=== PATIENT | male | born 1930 | race Caucasian/White ===

== ENCOUNTER 2016-12-13 12:11 | Outpatient (CLI) ==
[2014-11-26 08:01] VITALS: BMI 23.0
== END 2016-12-13 12:12 | disposition home or self-care (01) ==
LOC: LAB 12:11
PROVIDERS: ATTEND General Practice
DX: L02.91 Cutaneous abscess, unspecified (principal)
CPT/HCPCS: 87070; 87186

== ENCOUNTER 2016-12-15 10:36 | Inpatient (IN) | payer OTHER ==
[2016-12-15 11:13] VITALS: BMI 24.3
[2016-12-15] MEDS ORDERED: NON-FORMULARY MEDICATION (Clindamycin Hcl [Clindamycin Hcl] 300 MG) PO SCH (12:30)
[2016-12-15] MEDS: INFUVITE ADULT 10 ML in D5%-1/2NS-KCL 20 MEQ/L IV SOL 1,000 ML IV SCH (13:35)
[2016-12-15] MEDS: CLEOCIN PO SCH ×2 (14:07→17:04)
[2016-12-15 16:39] LABS: BASOPHILS # (AUTO) 0.1 K/uL (0-0.2); BASOPHILS % (AUTO) 1.1 % (0.0-3.0); EOSINOPHILS # (AUTO) 0.4 K/ul (0.0-0.7); EOSINOPHILS % (AUTO) 3.8 % (0.0-7.0); HEMATOCRIT 49.7 % (42.0-52.0); HEMOGLOBIN 16.4 g/dl (14.0-18.0); IMMATURE GRANULOCYTE % (AUTO) 0.5 % (0.0-5.0); LYMPHOCYTES # (AUTO) 1.6 K/uL (0.60-3.4); LYMPHOCYTES % (AUTO) 16.5 (10.0-50.0); MEAN CORPUSCULAR HEMOGLOBIN 31.8 pg (27.0-31.0); MEAN CORPUSCULAR VOLUME 96.3 fl (80.0-94.0); MONOCYTES # (AUTO) 1.4 K/uL (0.4-2.0); NEUTROPHILS # (AUTO) 6.2 K/ul (2.0-6.9); NEUTROPHILS % (AUTO) 64.1; PLATELET COUNT 238 10^3/uL (140-440); RED BLOOD COUNT 5.16 10^6/ul (4.70-6.10); WHITE BLOOD COUNT 9.64 K/ul (4.2-10.2)
[2016-12-15] MEDS: GLUCOPHAGE PO SCH (17:03)
[2016-12-15 17:11] LABS: ALBUMIN 3.3 g/dL (3.4-5.0); ALBUMIN/GLOBULIN RATIO 0.97; ANION GAP 13.3; BILIRUBIN,TOTAL 1.06 mg/dL (0.00-1.20); BUN/CREATININE RATIO 21.15; CALCIUM 9.2 mg/dL (8.2-10.2); CHOL/HDL RATIO 4.4 (4.5-6.4); CREATININE 1.04 mg/dL (0.60-1.10); POTASSIUM 4.3 mmol/L (3.5-5.1); TOTAL PROTEIN 6.7 g/dL (5.8-8.1)
[2016-12-15 17:27] LABS: BILIRUBIN,URINE Negative (NEGATIVE); KETONES,URINE Negative (NEGATIVE); LEUKOCYTE ESTERASE ,URINE Negative (NEGATIVE); NITRITE,URINE Negative (NEGATIVE); PH,URINE 5.5 (5-9); PROTEIN,URINE Negative (NEGATIVE); URINE, BLOOD Negative (NEGATIVE)
[2016-12-15] MEDS ORDERED: CLEOCIN ONE (20:59)
[2016-12-15] MEDS: CLEOCIN 300 MG in SODIUM CHLORIDE 50 ML IV SCH (20:59)
[2016-12-15] MEDS: JANUVIA PO SCH (21:03)
[2016-12-15] MEDS: ZOCOR PO SCH (21:03)
[2016-12-15 21:06] LABS: ADD URINE MICROSCOPIC NO
[2016-12-16] MEDS ORDERED: CLEOCIN ONE ×2 (00:34→06:19)
[2016-12-16] MEDS: CLEOCIN 300 MG in SODIUM CHLORIDE 50 ML IV SCH ×2 (00:53→06:23)
[2016-12-16] MEDS ORDERED: INFUVITE ADULT IV ONE ×2 (01:52→17:35)
[2016-12-16] MEDS: INFUVITE ADULT 10 ML in D5%-1/2NS-KCL 20 MEQ/L IV SOL 1,000 ML IV SCH ×2 (02:49→17:39)
[2016-12-16] MEDS: GLUCOPHAGE PO SCH ×2 (08:05→19:14)
[2016-12-16] MEDS: ZETIA PO SCH (08:06)
[2016-12-16] MEDS: LANOXIN PO SCH (08:06)
[2016-12-16] MEDS: HUMALOG SUBCUT PRN (08:07)
[2016-12-16] MEDS ORDERED: DIGOXIN 0.25 MG PO SCH (09:00)
--- NOTE | 2016-12-16 11:29 | HP ---
CHIEF COMPLAINT: Poor appetite, weakness, dehydration. SOURCE OF HISTORY: Caregiver, plus daughter. HISTORY OF PRESENT ILLNESS: The patient was seen 12/13/2016 at the office because of the raised red area with tenderness in the lower abdomen. The caregiver mentioned that she did only notice that today, the day of presentation to the office. The surrounding area was firm and measures approximately 8 X 5 or 6 cm. The area was cleaned with Betadine and the scab was removed. It revealed 5 small openings surrounding the central opening exuding purulent material. It appeared to be a carbuncle. Culture and sensitivity specimen was obtained. There is surrounded necrotic tissue at the center. The patient was then treated with Clindamycin 300 mg every 6 hours by mouth. The patient was seen today at the office and the caregiver, as well as the daughter mentioned that the patient had not been eating, nor drinking. He does look weaker and more or less drowsy. Culture revealed staph aureus methicillin resistant. Because of the poor intake of solids and liquids and being diabetic that I felt the patient required admission to apply fluids, as well as electrolytes and control the blood sugar and administer the antibiotics IV. No sensitivity results yet available to me at the time of presentation at the office. The patient and the daughter was agreeable for the planned admission. PAST PERSONAL HISTORY: The patient had previous deep venous thrombosis and has an inferior vena cava filter. She was recently diagnosed with diabetes mellitus. The patient had minimal cognitive impairment in 2008 that progressed remarkable to now. The patient had atrial fibrillation treated with medication plus a pacemaker. Prostatic carcinoma operated, inguinal hernia operated, cardiac catheterization and angioplasty with stent application. Pneumonia, degenerative disc disease, as well as degenerative joint disease of knees. Venous insufficiency bilateral with venous discoloration, subacute subdural hematoma left that was operated frontal bore hole left 2010. He had an episode of fall back in 2010. FAMILY HISTORY: Mother had CVA and cerebral tumor, plus diabetes. Father had chronic obstructive lung disease with respiratory failure. SOCIAL HISTORY: The patient is a and resides at the [facility] and has a caregiver in the morning. He does not smoke any cigarettes or drink any alcoholic beverages. MEDICATIONS: Prior to this admission. Simvastatin 40 mg daily Zetia 10 mg daily Digoxin 0.25 mg daily Benadryl 4.5 mg twice a day Ocuvite Vitamin one daily ALLERGIES: Codeine. REVIEW OF SYSTEMS: CONSTITUTIONAL: The patient had no fever and no chills, but is seemingly fatigued by his general appearance compared to two days ago. CARRY ALL DRIVER: The patient has cognitive problems. No seizures or no loss of consciousness. VISUAL: The patient is able to see well, but difficult to assess whether he has transient loss of vision. He denies any double vision. AUDITORY: The patient has hearing aid, but no pain. RESPIRATORY: Negative. CARDIOVASCULAR: Denies any chest pain or chest oppression. GASTROINTESTINAL: The patient has poor appetite and intake of solids and liquids are markedly low. The patient claimed to be not feeling well and has no appetite to eat. GENITOURINARY: The patient is incontinent of urine. MUSCULOSKELETAL: The patient has problems with weakness and also with balance and needed to walk with someone. INTEGUMENT: The patient has a raised red area in the lower abdomen below the umbilicus with central necrosis about 5 mm in size. The opening surrounding the central larger one is not draining anymore. The caregiver did claim that it had drained a lot from the previous dressing. He also has one area on the right dorsal surface of the index finger. It is not draining. ENDOCRINE: The patient was noted to have diabetes about one month ago. HEMATOLOGIC: No history of prolonged bleeding and no subcutaneous ecchymosis. PSYCHIATRIC: The patient has cognitive impairment. Affect appears to be okay. PHYSICAL EXAMINATION: GENERAL: We have an 86 year old male admitted to the hospital because of poor oral intake of solids and liquids and more weakness. He has an abscess in the lower abdominal wall and the culture showed MRSA. He is also diabetic. VITAL SIGNS: Temperature 97.5, pulse 92, blood pressure 141/80, respiratory rate 20, oxygen saturation 94 at room air. HEAD: Unremarkable. FACE: Symmetrical and equal with no facial weakness. Palpation of the frontal and maxillary sinus areas does not cause any pain. EYES: Pupils equal/reactive to light. Conjunctivae not pale. Sclerae not icteric. MOUTH: Unremarkable. THROAT: No inflammation, tumors or exudate. NECK: No masses. No bruit. No tenderness. No rigidity. CHEST: Symmetrical and equal with good expansion. LUNGS: Breath sounds are heard in both sides. No rales or wheezing. HEART: Audible and regular, probably because of the pacemaker. No murmurs. ABDOMEN: Flat with raised red area with a central necrotic area surrounded by five small openings, mid lower abdomen below the umbilicus. Surrounding area is indurated and less tender. The rest of the abdomen is unremarkable and the bowel sounds were active. EXTERNAL GENITALIA: Not examined. RECTAL: Not examined. LOWER EXTREMITIES: Essentially symmetrical and equal with venous discoloration. The pedal pulses are absent. UPPER EXTREMITIES: Symmetrical and equal. ASSESSMENT: 1. ABSCESS LOWER ABDOMEN, MRSA 2. DIABETES MELLITUS, UNCONTROLLED 3. ANOREXIA 4. DEHYDRATION, PROBABLE 5. HISTORY OF ATRIAL FIBRILLATION WITH PACEMAKER 6. HISTORY OF SUBDURAL HEMATOMA, EVACUATED 7. SENILE DEMENTIA PROGRESSIVE 8. URINARY INCONTINENCE 9. HISTORY OF PROSTATIC CARCINOMA OPERATED PROGNOSIS: Guarded. MTDD
[2016-12-16] MEDS: CLEOCIN 600 MG in SODIUM CHLORIDE 50 ML IV SCH ×2 (12:49→20:31)
[2016-12-16] MEDS: JANUVIA PO SCH (20:31)
[2016-12-16] MEDS: ZOCOR PO SCH (20:32)
[2016-12-16] MEDS: AMBIEN PO PRN (22:12)
[2016-12-17] MEDS ORDERED: INFUVITE ADULT IV ONE ×2 (04:37→22:56)
[2016-12-17] MEDS: CLEOCIN 600 MG in SODIUM CHLORIDE 50 ML IV SCH ×3 (04:41→21:30)
[2016-12-17] MEDS: INFUVITE ADULT 10 ML in D5%-1/2NS-KCL 20 MEQ/L IV SOL 1,000 ML IV SCH ×3 (06:32→23:40)
[2016-12-17 06:58] LABS: BASOPHILS # (AUTO) 0.1 K/uL (0-0.2); BASOPHILS % (AUTO) 1.3 % (0.0-3.0); EOSINOPHILS # (AUTO) 0.5 K/ul (0.0-0.7); EOSINOPHILS % (AUTO) 5.6 % (0.0-7.0); HEMATOCRIT 46.9 % (42.0-52.0); HEMOGLOBIN 15.7 g/dl (14.0-18.0); IMMATURE GRANULOCYTE % (AUTO) 0.7 % (0.0-5.0); LYMPHOCYTES # (AUTO) 1.9 K/uL (0.60-3.4); LYMPHOCYTES % (AUTO) 19.4 (10.0-50.0); MEAN CORPUSCULAR HEMOGLOBIN 31.8 pg (27.0-31.0); MEAN CORPUSCULAR HGB CONC 33.5 (31.8-35.4); MEAN CORPUSCULAR VOLUME 94.9 fl (80.0-94.0); MONOCYTES # (AUTO) 1.4 K/uL (0.4-2.0); MONOCYTES % (AUTO) 14.1 (0-10); NEUTROPHILS # (AUTO) 5.7 K/ul (2.0-6.9); NEUTROPHILS % (AUTO) 58.9; PLATELET COUNT 247 10^3/uL (140-440); RED BLOOD COUNT 4.94 10^6/ul (4.70-6.10); WHITE BLOOD COUNT 9.63 K/ul (4.2-10.2)
[2016-12-17] MEDS ORDERED: DIGOXIN 0.25 MG PO SCH (09:00)
[2016-12-17] MEDS: ZETIA PO SCH (09:12)
[2016-12-17] MEDS: GLUCOPHAGE PO SCH ×2 (09:12→17:45)
[2016-12-17 14:14] LABS: ALBUMIN 3.4 g/dL (3.4-5.0); ALBUMIN/GLOBULIN RATIO 1.1; ANION GAP 16.9; BILIRUBIN,TOTAL 1.26 mg/dL (0.00-1.20); BUN/CREATININE RATIO 12.79; CALCIUM 8.9 mg/dL (8.2-10.2); CREATININE 0.86 mg/dL (0.60-1.10); POTASSIUM 4.9 mmol/L (3.5-5.1); TOTAL PROTEIN 6.5 g/dL (5.8-8.1)
[2016-12-17] MEDS: AMBIEN PO PRN (21:29)
[2016-12-17] MEDS: ZOCOR PO SCH (21:30)
[2016-12-17] MEDS: JANUVIA PO SCH (21:30)
[2016-12-18] MEDS: CLEOCIN 600 MG in SODIUM CHLORIDE 50 ML IV SCH (05:00)
[2016-12-18] MEDS: GLUCOPHAGE PO SCH (09:10)
[2016-12-18] MEDS: ZETIA PO SCH (09:10)
[2016-12-18] MEDS: LANOXIN PO SCH (09:11)
[2016-12-18] MEDS: HUMALOG SUBCUT PRN (09:11)
[2016-12-18] MEDS ORDERED: CLEOCIN 600 MG in SODIUM CHLORIDE 100 ML IV SCH (13:00)
[2016-12-18] MEDS ORDERED: BACTROBAN TP ONE (14:18)
[2016-12-18 15:07] VITALS: BP 132/71; TEMP 97.6
[2016-12-18] MEDS ORDERED: BACTROBAN TP SCH (21:00)
--- NOTE | 2016-12-19 09:24 | PN ---
DATE OF VISIT: 12/16/16 SUBJECTIVE: The patient is alert but responsive but very forgetful. He does have senile dementia, probably Alzheimer's. This had been ongoing for some time. The abdominal infection shows regression of the redness as well as the induration. This patient is receiving Clindamycin 600 mg q.8hr. The wound culture was sensitive to Clindamycin, Staph MRSA. The patient did not sleep very well last night and the patient will be given Ambien 5 mg to see if he goes to sleep. We had been giving him Benadryl at the [facility]. Benadryl is not quite a good medication for someone who is old and with senile dementia. Trazodone may be used if Ambien does not help him. OBJECTIVE: V/S: Today at 6:25 p.m. 12/16/16 showed temperature 97.9, pulse 92, BP 142/80, respiratory rate 20, oxygen saturation 96% on room air. PLAN: New anticoagulant medication given since this patient ahd previous subdural hematoma. Blood sugar yesterday was 111 fasting. He was placed on Humalog p.r.n. for protochol before meals. CBC and CMP is ordered for tomorrow. MTDD
--- NOTE | 2016-12-19 15:13 | DS ---
PATIENT IDENTIFICATION: 86 year old male who was seen initially on at the office because of raised red area and tender on the lower abdomen between the symphysis and umbilicus. The caregiver mentioned that she just noticed it today. It wasn't there yesterday. The area on inspection initially had a scabbed center and the area was then prepped with Betadine and the scab was removed. It revealed a rounded central necrotic area about 3 mm in size or slightly bigger surrounded by five small tiny openings. Pressure applied on the indurated surface produced drainage through the opening. Culture and sensitivity was obtained at the office visit and the patient was placed on Clindamycin 300 mg every 6 hours. He was seen on follow up on 12/15/16 and the area is less erythematous and the induration is less. It is minimally less. The patient's daughter, as well as caregiver, told me that the patient had not been eating or drinking. Because of this infection, plus the diabetes mellitus and the anorexia, the patient was felt to require admission to the hospital and was then admitted. HOSPITAL COURSE: The patient is known to have senile dementia, moderate to severe without any psychotic episodes. The patient does follow verbal commands , although he is hard of hearing also. LUNGS: Clear to auscultation, although diminished in both sides. HEART: Normal sinus rhythm. ABDOMEN: Unremarkable aside from the area that is infected, probably carbuncle. VITAL SIGNS: On admission, Temperature 97.3, axillary, pulse 65, blood pressure 133/78, left, 133/74 right, respiratory rate 16, oxygen saturation on room air 96. 5'11", 174 pounds and 9.6 ounces. BMI 24.4. The patient had a CBC times two showing normal WBC and essentially the same on admission and also on the third hospital day. No stabs. Chemistries showed a BUN of 22, creatinine 1.04, GFR, estimated 68, blood sugar 111, A1C 10.4. Wound culture showed staph aureus methicillin resistant, but sensitive to Clindamycin. The patient was then placed on Clindamycin 300 mg every 6 hours IV piggyback and was changed to 600 mg every 8 hours at the suggestion of the Retaining Room Cutter for the hospital. The patient continued to have a normal temperature, afebrile throughout his hospital stay. His blood pressure had fluctuated, but remained mostly normal throughout the hospital stay and respiratory rate fluctuated from 16 to 20 and oxygen saturation from 94 to 96 at room air. His appetite is improved and he ate 100% on 12/17/2016 and also a good appetite on 12/18/2016. His general appearance is good. He was not dyspneic, nor tachypneic. The lungs with breath sounds somewhat diminished, but no rales or wheezing. The heart is audible and regular with good tones. The abdomen is soft with no tenderness. The bowel sounds are active. The indurated area with abscess is much, much smaller. The central necrotic tissue was removed. Lower extremities changes from venous insufficiency, but no tenderness on the calf muscles and no pain on palpation. Upper extremities were symmetrical and equal. FINAL DIAGNOSES: 1. CARBUNCLE LOWER ABDOMEN BELOW THE UMBILICUS, STAPH AUREUS METHICILLIN RESISTANT 2. DIABETES MELLITUS TYPE II 3. SENILE DEMENTIA/ALZHEIMER'S, MODERATE TO SEVERE 4. PERIPHERAL ARTERIAL DISEASE, ABSENT TIBIAL PULSES 5. BILATERAL LOWER LEG AND ANKLE DISCOLORATION SECONDARY TO VENOUS INSUFFICIENCY 6. HISTORY OF SUBDURAL HEMATOMA, SMALL, OPERATED 2010 7. HISTORY OF PROSTATIC CARCINOMA, OPERATED 8. CORONARY ARTERY DISEASE, STATUS POST CARDIAC CATH, PLUS ANGIOPLASTY AND STENT PROGNOSIS: Guarded to poor with regards to his general condition, not the abscess. CRISTYD
--- NOTE | 2017-02-24 15:13 | PN ---
DATE OF VISIT: 12/17/2016 The patient is alert and responsive, but has poor recollection of recent events. The patient did eat quite well today consuming most of his meals. The patient is incontinent of urine. VITAL SIGNS: At 6 p.m. on 12/17/16 showed a temperature of 97.6, pulse of 60, blood pressure 128/80, respiratory rate 14. Oxygen saturation in the early part of the day 5:54 a.m. was 97 at room air. The patient is receiving Clindamycin IV at 300 mg every 6 hours. Clindamycin was increased to 600 mg every 8 hours since 12/16/2016. The patient also received a multivitamin in the IV. No anticoagulant medication is given since this patient has previous subdural hematoma. CONDITION: Improved. MTDD
== END 2016-12-18 15:25 | disposition home or self-care (01) | DRG 603 ==
LOC: SCU 10:36
PROVIDERS: ADMIT General Practice; ATTEND General Practice
DX: L02.231 Carbuncle of abdominal wall (principal); B95.62 Methicillin resistant Staphylococcus aureus infection as the cause of diseases classified elsewhere; E11.9 Type 2 diabetes mellitus without complications; G30.9 Alzheimer's disease, unspecified; F02.80 Dementia in other diseases classified elsewhere, unspecified severity, without behavioral disturbance, psychotic disturbance, mood disturbance, and anxiety; I73.9 Peripheral vascular disease, unspecified; R09.89 Other specified symptoms and signs involving the circulatory and respiratory systems; I25.10 Atherosclerotic heart disease of native coronary artery without angina pectoris; R53.1 Weakness; R63.0 Anorexia; Z86.79 Personal history of other diseases of the circulatory system; Z95.5 Presence of coronary angioplasty implant and graft; Z85.46 Personal history of malignant neoplasm of prostate; Z79.84 Long term (current) use of oral hypoglycemic drugs; Z79.899 Other long term (current) drug therapy
CPT/HCPCS: 36415; 80053; 80061; 80162; 81001; 82962; 83036; 85025; 87070; 87081; 87186; 99223; 99232; 99239

== ENCOUNTER 2016-12-24 09:46 | Inpatient (IN) ==
[2016-12-24] MEDS ORDERED: SODIUM CHLORIDE 1,000 ML IV STA (10:20)
--- NOTE | 2016-12-24 10:20 | ED.PDOC ---
General ED Provider: Dr. FITZ SY Chief Complaint: Abdominal Pain Stated Complaint: Points to abdomen - site of pain. Reportedly winces with pressure uppper abdomen. Time Seen by Physician: 10:05 Mode of Arrival: Wheelchair Information Source: Patient, Family Primary Care Provider: MATT MADRIGAL-[facility] Nursing and Triage Documentation Reviewed and Agree: Yes GI Complaint Exam - Abdominal Pain Complaint/Exam Onset: Gradual Duration: Several days diarrhea; has been on Clinda for MRSA - DC'd from hosp 1 week Symptoms Are: Still present (Finished clinda ; decreased apetite still) Timing: Intermittent (sometimes indicates pain with caregiver) Initial Severity: Mild Current Severity: Mild Location of Pain: Discrete (pointed to site of MRSA) Character: Reports: Unable to describe (Patient not good historian; confusion) Aggravating: Reports: None Alleviating: Reports: None Associated Signs and Symptoms: Reports: Fever (occasional), Cough (some) Review of Systems - Review Of Systems Constitutional: Reports: Malaise Respiratory: Reports: Cough, Wheezing (per caregiver) GI: Reports: Abdominal pain, Diarrhea All Other Systems: Reviewed and Negative Past Medical History - Past Medical History Previously Healthy: No (extended care) Endocrine: Reports: Dyslipidemia Cardiovascular: Reports: CAD Respiratory: Reports: None Hematological: Reports: None Gastrointestinal: Reports: Unknown Genitourinary: Reports: Other (Prostate) 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) Musculoskeletal: Reports: Unknown Cancer: Reports: Other (Prostate) - Surgical History General Surgical History: Reports: Pacemaker, Other (Angioplasty) - Family History Family History: Reports: Unknown - Social History Smoking Status: Never smoker Hx Substance Use: No Alcohol Screening: None Physical Exam - Physical Exam Appearance: Ill-appearing Ill-appearing: Mild Pain Distress: Mild Eyes: DOYLE, EOMI ENT: Oropharynx normal Neck: Supple Respiratory: Airway patent, Rhonchi (coarse R Lower Lobe) Musculoskeletal: ROM intact, No edema Skin: Warm, Dry, Normal color Neurological: Sensation intact, Motor intact, Alert Psychiatric: Affect appropriate Interpretation - Radiology Interpretation Radiology Interpretation By: Radiologist Radiology Results: No acute changes Exam Interpreted: CT Scan (Abdomen pelvis without) Xray Comments: No acoute intra-abdominal or pelvic process to account for symptoms Critical Care Note - Critical Care Note Total Time (mins): 40 Course - Course Hematology/Chemistry: 12/24/16 10:10 12/24/16 10:10 Orders, Labs, Meds: Lab Review 12/24/16 10:10 WBC 9.20 RBC 5.26 Hgb 17.0 Hct 48.4 MCV 92.0 MCH 32.3 H MCHC 35.1 RDW Coeff of Arpit 12.7 Plt Count 256 Immature Gran % (Auto) 0.7 Neut % (Auto) 68.5 Lymph % (Auto) 16.8 [place] % (Auto) 11.6 H Eos % (Auto) 1.4 Baso % (Auto) 1.0 Immature Gran # (Auto) 0.1 Neut # 6.3 Lymph # 1.6 [place] # 1.1 Eos # 0.1 Baso # 0.1 Sodium 140 Potassium 4.2 Chloride 107 Carbon Dioxide 19 L Anion Gap 18.2 BUN 27 H Creatinine 1.36 H Estimated GFR (MDRD) 50.00 BUN/Creatinine Ratio 19.85 Glucose 111 Calcium 9.7 Total Bilirubin 1.84 H AST 25 ALT 23 Alkaline Phosphatase 68 Total Protein 7.1 Albumin 3.9 Globulin 3.2 Albumin/Globulin Ratio 1.22 Orders Category Date Time Status ADMIT PATIENT INPATIENT .TO [facility] (NON-MONITORED ADMISSION 12/24/16 13: 02 Active BED) INTAKE & OUTPUT Q8HR CARE 12/24/16 13:02 Active VITAL SIGNS Q8HR CARE 12/24/16 13:02 Active REGULAR DIET DIETARY 12/24/16 Dinner Ordered CBC W/ AUTO DIFF DAILY@0600 LAB 12/25/16 06:00 Ordered CBC W/ AUTO DIFF DAILY@0600 LAB 12/26/16 06:00 Ordered CBC W/ AUTO DIFF DAILY@0600 LAB 12/27/16 06:00 Ordered CBC W/ AUTO DIFF DAILY@0600 LAB 12/28/16 06:00 Ordered CBC W/ AUTO DIFF DAILY@0600 LAB 12/29/16 06:00 Ordered CBC W/ AUTO DIFF DAILY@0600 LAB 12/30/16 06:00 Ordered CBC W/ AUTO DIFF DAILY@0600 LAB 12/31/16 06:00 Ordered CBC W/ AUTO DIFF DAILY@0600 LAB 01/01/17 06:00 Ordered CBC W/ AUTO DIFF DAILY@0600 LAB 01/02/17 06:00 Ordered CBC W/ AUTO DIFF DAILY@0600 LAB 01/03/17 06:00 Ordered CBC W/ AUTO DIFF DAILY@0600 LAB 01/04/17 06:00 Ordered CBC W/ AUTO DIFF DAILY@0600 LAB 01/05/17 06:00 Ordered CBC W/ AUTO DIFF DAILY@0600 LAB 01/06/17 06:00 Ordered CBC W/ AUTO DIFF DAILY@0600 LAB 01/07/17 06:00 Ordered CBC W/ AUTO DIFF DAILY@0600 LAB 01/08/17 06:00 Ordered CBC W/ AUTO DIFF DAILY@0600 LAB 01/09/17 06:00 Ordered CBC W/ AUTO DIFF DAILY@0600 LAB 01/10/17 06:00 Ordered CBC W/ AUTO DIFF DAILY@0600 LAB 01/11/17 06:00 Ordered CBC W/ AUTO DIFF DAILY@0600 LAB 01/12/17 06:00 Ordered CBC W/ AUTO DIFF DAILY@0600 LAB 01/13/17 06:00 Ordered CBC W/ AUTO DIFF Stat LAB 12/24/16 10:10 Completed COMPREHENSIVE METABOLIC PANEL DAILY@0600 LAB 12/25/16 06:00 Ordered COMPREHENSIVE METABOLIC PANEL DAILY@0600 LAB 12/26/16 06:00 Ordered COMPREHENSIVE METABOLIC PANEL DAILY@0600 LAB 12/27/16 06:00 Ordered COMPREHENSIVE METABOLIC PANEL DAILY@0600 LAB 12/28/16 06:00 Ordered COMPREHENSIVE METABOLIC PANEL DAILY@0600 LAB 12/29/16 06:00 Ordered COMPREHENSIVE METABOLIC PANEL DAILY@0600 LAB 12/30/16 06:00 Ordered COMPREHENSIVE METABOLIC PANEL DAILY@0600 LAB 12/31/16 06:00 Ordered COMPREHENSIVE METABOLIC PANEL DAILY@0600 LAB 01/01/17 06:00 Ordered COMPREHENSIVE METABOLIC PANEL DAILY@0600 LAB 01/02/17 06:00 Ordered COMPREHENSIVE METABOLIC PANEL DAILY@0600 LAB 01/03/17 06:00 Ordered COMPREHENSIVE METABOLIC PANEL DAILY@0600 LAB 01/04/17 06:00 Ordered COMPREHENSIVE METABOLIC PANEL DAILY@0600 LAB 01/05/17 06:00 Ordered COMPREHENSIVE METABOLIC PANEL DAILY@0600 LAB 01/06/17 06:00 Ordered COMPREHENSIVE METABOLIC PANEL DAILY@0600 LAB 01/07/17 06:00 Ordered COMPREHENSIVE METABOLIC PANEL DAILY@0600 LAB 01/08/17 06:00 Ordered COMPREHENSIVE METABOLIC PANEL DAILY@0600 LAB 01/09/17 06:00 Ordered COMPREHENSIVE METABOLIC PANEL DAILY@0600 LAB 01/10/17 06:00 Ordered COMPREHENSIVE METABOLIC PANEL DAILY@0600 LAB 01/11/17 06:00 Ordered COMPREHENSIVE METABOLIC PANEL DAILY@0600 LAB 01/12/17 06:00 Ordered COMPREHENSIVE METABOLIC PANEL DAILY@0600 LAB 01/13/17 06:00 Ordered COMPREHENSIVE METABOLIC PANEL Stat LAB 12/24/16 10:10 Completed Digoxin [Lanoxin] MEDS 12/26/16 09:00 Discontinued 0.25 mg PO EVERY OTHER DAY Digoxin [Lanoxin] MEDS 12/26/16 09:00 Ordered 125 mcg PO EVERY OTHER DAY Ezetimibe [Zetia] MEDS 12/25/16 09:00 Ordered 10 mg PO DAILY Metformin HCl [Glucophage] MEDS 12/24/16 21:00 Ordered 500 mg PO BID Occuvite Vitamin MEDS 12/25/16 09:00 Ordered 1 tab PO DAILY Simvastatin [Zocor] MEDS 12/24/16 21:00 Ordered 40 mg PO BEDTIME Sitagliptin Phosphate [Januvia] MEDS 12/25/16 06:00 Ordered 50 mg PO DAILY LAB Sodium Chloride 0.9% [Sodium Chloride] 1,000 ml MEDS 12/24/16 10:20 Active IV 125 mls/hr CHEST, 1V AP ONLY Stat RADS 12/24/16 10:[address] ABDOMEN/PELVIS WO CONTRAST Stat RADS 12/24/16 12:14 Completed Medications Generic Name Dose Route Start Last Admin Trade Name Freq PRN Reason Stop Dose Admin Digoxin 125 mcg 12/26/16 09:00 Lanoxin PO EVERY OTHER DAY NORMA Ezetimibe 10 mg 12/25/16 09:00 Zetia PO DAILY NORMA Sodium Chloride 1,000 mls @ 125 mls/hr 12/24/16 10:20 12/24/16 10:26 Sodium Chloride IV 12/24/16 18:19 125 mls/hr .Q8H STA Administration Metformin HCl 500 mg 12/24/16 21:00 Glucophage PO BID NORMA Non-Formulary Medication 1 tab 12/25/16 09:00 Occuvite Vitamin PO DAILY NORMA Non-Formulary Medication 0.25 mg 12/25/16 13:53 Digoxin [Lanoxin] PO SUTUTH NORMA Simvastatin 40 mg 12/24/16 21:00 Zocor PO BEDTIME NORMA Sitagliptin Phosphate 50 mg 12/25/16 06:00 Januvia PO DAILY LAB NORMA Discontinued Medications Generic Name Dose Route Start Last Admin Trade Name Freq PRN Reason Stop Dose Admin Non-Formulary Medication 0.25 mg 12/26/16 09:00 Digoxin [Lanoxin] PO EVERY OTHER DAY NORMA Discussed lab findings with daughter; will discuss with Dr. Madrigal Vital Signs: Temp Pulse Resp BP Pulse Ox 12/24/16 09:46 96.9 F L 69 18 114/60 98 Departure - Departure Time of Disposition: 14:00 Disposition: ADMITTED INPATIENT Discharge Problem: Dehydration Condition: Fair Pt referred to PMD for follow-up: Yes (Will see in hospital) Allergies/Adverse Reactions: Allergies codeine Allergy (Verified 12/24/16 09:57) FLUSHING, ITCHING Home Medications: Ambulatory Orders Digoxin [Lanoxin] 0.25 mg PO EVERY OTHER DAY 07/25/14 Simvastatin 40 mg PO BEDTIME 07/25/14 Occuvite Vitamin 1 tab PO DAILY 11/26/14 Ezetimibe [Zetia] 10 mg PO DAILY #30 tab-cap 12/22/15 Digoxin 125 mcg PO EVERY OTHER DAY 12/24/16
[2016-12-24 10:26] LABS: BASOPHILS # (AUTO) 0.1 K/uL (0-0.2); EOSINOPHILS # (AUTO) 0.1 K/ul (0.0-0.7); EOSINOPHILS % (AUTO) 1.4 % (0.0-7.0); HEMATOCRIT 48.4 % (42.0-52.0); IMMATURE GRANULOCYTE % (AUTO) 0.7 % (0.0-5.0); LYMPHOCYTES # (AUTO) 1.6 K/uL (0.60-3.4); LYMPHOCYTES % (AUTO) 16.8 (10.0-50.0); MEAN CORPUSCULAR HEMOGLOBIN 32.3 pg (27.0-31.0); MEAN CORPUSCULAR HGB CONC 35.1 (31.8-35.4); MONOCYTES # (AUTO) 1.1 K/uL (0.4-2.0); MONOCYTES % (AUTO) 11.6 (0-10); NEUTROPHILS # (AUTO) 6.3 K/ul (2.0-6.9); NEUTROPHILS % (AUTO) 68.5; PLATELET COUNT 256 10^3/uL (140-440); RED BLOOD COUNT 5.26 10^6/ul (4.70-6.10)
[2016-12-24 10:43] LABS: ALBUMIN 3.9 g/dL (3.4-5.0); ALBUMIN/GLOBULIN RATIO 1.22; ANION GAP 18.2; BILIRUBIN,TOTAL 1.84 mg/dL (0.00-1.20); BUN/CREATININE RATIO 19.85; CALCIUM 9.7 mg/dL (8.2-10.2); CREATININE 1.36 mg/dL (0.60-1.10); POTASSIUM 4.2 mmol/L (3.5-5.1); TOTAL PROTEIN 7.1 g/dL (5.8-8.1)
--- NOTE | 2016-12-24 10:43 | DI ---
EXAM: Single frontal view of the chest HISTORY: Cough. COMPARISON: Chest x-ray 11/28/2015 FINDINGS: Cardiomediastinal silhouette is unchanged with stable lead wire. There is no pneumothorax or pleural effusion. There is no consolidation, nodule or mass. The osseous structures are unrema rkable. IMPRESSION: No acute cardiopulmonary process.
--- NOTE | 2016-12-24 12:54 | CT ---
EXAM: CT abdomen pelvis without contrast HISTORY: Abdominal pain COMPARISON: None TECHNIQUE: Serial axial images of the abdomen pelvis were performed from the lung bases through the inferior pelvis without contrast. These were viewed in multiple planes. FINDINGS: The lung bases demonstrate minimal bibasilar atelectasis. Evaluation is limited due to lack of contrast. The liver demonstrates an ovoid area of low attenuat ion in the left hepatic lobe on image 20 measuring 0.8 x 1.4 cm. No additional hepatic lesion is id entified. The gallbladder demonstrates layering dense material with no evidence of wall thickening or inflammation. The spleen is unremarkable. The adrenal glands are normal. The right kidney demon strates a nonobstructing 0.2 cm stone in the right kidney. There is a nonobstructing 0.3 cm stone o n the left. There is a minimal lobular appearance of the left kidney with no definitive mass identi fied and mild perinephric stranding. The pancreas is unremarkable. The stomach is partially disten ded. The small bowel in the abdomen and pelvis is normal. The colon is unremarkable. Appendix is not id entified. There is an IVC filter in place. There is moderate atherosclerotic disease of the aorta and at the origin of the SMA and renal arteries. The urinary bladder is distended. There is no derrick e air, free fluid or lymphadenopathy. The osseous structures are unremarkable. Mild degenerative d isease. IMPRESSION: 1. No acute intra-abdominal or pelvic process to account for patient's symptoms. 2. Ovoid low attenuation lesion in the left hepatic lobe is indeterminate by Hounsfield units. If further evaluation is clinically indicated, ultrasound may be obtained. 3. Bilateral nonobstructing renal stones with a mildly lobular appearance of the left kidney. No o bstructive uropathy or hydronephrosis is identified. 4. Moderate atherosclerotic disease with an IVC filter in place. 5. Degenerative disease of the spine.
[2016-12-24 13:48] VITALS: BMI 17.0
[2016-12-24] MEDS: D5%-1/2NS-KCL 20 MEQ/L IV SOL 1,000 ML IV SCH (20:28)
[2016-12-24] MEDS ORDERED: GLUCOPHAGE ONE (20:36)
[2016-12-24] MEDS ORDERED: ZOCOR ONE (20:36)
[2016-12-24] MEDS: VANCOMYCIN SUSP PO SCH (20:45)
[2016-12-24] MEDS ORDERED: GLUCOPHAGE PO SCH (21:00)
[2016-12-24] MEDS ORDERED: ZOCOR PO SCH (21:00)
[2016-12-25] MEDS: VANCOMYCIN SUSP PO SCH ×2 (00:58→05:32)
[2016-12-25] MEDS ORDERED: JANUVIA ONE (04:26)
[2016-12-25] MEDS ORDERED: JANUVIA PO SCH (06:00)
[2016-12-25 07:48] LABS: BASOPHILS # (AUTO) 0.1 K/uL (0-0.2); EOSINOPHILS # (AUTO) 0.4 K/ul (0.0-0.7); EOSINOPHILS % (AUTO) 4.2 % (0.0-7.0); HEMATOCRIT 44.5 % (42.0-52.0); HEMOGLOBIN 15.6 g/dl (14.0-18.0); IMMATURE GRANULOCYTE % (AUTO) 0.7 % (0.0-5.0); LYMPHOCYTES # (AUTO) 1.8 K/uL (0.60-3.4); LYMPHOCYTES % (AUTO) 20.6 (10.0-50.0); MEAN CORPUSCULAR HEMOGLOBIN 32.4 pg (27.0-31.0); MEAN CORPUSCULAR HGB CONC 35.1 (31.8-35.4); MEAN CORPUSCULAR VOLUME 92.5 fl (80.0-94.0); MONOCYTES # (AUTO) 1.1 K/uL (0.4-2.0); MONOCYTES % (AUTO) 12.3 (0-10); NEUTROPHILS # (AUTO) 5.4 K/ul (2.0-6.9); NEUTROPHILS % (AUTO) 61.2; PLATELET COUNT 242 10^3/uL (140-440); RED BLOOD COUNT 4.81 10^6/ul (4.70-6.10)
[2016-12-25 08:05] LABS: ALBUMIN 3.3 g/dL (3.4-5.0); ALBUMIN/GLOBULIN RATIO 1.18; BILIRUBIN,TOTAL 1.67 mg/dL (0.00-1.20); BUN/CREATININE RATIO 20.48; CALCIUM 8.7 mg/dL (8.2-10.2); CREATININE 0.83 mg/dL (0.60-1.10); TOTAL PROTEIN 6.1 g/dL (5.8-8.1)
[2016-12-25] MEDS: D5%-1/2NS-KCL 20 MEQ/L IV SOL 1,000 ML IV SCH (08:35)
[2016-12-25] MEDS: JANUVIA PO SCH (08:35)
[2016-12-25] MEDS: OCCUVITE VITAMIN PO SCH (08:37)
[2016-12-25] MEDS: LANOXIN PO SCH (08:37)
[2016-12-25] MEDS: ZETIA PO SCH (08:38)
[2016-12-25 10:46] LABS: ADD URINE MICROSCOPIC NO; BILIRUBIN,URINE Negative (NEGATIVE); KETONES,URINE Negative (NEGATIVE); LEUKOCYTE ESTERASE ,URINE Negative (NEGATIVE); NITRITE,URINE Negative (NEGATIVE); PROTEIN,URINE Negative (NEGATIVE); URINE, BLOOD Negative (NEGATIVE)
[2016-12-25] MEDS ORDERED: DIGOXIN 0.25 MG PO SCH (13:53)
[2016-12-25] MEDS ORDERED: PROTONIX IV 40 MG in SODIUM CHLORIDE 100 ML IV SCH (19:00)
[2016-12-25] MEDS ORDERED: PROTONIX IV ONE (20:16)
[2016-12-25] MEDS: BACTROBAN TP SCH (20:35)
[2016-12-25] MEDS: AMBIEN PO PRN (22:21)
[2016-12-26 04:39] LABS: BASOPHILS # (AUTO) 0.1 K/uL (0-0.2); EOSINOPHILS # (AUTO) 0.4 K/ul (0.0-0.7); EOSINOPHILS % (AUTO) 4.5 % (0.0-7.0); HEMATOCRIT 44.4 % (42.0-52.0); HEMOGLOBIN 15.2 g/dl (14.0-18.0); IMMATURE GRANULOCYTE % (AUTO) 0.5 % (0.0-5.0); LYMPHOCYTES # (AUTO) 1.8 K/uL (0.60-3.4); LYMPHOCYTES % (AUTO) 18.8 (10.0-50.0); MEAN CORPUSCULAR HEMOGLOBIN 32.1 pg (27.0-31.0); MEAN CORPUSCULAR HGB CONC 34.2 (31.8-35.4); MEAN CORPUSCULAR VOLUME 93.9 fl (80.0-94.0); MONOCYTES # (AUTO) 1.3 K/uL (0.4-2.0); MONOCYTES % (AUTO) 13.6 (0-10); NEUTROPHILS # (AUTO) 5.9 K/ul (2.0-6.9); NEUTROPHILS % (AUTO) 61.6; PLATELET COUNT 227 10^3/uL (140-440); RED BLOOD COUNT 4.73 10^6/ul (4.70-6.10); WHITE BLOOD COUNT 9.55 K/ul (4.2-10.2)
[2016-12-26 05:11] LABS: ALBUMIN 3.4 g/dL (3.4-5.0); ALBUMIN/GLOBULIN RATIO 1.31; ANION GAP 10.3; BILIRUBIN,TOTAL 1.61 mg/dL (0.00-1.20); BUN/CREATININE RATIO 11.57; CALCIUM 8.9 mg/dL (8.2-10.2); CREATININE 0.95 mg/dL (0.60-1.10); DIGOXIN 1.06 ng/mL (1.00-2.00); POTASSIUM 4.3 mmol/L (3.5-5.1)
[2016-12-26] MEDS: BACTROBAN TP SCH ×2 (08:19→20:28)
[2016-12-26] MEDS: ZETIA PO SCH (08:20)
[2016-12-26] MEDS: JANUVIA PO SCH (08:20)
[2016-12-26] MEDS ORDERED: DIGOXIN 0.25 MG PO SCH (09:00)
[2016-12-26] MEDS ORDERED: LANOXIN PO SCH (09:00)
[2016-12-26] MEDS: OCCUVITE VITAMIN PO SCH (09:02)
--- NOTE | 2016-12-26 12:47 | US ---
EXAM: ULTRASOUND CAROTID DUPLEX, BILATERAL HISTORY: Dizziness FINDINGS: Fu-scale ultrasound, color Doppler and spectral analysis was performed. Velocities are in meters per second. By fu scale and color Doppler imaging, there were regions of heterogeneous plaque formation ident ified within the carotid bulbs and internal carotid arteries. These regions of plaque appeared to b e up to at least 50% vessel diameter at some levels especially right bulb. RIGHT: External carotid artery peak systolic velocity: 1.1 Common carotid artery peak systolic velocity/end diastolic velocity: 0.9/0.2 Internal carotid artery peak systolic velocity: 0.9 ICA/CCA peak systolic velocity ratio: 1.1 ICA end diastolic velocity: 0.2 LEFT: External carotid artery peak systolic velocity: 1.3 Common carotid artery peak systolic velocity/end diastolic velocity: 0.7/0.0 Internal carotid artery peak systolic velocity: 0.4 ICA/CCA peak systolic velocity ratio: 0.6 ICA end diastolic velocity: 0.0 The right and left vertebral arteries were antegrade. IMPRESSION: 1. By fu scale and color Doppler imaging, there were regions of heterogeneous plaque formation id entified within the carotid bulbs and internal carotid arteries. These regions of plaque appeared t o be up to at least 50% vessel diameter at some levels especially right bulb. 2. Internal carotid artery peak systolic velocities and ICA/CCA peak systolic velocity ratios indic ate no hemodynamically significant stenosis bilaterally. 3. Both vertebral arteries were antegrade. 4. Given degree of plaque visualized by fu scale and color Doppler imaging, consider correlation with CTA if indicated clinically.
--- NOTE | 2016-12-26 12:49 | HP ---
CHIEF COMPLAINT: Diarrhea, poor intake and weakness. HISTORY OF PRESENT ILLNESS: This patient was admitted to the hospital because of poor appetite with an abscess in the lower abdomen that was treated with Clindamycin IV while in the hospital. He was treated with Clindamycin initially as an outpatient. The was continued on Clindamycin orally post discharge and the patient on follow up at the office was alert, somewhat weak. The caregiver, as well as the daughter, claimed that the patient had been having diarrhea for the last two days, about 20 times a day. The area in the abdomen has improved remarkably and there was no drainage. The bowel sounds were active, but not hyperactive and no tenderness. This patient was then advised to discontinue the Clindamycin and monitor. They needed to give more liquids as much as possible and if He continues to have problems that he should get in touch with me or go to the emergency room. This patient was then brought to the emergency room today, 12/24/16, because of the poor appetite and diarrhea and the weakness. 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 He also had a subdural hematoma that was evacuated. He was diagnosed with diabetes mellitus recently, about a month ago or so. He had minimal cognitive impairment since 2008 and this has progressed to now. The patient had atrial fibrillation treated with a pacemaker, plus medication. Prostatic carcinoma operated, previous inguinal hernia repair, previous cardiac catheterization and coronary artery angioplasty with stent deployment and a history of pneumonia. Degenerative disc disease, as well as degenerative joint disease of the knees. Bilateral venous insufficiency with dermal discoloration secondary to venous insufficiency. FAMILY HISTORY: Mother had CVA and cerebral tumor, plus diabetes. Father had chronic obstructive lung disease. SOCIAL HISTORY: The patient is a and resides at the Assisted Living facility in [place]. He does not smoke any cigarettes, nor drink any alcoholic beverages. He had been very active in the community until he developed the senile changes. MEDICATIONS: Prior to this admission Simvastatin 40 mg daily Digoxin 0.25 mg daily Ocuvite one tablet daily Zetia 10 g daily Metformin 500 mg twice a day Januvia 50 mg daily Digoxin .125 mg every other day ALLERGIES: Codeine. REVIEW OF SYSTEMS: CONSTITUTIONAL: The patient had no fever and no chills, somewhat weak. 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 No recollection of recent events. No history of seizure disorder. VISUAL: The patient claims that he sees okay and denies any double vision, blurred vision or transient loss of vision. AUDITORY: The patient is hard of hearing and denies any tinnitus, pain or drainage in both ears. RESPIRATORY: Denies any cough or history of hemoptysis. CARDIOVASCULAR: The patient denies any chest pain or chest oppression. GASTROINTESTINAL: The patient's appetite has decreased and had not been eating or drinking enough. He also had diarrhea according to the daughter and caregiver numbering about 20 times a day for the last two days. GENITOURINARY: The patient has frequency of urination, but doesn't complain of pain. MUSCULOSKELETAL: The patient does move and doesn't complain very much of any pain in the joints. ENDOCRINE: The patient has frequency of urination, but no pain. He does not have excessive thirst. He is diabetic and recently diagnosed. HEMATOLOGIC: The patient had history of subdural hematoma and it was evacuated, but no history of prolonged bleeding. He had previous surgeries without any history extended bleeding after. PSYCHIATRIC: The patient has senile dementia with cognitive impairment. He does answer and he still recognizes me. He is still very pleasant. PHYSICAL EXAMINATION: GENERAL: We have an 86 year old male admitted to the hospital because of poor oral intake with diarrhea. The patient had been on Clindamycin and this has been discontinued. VITAL SIGNS: On admission, 12/24/2016 at 9:46 a.m., temperature 96.9, pulse 69, blood pressure 114/60, respiratory rate 18, oxygen saturation 98 on room air. He is 5'11" reportedly and weighed 174 pounds. There is a recoring in his chart where this patient was weighed and recorded at 119. I do believe this is an error. HEAD: Unremarkable. FACE: Symmetrical and equal with no facial weakness and no tenderness in the frontal or maxillary sinus areas to palpation under pressure. EYES: Pupils equal/reactive to light. Conjunctivae not pale. Sclerae not icteric. MOUTH: Unremarkable. THROAT: No inflammation, no tumors or exudates. NECK: No masses. No bruit. No tenderness. No rigidity. CHEST: Symmetrical and equal with good expansion with no remarkable tenderness. LUNGS: Breath sounds are heard in both sides. No rales or wheezing. HEART: Audible and regular with good tones most of the time. This patient has a pacemaker. ABDOMEN: Flat, soft with no remarkable tenderness, some epigastric sensitivity to palpation. No masses palpable. Bowel sounds are active. EXTERNAL GENITALIA: Not examined. RECTAL: Not done. LOWER EXTREMITIES: Essentially symmetrical and equal with venous discoloration. Pedal pulses are absent. UPPER EXTREMITIES: Symmetrical and equal. ASSESSMENT: 1. DEHYDRATION 2. ANTIBIOTIC ASSOCIATED COLITIS POSSIBLE (CLOSTRIDIUM DIFFICLE COLITIS) 3. TYPE II DIABETES MELLITUS, RECENT DIAGNOSIS 4. SENILE DEMENTIA, MODERATELY SEVERE TO SEVERE 5. HISTORY OF ATRIAL FIBRILLATION WITH PACEMAKER 6. ABSCESS ABDOMEN RESOLVING SATISFACTORILY 7. HISTORY OF PROSTATIC CARCINOMA, OPERATED 8. HISTORY OF URINARY INCONTINENCE AND FREQUENCY PROGNOSIS: Guarded. MTDD
--- NOTE | 2016-12-26 13:14 | PN ---
DATE OF VISIT: 12/25/16 The patient today is alert and responsive and follows verbal commands, but forgetful. His senile dementia has progressed. His CBC still is normal, except for the slightly elevated MCV at 32.4. Platelet count normal. Chemistry-CO2 19 , the same as yesterday. BUN 17 now and creatinine is 0.83 and E GFR 88. Blood sugar 120, total bilirubin slightly elevated at 1.67 and 1.84 yesterday, but the AST and ALT are normal. Urinalysis today is normal. VITAL SIGNS: At 6 p.m., temperature 97.5, pulse 68, blood pressure 128/56, respiratory rate 18. No oximetry. LUNGS: Clear to auscultation in both sides. HEART: Normal sinus rhythm. ABDOMEN: Some epigastric tenderness. This patient is complaining of pain in the epigastric area after eating. This patient may have some gastritis or maybe gastric ulcer. We will try to give him a PPI/Protonix 40 mg IV piggyback. We will see how he does. He still has not had a bowel movement today. The Vancomycin had never been given to him. The nurse had contacted me with regards to the Vancomycin. The pharmacist had advised that it be reduced to 250 and then followed by 125 every 6 hours. I did inform the nurse from my perspective that the Vancomycin is not absorbable and don't think it has any renal concerns for medications that are not absorbed in the systemic circulation. At any rate, the Vancomycin had never been instituted, since this patient had not had any diarrhea at all. [facility]
[2016-12-26] MEDS ORDERED: TYLENOL PO STA (14:49)
--- NOTE | 2016-12-26 15:05 | PN ---
DATE OF VISIT: 12/24/16 This patient was admitted to the hospital today via the emergency room because of some abdominal pain, as well as diarrhea. This patient was seen at the office a day or so ago and the caregiver, as well as the daughter mentioned that he had frequent bowel movements, so I told them to stop the Clindamycin. Emergency room physician did communicate with me with regards to admission of this patient. I did ask him to do a CT scan of the abdomen and pelvis without contrast to see if there is any abnormalities. CT scan of the abdomen showed no acute intraabdominal or pelvic process to account for the patients pain. Low attenuation lesion in the left hepatic lobe and ultrasound was recommended. He also had bilateral renal stones, nonobstructing. Chest x-ray showed no acute cardiopulmonary processes. I had ordered Vancomycin oral 250 mg liquid every 6 hours after the stool was obtained for Clostridium difficile toxin. I emphasized to them that to never initiate the Vancomycin until after we have obtained the stool specimen. At about 6 p.m., the nurses still had not had any stool specimen since the patient had not had any bowel movement. The patient does have some frequency of urination. He does not complain of any pain with this frequency. This patient has senile dementia, as well as a previous subdural hematoma that was evacuated. The area in the abdomen, which was a carbuncle, has improved remarkably. In induration is much, much smaller and the redness is much less and no drainage. LUNGS: Clear. HEART: Audible and regular with good tones. This patient moves his legs quite a lot and also tries to get out of bed. I did remind him to make sure that he calls the nurses. I know he would not remember that instruction. The patient has a bed alarm. We need to lower the bed to the lowest setting. He had not been eating according to the family. His hematology showed normal hemoglobin and hematocrit. Slightly higher MCH. Normal electrolytes. BUN 27, creatinine 1.36. E GFR 50. The rest of the chemistries were unremarkable. The patient is given IV fluids for electrolyte replacement. MTDD
[2016-12-26] MEDS: AMBIEN PO PRN (20:26)
[2016-12-26] MEDS ORDERED: PROTONIX IV 40 MG in SODIUM CHLORIDE 100 ML IV SCH (21:00)
[2016-12-27 04:56] LABS: BASOPHILS # (AUTO) 0.1 K/uL (0-0.2); BASOPHILS % (AUTO) 1.3 % (0.0-3.0); EOSINOPHILS # (AUTO) 0.6 K/ul (0.0-0.7); HEMOGLOBIN 14.4 g/dl (14.0-18.0); IMMATURE GRANULOCYTE % (AUTO) 1.4 % (0.0-5.0); LYMPHOCYTES # (AUTO) 1.7 K/uL (0.60-3.4); LYMPHOCYTES % (AUTO) 21.1 (10.0-50.0); MEAN CORPUSCULAR HEMOGLOBIN 32.4 pg (27.0-31.0); MEAN CORPUSCULAR HGB CONC 34.3 (31.8-35.4); MEAN CORPUSCULAR VOLUME 94.6 fl (80.0-94.0); NEUTROPHILS # (AUTO) 4.5 K/ul (2.0-6.9); NEUTROPHILS % (AUTO) 56.2; PLATELET COUNT 219 10^3/uL (140-440); RED BLOOD COUNT 4.44 10^6/ul (4.70-6.10)
[2016-12-27 05:22] LABS: ALBUMIN 3.1 g/dL (3.4-5.0); ALBUMIN/GLOBULIN RATIO 1.24; ANION GAP 13.1; BILIRUBIN,TOTAL 0.8 mg/dL (0.00-1.20); BUN/CREATININE RATIO 15.68; CALCIUM 8.6 mg/dL (8.2-10.2); CREATININE 1.02 mg/dL (0.60-1.10); POTASSIUM 4.1 mmol/L (3.5-5.1); TOTAL PROTEIN 5.6 g/dL (5.8-8.1)
[2016-12-27] MEDS: JANUVIA PO SCH (08:07)
[2016-12-27] MEDS: LANOXIN PO SCH (08:07)
[2016-12-27] MEDS: ZETIA PO SCH (08:08)
[2016-12-27] MEDS: BACTROBAN TP SCH (08:08)
[2016-12-27] MEDS: OCCUVITE VITAMIN PO SCH (08:10)
[2016-12-27 14:03] VITALS: BP 138/72; TEMP 98
--- NOTE | 2016-12-28 14:00 | DS ---
PATIENT IDENTIFICATION: 86 year old male who presented via relatives to the emergency room because of abdominal pain, mostly epigastric and he had diarrhea for the last three days. The patient also was noted to have a poor appetite according to the caregiver. This patient had a carbuncle below the umbilicus near the midline and was treated with Clindamycin orally and then IV. The bacteria was sensitive to Clindamycin. He was discharged with Clindamycin and in the course of the follow up the patient was noted by the caregiver to have developed diarrhea about two days prior to the examination, a day before presenting to the emergency room. HOSPITAL COURSE: The patient on examination was alert and does follow verbal commands, but has very poor recollection of recent events. He has senile dementia which is progressive and now severe. He is still ambulatory, but needed minimal help to stabilize him. LUNGS: Clear to auscultation. HEART: Audible with good tones. ABDOMEN: The abdomen had some epigastric tenderness, but no masses. No muscular guarding. Bowel sounds are active. The pain the abdomen was mostly after eating. Initial laboratories shows a normal WBC with hemoglobin of 17, BUN 27, creatinine 1.36, GFR 50. The patient was felt to be dehydrated and so IV fluids with Dextrose, plus electrolytes replacement was done. Subsequent chemistries showed normalizing BUN and the E GFR had risen to as high as 88 with a BUN of 17. Creatinine has returned to normal at 2.83 and remained normal with some variation. Vancomycin oral 250 mg every 6 hours was ordered after the collection of stool specimen for clostridium difficile toxin. The patient, however, while in the hospital on the first hospital day never had any bowel movement, as well as the second hospital day. The patient had one bowel movement in the days that he had been in the hospital 12/24 to 12/27. The patient's appetite had improved and he was consuming meals anywhere between 75 to 100%. The patient was given Protonix IV because of the epigastric pain. That seemed to have resolved the problem. The patient at the time of discharge was alert and responsive and follows verbal commands. He is smiling. He does recognize me. LUNGS: Clear to auscultation in both sides. HEART: Audible with good tones. ABDOMEN: The wound in the abdomen is near completely resolved. There is no epigastric pain or significant tenderness. This patient had a chest x-ray on admission showing no acute cardiopulmonary process. CT scan of the abdomen and pelvis without contrast with no acute intra- abdominal or pelvis processes to account for the patient's pain in the epigastric area. The interior vena cava filter is in place. Indeterminant left hepatic lobe lesion. Ultrasound was recommended. Carotid studies, bilateral because of dizziness showed no hemodynamic significant stenosis bilaterally. Both vertebral arteries are antegrade. His stenosis is equal to about 50% of the diameter. This patient will be scheduled for liver ultrasound upon returning to the office for follow-up. The caregiver is in the room and will be bringing the patient back to the Assisted Living facility. PLAN: 1. He is being discharged today back to the Assisted Living. 2. He is to see me in one week at the office to inspect the wound in the lower abdomen. FINAL DIAGNOSES: 1. DEHYDRATION, RESOLVED. 2. HISTORY OF DIARRHEA, RESOLVED. 3. UPPER ABDOMINAL PAIN MOSTLY EPIGASTRIC PROBABLY SECONDARY TO GASTRITIS, IMPROVED 4. CARBUNCLE LOWER ABDOMEN BELOW THE UMBILICUS, RESOLVING 5. SENILE DEMENTIA, MODERATE TO SEVERE 6. DIABETES MELLITUS TYPE II, RECENT 7. LOW ATTENUATION LESION OF LEFT HEPATIC LOBE, INDETERMINATE 8. BILATERAL RENAL STONES PROGNOSIS: Guarded to poor. MTDD
--- NOTE | 2017-03-02 09:15 | PN ---
DATE OF VISIT: 12/26/16 The patient was admitted because of the diarrhea and claimed to be about 20 times a day and was seen at the emergency room and subsequently admitted. This patient had been on Clindamycin previously. The patient, however, since admission did not have any diarrhea stool at all. He had one bowel movement on 12/25/16 and none today, 12/26/16. His appetite had been fairly good consuming anywhere between 75 to 100% of the meals. He complained of headache, but the headache was relieved with Tylenol and so no further studies was requested. His CBC on 12/26/2016 was unremarkable, as well as the chemistry with some slight abnormality, but not clinically significant. Doppler studies of the carotid was done showing no hemodynamic compromise of this area. VITAL SIGNS: On 12/26/2016 at 6 p.m. showed a temperature of 97.4, pulse of 64 , blood pressure 106/68, respiratory rate 18, oxygen saturation in the later part of the evening was 98 at room air. CONDITION: Stable. No further diarrhea and the area in the lower abdomen has improved remarkably and the redness is almost resolved and no drainage. LUCIA
== END 2016-12-27 14:33 | disposition home or self-care (01) | DRG 641 ==
LOC: ED 09:46 → MEDSURG B 13:23
PROVIDERS: ADMIT General Practice; ATTEND General Practice
DX: E86.0 Dehydration (principal); L02.211 Cutaneous abscess of abdominal wall; R10.10 Upper abdominal pain, unspecified; E11.9 Type 2 diabetes mellitus without complications; I48.91 Unspecified atrial fibrillation; I65.23 Occlusion and stenosis of bilateral carotid arteries; R93.2 Abnormal findings on diagnostic imaging of liver and biliary tract; N20.0 Calculus of kidney; B95.62 Methicillin resistant Staphylococcus aureus infection as the cause of diseases classified elsewhere; R19.7 Diarrhea, unspecified; F03.90 Unspecified dementia, unspecified severity, without behavioral disturbance, psychotic disturbance, mood disturbance, and anxiety; K59.00 Constipation, unspecified; R35.0 Frequency of micturition; Z79.899 Other long term (current) drug therapy; Z86.718 Personal history of other venous thrombosis and embolism; Z95.828 Presence of other vascular implants and grafts; Z95.0 Presence of cardiac pacemaker; R41.0 Disorientation, unspecified
CPT/HCPCS: 36415; 80053; 80162; 81001; 82150; 83690; 85025; 87070; 87081; 96360; 96361; 99223; 99232; 99239; 99284

== ENCOUNTER 2016-12-28 09:40 | Outpatient (CLI) | END 2016-12-28 09:41 | LOC: AMBL 09:40 | PROVIDERS: ATTEND Emergency Medicine | DX: R41.82 Altered mental status, unspecified (principal); Z86.73 Personal history of transient ischemic attack (TIA), and cerebral infarction without residual deficits ==

== ENCOUNTER 2017-01-10 12:54 | Outpatient (CLI) ==
[2017-01-10 13:46] LABS: BASOPHILS # (AUTO) 0.1 K/uL (0-0.2); BASOPHILS % (AUTO) 1.3 % (0.0-3.0); EOSINOPHILS # (AUTO) 0.6 K/ul (0.0-0.7); EOSINOPHILS % (AUTO) 6.6 % (0.0-7.0); HEMATOCRIT 47.4 % (42.0-52.0); HEMOGLOBIN 16.2 g/dl (14.0-18.0); IMMATURE GRANULOCYTE % (AUTO) 0.4 % (0.0-5.0); LYMPHOCYTES # (AUTO) 1.6 K/uL (0.60-3.4); LYMPHOCYTES % (AUTO) 18.6 (10.0-50.0); MEAN CORPUSCULAR HEMOGLOBIN 32.4 pg (27.0-31.0); MEAN CORPUSCULAR HGB CONC 34.2 (31.8-35.4); MEAN CORPUSCULAR VOLUME 94.8 fl (80.0-94.0); MONOCYTES # (AUTO) 0.8 K/uL (0.4-2.0); MONOCYTES % (AUTO) 9.6 (0-10); NEUTROPHILS # (AUTO) 5.4 K/ul (2.0-6.9); NEUTROPHILS % (AUTO) 63.5; PLATELET COUNT 214 10^3/uL (140-440); WHITE BLOOD COUNT 8.44 K/ul (4.2-10.2)
[2017-01-10 14:13] LABS: ALBUMIN 3.5 g/dL (3.4-5.0); ANION GAP 15.4; BUN/CREATININE RATIO 17.47; CALCIUM 8.9 mg/dL (8.2-10.2); CREATININE 1.03 mg/dL (0.60-1.10); PHOSPHORUS 3.1 mg/dL (2.3-3.7); POTASSIUM 4.4 mmol/L (3.5-5.1)
== END 2017-01-10 12:55 | disposition home or self-care (01) ==
LOC: LAB 12:54
PROVIDERS: ATTEND General Practice
DX: E78.5 Hyperlipidemia, unspecified (principal); E11.9 Type 2 diabetes mellitus without complications; R19.7 Diarrhea, unspecified; R06.02 Shortness of breath; Z79.899 Other long term (current) drug therapy
CPT/HCPCS: 36415; 80069; 83880; 85025

== ENCOUNTER 2017-03-01 12:15 | Outpatient (CLI) ==
[2017-03-01 12:43] LABS: BASOPHILS # (AUTO) 0.1 K/uL (0-0.2); EOSINOPHILS # (AUTO) 0.4 K/ul (0.0-0.7); EOSINOPHILS % (AUTO) 4.5 % (0.0-7.0); HEMATOCRIT 44.8 % (42.0-52.0); HEMOGLOBIN 15.2 g/dl (14.0-18.0); IMMATURE GRANULOCYTE % (AUTO) 0.5 % (0.0-5.0); LYMPHOCYTES # (AUTO) 1.5 K/uL (0.60-3.4); LYMPHOCYTES % (AUTO) 18.4 (10.0-50.0); MEAN CORPUSCULAR HEMOGLOBIN 32.8 pg (27.0-31.0); MEAN CORPUSCULAR HGB CONC 33.9 (31.8-35.4); MEAN CORPUSCULAR VOLUME 96.8 fl (80.0-94.0); MONOCYTES # (AUTO) 0.9 K/uL (0.4-2.0); MONOCYTES % (AUTO) 11.1 (0-10); NEUTROPHILS # (AUTO) 5.4 K/ul (2.0-6.9); NEUTROPHILS % (AUTO) 64.5; PLATELET COUNT 246 10^3/uL (140-440); RED BLOOD COUNT 4.63 10^6/ul (4.70-6.10); WHITE BLOOD COUNT 8.31 K/ul (4.2-10.2)
[2017-03-01 13:00] LABS: BILIRUBIN,URINE Negative (NEGATIVE); KETONES,URINE Negative (NEGATIVE); LEUKOCYTE ESTERASE ,URINE Negative (NEGATIVE); NITRITE,URINE Negative (NEGATIVE); PROTEIN,URINE Negative (NEGATIVE); URINE, BLOOD Negative (NEGATIVE)
[2017-03-01 13:07] LABS: ADD URINE MICROSCOPIC NO
[2017-03-01 13:23] LABS: ALBUMIN 3.5 g/dL (3.4-5.0); ALBUMIN/GLOBULIN RATIO 0.97; ANION GAP 12.7; BILIRUBIN,TOTAL 0.93 mg/dL (0.00-1.20); BUN/CREATININE RATIO 35.8; CALCIUM 9.2 mg/dL (8.2-10.2); CHOL/HDL RATIO 3.2 (4.5-6.4); CREATININE 0.81 mg/dL (0.60-1.10); POTASSIUM 4.7 mmol/L (3.5-5.1); TOTAL PROTEIN 7.1 g/dL (5.8-8.1)
== END 2017-03-01 12:16 | disposition home or self-care (01) ==
LOC: LAB 12:15
PROVIDERS: ATTEND General Practice
DX: E78.5 Hyperlipidemia, unspecified (principal); R73.9 Hyperglycemia, unspecified; I95.1 Orthostatic hypotension; Z79.899 Other long term (current) drug therapy
CPT/HCPCS: 36415; 80053; 80061; 81001; 83036; 85025

== ENCOUNTER 2017-03-21 16:10 | Outpatient (CLI) ==
[2017-03-21 17:04] LABS: FLU INTERNAL QC INTERNAL QC VALID; RAPID FLU A NEGATIVE (NEGATIVE); RAPID FLU B NEGATIVE (NEGATIVE)
== END 2017-03-21 16:11 | disposition home or self-care (01) ==
LOC: LAB 16:10
PROVIDERS: ATTEND Nurse Practitioner Family
DX: R05 Cough (principal); R50.9 Fever, unspecified
CPT/HCPCS: 87651; 87804; 87880

== ENCOUNTER 2017-05-17 16:03 | Outpatient (CLI) | END 2017-05-17 16:04 | disposition home or self-care (01) | LOC: LAB 16:03 | PROVIDERS: ATTEND General Practice | DX: Z51.81 Encounter for therapeutic drug level monitoring (principal); Z79.899 Other long term (current) drug therapy; F19.10 Other psychoactive substance abuse, uncomplicated | CPT/HCPCS: 36415; 80164 ==

== ENCOUNTER 2017-05-23 18:31 | Outpatient (CLI) ==
[2017-05-23 22:40] VITALS: BMI 26.6
== END 2017-05-23 18:32 | disposition home or self-care (01) ==
LOC: AMBL 18:31
PROVIDERS: ATTEND Emergency Medicine
DX: R19.7 Diarrhea, unspecified (principal); R11.0 Nausea; R10.9 Unspecified abdominal pain; F03.90 Unspecified dementia, unspecified severity, without behavioral disturbance, psychotic disturbance, mood disturbance, and anxiety

== ENCOUNTER 2017-05-23 18:51 | Inpatient (IN) ==
--- NOTE | 2017-05-23 18:55 | ED.PDOC ---
General <MERIDAMADY - Last Filed: 05/23/17 20:27> Stated Complaint: Patient is an 87 year old male who is brought to the ER with compalins of consistent diarrhea since noon today. Has also vomited several times. Has a history of dementia and multiple falls Time Seen by Physician: 20:00 Mode of Arrival: Ambulance Information Source: EMT, Assisted Living Exam Limitations: Dementia Nursing and Triage Documentation Reviewed and Agree: Yes <ALLEN ROBERTS - Last Filed: 05/24/17 03:22> ED Provider: Dr. ALLEN ROBERTS Chief Complaint: Diarrhea Primary Care Provider[facility] Review of Systems - Review Of Systems Constitutional: Reports: Loss of appetite Respiratory: Denies: Cough, Short of air, Stridor, Wheezing Cardiac: Denies: Chest pain GI: Reports: Nausea, Poor appetite, Poor fluid intake, Vomiting Musculoskeletal: Reports: No symptoms Skin: Denies: Bruising, Lesions All Other Systems: Other (Limited due to dementia) <ALLEN ROBERTS - Last Filed: 05/24/17 03:22> Past Medical History - Past Medical History Previously Healthy: No (extended care) Endocrine: Reports: Dyslipidemia Cardiovascular: Reports: CAD Respiratory: Reports: None Hematological: Reports: None Gastrointestinal: Reports: Unknown Genitourinary: Reports: Other (Prostate) 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) Musculoskeletal: Reports: Unknown Cancer: Reports: Other (Prostate) - Surgical History General Surgical History: Reports: Pacemaker, Other (Angioplasty) - Family History Family History: Reports: Unknown - Social History Smoking Status: Never smoker Hx Substance Use: No Alcohol Screening: None <MERIDAMADY - Last Filed: 05/23/17 20:27> Physical Exam - Physical Exam Appearance: Ill-appearing Ill-appearing: Moderate Eyes: DOYLE, EOMI, Conjunctiva clear ENT: Nose normal, Oropharynx normal Neck: Supple Respiratory: Airway patent, Breath sounds clear, Breath sounds equal, Respirations nonlabored Cardiovascular: Pulses normal, No murmur, Tachycardia GI/: Soft, Nontender, No masses, Bowel sounds normal, No Organomegaly Musculoskeletal: Normal strength, ROM intact, No edema, No calf tenderness Skin: Warm, Dry, Normal color Neurological: Sensation intact, Motor intact, Reflexes intact, Cranial nerves intact, Alert, Oriented Psychiatric: Anxious <ALLEN ROBERTS - Last Filed: 05/24/17 03:22> Interpretation - Radiology Interpretation Radiology Interpretation By: Radiologist Radiology Results: Positive (mild to moderate distal Colitis, IVC filter.) Exam Interpreted: CT Scan Radiology Interpretation By: Radiologist Radiology Results: Negative Exam Interpreted: Portable CXR - Air Intercept Controller Supervisor Rhythm: Other (Atrial FIB) Ectopy: None - EKG Interpretation Time of EKG #1: 20:56 Rate: Normal Rhythm: Other Ectopy: None [place]: NL ST Segment: Normal Interpretation: Atrial fibrillation <ALLEN ROBERTS - Last Filed: 05/24/17 03:22> Physician Notification - Case Discussed Endorsed To/Discussed With: DR ROBERTS Time of Discussion: 20:00 <MADY MERIDA JR - Last Filed: 05/23/17 20:27> Critical Care Note - Critical Care Note Total Time (mins): 0 <ALLEN ROBERTS - Last Filed: 05/24/17 03:22> Course - Course Hematology/Chemistry: 05/23/17 19:30 05/23/17 19:30 <MADY MERIDA JR - Last Filed: 05/23/17 20:27> - Course Hematology/Chemistry: 05/23/17 19:30 05/23/17 19:30 <ALLEN ROBERTS - Last Filed: 05/24/17 03:22> - Course Orders, Labs, Meds: Lab Review 05/23/17 05/23/17 19:30 20:59 WBC 16.76 H RBC 4.86 Hgb 15.9 Hct 47.2 MCV 97.1 H MCH 32.7 H MCHC 33.7 RDW Coeff of Arpit 14.1 Plt Count 173 Immature Gran % (Auto) 0.5 Neut % (Auto) 88.9 Lymph % (Auto) 3.6 L [place] % (Auto) 6.5 Eos % (Auto) 0.1 Baso % (Auto) 0.4 Immature Gran # (Auto) 0.1 Neut # 14.9 H Lymph # 0.6 [place] # 1.1 Eos # 0.0 Baso # 0.1 Sodium 141 Potassium 5.7 H Chloride 107 Carbon Dioxide 23 Anion Gap 16.7 BUN 25 H Creatinine 1.15 H Estimated GFR (MDRD) 60.00 BUN/Creatinine Ratio 21.73 Glucose 117 H Calcium 8.7 Total Bilirubin 1.35 H AST 36 ALT 31 Alkaline Phosphatase 57 Total Protein 6.5 Albumin 3.6 Globulin 2.9 Albumin/Globulin Ratio 1.24 Amylase 46 Lipase 15 Procalcitonin 0.05 Urine Color Yellow Urine Clarity Clear Urine pH 7.0 Ur Specific [place] 1.015 Urine Protein Negative Urine Glucose (UA) Trace Urine Ketones 1+ Urine Blood Negative Urine Nitrite Negative Urine Bilirubin Negative Urine Urobilinogen 0.2 Ur Leukocyte Esterase Negative H. pylori IgG Antibody Negative Orders Category Date Time Status ADMIT PATIENT INPATIENT .TO [facility] (MONITORED BED) ADMISSION 05/23/17 21: 30 Active ADMIT PATIENT INPATIENT .TO [facility] (NON-MONITORED ADMISSION 05/23/17 21: 14 Inactive BED) EKG-(ED ONLY) Stat CARDIO 05/23/17 20:18 Completed ACTIVITY .Early Mobilization for VTE Prevention CARE 05/23/17 21:17 Active C-DIFF MONITORING (NURSING) BID CARE 05/23/17 19:09 Active GIVE HS SNACK 2100 CARE 05/23/17 21:19 Active INTAKE & OUTPUT Q8HR CARE 05/23/17 21:15 Active TELEMETRY MONITORING TELE CARE 05/23/17 21:31 Active VITAL SIGNS Q4HR CARE 05/23/17 21:16 Active HS SNACK DIETARY 05/23/17 Dinner Ordered ED IV/MEDIPORT/POWERPORT .ONCE EMERGENCY 05/23/17 19:16 Active AMYLASE Stat LAB 05/23/17 19:30 Completed BASIC METABOLIC PANEL DAILY@0600 LAB 05/24/17 06:00 Ordered BASIC METABOLIC PANEL DAILY@0600 LAB 05/25/17 06:00 Ordered BASIC METABOLIC PANEL DAILY@0600 LAB 05/26/17 06:00 Ordered BASIC METABOLIC PANEL DAILY@0600 LAB 05/27/17 06:00 Ordered BASIC METABOLIC PANEL DAILY@0600 LAB 05/28/17 06:00 Ordered BASIC METABOLIC PANEL DAILY@0600 LAB 05/29/17 06:00 Ordered BASIC METABOLIC PANEL DAILY@0600 LAB 05/30/17 06:00 Ordered BASIC METABOLIC PANEL DAILY@0600 LAB 05/31/17 06:00 Ordered BASIC METABOLIC PANEL DAILY@0600 LAB 06/01/17 06:00 Ordered BASIC METABOLIC PANEL DAILY@0600 LAB 06/02/17 06:00 Ordered BASIC METABOLIC PANEL DAILY@0600 LAB 06/03/17 06:00 Ordered BASIC METABOLIC PANEL DAILY@0600 LAB 06/04/17 06:00 Ordered BASIC METABOLIC PANEL DAILY@0600 LAB 06/05/17 06:00 Ordered BASIC METABOLIC PANEL DAILY@0600 LAB 06/06/17 06:00 Ordered BASIC METABOLIC PANEL DAILY@0600 LAB 06/07/17 06:00 Ordered BASIC METABOLIC PANEL DAILY@0600 LAB 06/08/17 06:00 Ordered BASIC METABOLIC PANEL DAILY@0600 LAB 06/09/17 06:00 Ordered BASIC METABOLIC PANEL DAILY@0600 LAB 06/10/17 06:00 Ordered BASIC METABOLIC PANEL DAILY@0600 LAB 06/11/17 06:00 Ordered BASIC METABOLIC PANEL DAILY@0600 LAB 06/12/17 06:00 Ordered C. DIFFICILE Stat LAB 05/24/17 01:50 Received CBC W/ AUTO DIFF DAILY@0600 LAB 05/24/17 06:00 Ordered CBC W/ AUTO DIFF DAILY@0600 LAB 05/25/17 06:00 Ordered CBC W/ AUTO DIFF DAILY@0600 LAB 05/26/17 06:00 Ordered CBC W/ AUTO DIFF DAILY@0600 LAB 05/27/17 06:00 Ordered CBC W/ AUTO DIFF DAILY@0600 LAB 05/28/17 06:00 Ordered CBC W/ AUTO DIFF DAILY@0600 LAB 05/29/17 06:00 Ordered CBC W/ AUTO DIFF DAILY@0600 LAB 05/30/17 06:00 Ordered CBC W/ AUTO DIFF DAILY@0600 LAB 05/31/17 06:00 Ordered CBC W/ AUTO DIFF DAILY@0600 LAB 06/01/17 06:00 Ordered CBC W/ AUTO DIFF DAILY@0600 LAB 06/02/17 06:00 Ordered CBC W/ AUTO DIFF DAILY@0600 LAB 06/03/17 06:00 Ordered CBC W/ AUTO DIFF DAILY@0600 LAB 06/04/17 06:00 Ordered CBC W/ AUTO DIFF DAILY@0600 LAB 06/05/17 06:00 Ordered CBC W/ AUTO DIFF DAILY@0600 LAB 06/06/17 06:00 Ordered CBC W/ AUTO DIFF DAILY@0600 LAB 06/07/17 06:00 Ordered CBC W/ AUTO DIFF DAILY@0600 LAB 06/08/17 06:00 Ordered CBC W/ AUTO DIFF DAILY@0600 LAB 06/09/17 06:00 Ordered CBC W/ AUTO DIFF DAILY@0600 LAB 06/10/17 06:00 Ordered CBC W/ AUTO DIFF DAILY@0600 LAB 06/11/17 06:00 Ordered CBC W/ AUTO DIFF DAILY@0600 LAB 06/12/17 06:00 Ordered CBC W/ AUTO DIFF Stat LAB 05/23/17 19:30 Completed COMPREHENSIVE METABOLIC PANEL Stat LAB 05/23/17 19:30 Completed H. PYLORI SCREEN Stat LAB 05/23/17 19:30 Completed LIPASE Stat LAB 05/23/17 19:30 Completed OCCULT BLOOD, STOOL Stat LAB 05/24/17 01:50 Results PROCALCITONIN Stat LAB 05/23/17 19:30 Completed STOOL CULTURE Stat LAB 05/23/17 Results URINALYSIS C & S IF INDICATED Stat LAB 05/23/17 20:59 Completed 0.9 % Sodium Chloride [Saline Flush] MEDS 05/23/17 19:16 Ordered 1 syr IVF PRN PRN Aspirin [Aspirin Chewable] MEDS 05/24/17 09:00 Ordered 81 mg PO DAILY Carvedilol [Coreg] MEDS 05/24/17 09:00 Ordered 3.125 mg PO BID Divalproex Sodium [Depakote] MEDS 05/24/17 09:00 Ordered 250 mg PO BID Lidocaine HCl [Uro-Jet] MEDS 05/23/17 20:53 Discontinued 10 ml [id number] .STK-MED ONE Melatonin [Melatonin] MEDS 05/24/17 21:00 Ordered 10 mg PO BEDTIME Multivitamin MEDS 05/24/17 09:00 Ordered 1 cap PO DAILY Ondansetron HCl/Pf [Zofran 4 mg/2 ml] MEDS 05/23/17 21:14 Ordered 4 mg IVP Q6H PRN Simvastatin [Zocor] MEDS 05/24/17 21:00 Ordered 40 mg PO BEDTIME Sodium Chloride 0.9% [Sodium Chloride] 1,000 ml MEDS 05/23/17 20:31 Discontinued IV BOLUS Sodium Chloride 0.9% [Sodium Chloride] 2,000 ml MEDS 05/23/17 21:30 Discontinued IV 150 mls/hr RESUSCITATION STATUS Routine OTHERS 05/23/17 21:14 Ordered CHEST, 1V AP ONLY Stat RADS 05/23/17 20:[address] ABDOMEN/PELVIS WO CONTRAST Stat RADS 05/23/17 19:16 Completed Medications Generic Name Dose Route Start Last Admin Trade Name Freq PRN Reason Stop Dose Admin Aspirin 81 mg 05/24/17 09:00 Aspirin Chewable PO DAILY NORMA Carvedilol 3.125 mg 05/24/17 09:00 Coreg PO BID NORMA Divalproex Sodium 250 mg 05/24/17 09:00 Depakote PO BID NORMA Dextrose/Sodium Chloride 1,000 mls @ 83 mls/hr 05/23/17 23:00 05/23/17 23:12 Dextrose 5%-Ns Iv Solution IV 83 mls/hr .Q12H3M NORMA Administration Metronidazole 500 mg/ Sodium 100 mls @ 100 mls/hr 05/23/17 23:00 05/23/17 23: 13 Chloride IV 100 mls/hr Q8HR NORMA Administration Multivitamins 1 cap 05/24/17 09:00 Multivitamin PO DAILY NORMA Non-Formulary Medication 10 mg 05/24/17 21:00 Melatonin [Melatonin] PO BEDTIME NORMA Ondansetron HCl 4 mg 05/23/17 21:14 Zofran 4 Mg/2 Ml IVP Q6H PRN Nausea / Vomiting Simvastatin 40 mg 05/24/17 21:00 Zocor PO BEDTIME NORMA Sodium Chloride 1 syr 05/23/17 19:16 Saline Flush IVF PRN PRN To flush IV Vancomycin HCl 250 mg 05/24/17 09:00 Vancomycin Susp PO QID NORMA Discontinued Medications Generic Name Dose Route Start Last Admin Trade Name Marion PRN Reason Stop Dose Admin Sodium Chloride 1,000 mls @ 1,000 mls/hr 05/23/17 20:31 05/23/17 20:30 Sodium Chloride IV 05/23/17 21:30 1,000 mls/hr BOLUS STA Administration Sodium Chloride 2,000 mls @ 150 mls/hr 05/23/17 21:30 05/23/17 22:16 Sodium Chloride IV 150 mls/hr .[id number] NORMA Administration Vital Signs: Temp Pulse Resp BP Pulse Ox 05/23/17 19:02 98.6 F 108 H 16 130/62 94 L Departure <MADY MERIDA JR - Last Filed: 05/23/17 20:27> - Departure Time of Disposition: 21:40 Pt referred to PMD for follow-up: No Disposition Discussed With: Patient, Family <ALLEN ROBERTS - Last Filed: 05/24/17 03:22> - Departure Disposition: ADMITTED INPATIENT Discharge Problem: Gastroenteritis, Dehydration Condition: Fair Allergies/Adverse Reactions: Allergies codeine Allergy (Unverified 05/17/17 15:21) FLUSHING, ITCHING Home Medications: Ambulatory Orders Simvastatin 40 mg PO BEDTIME 07/25/14 Aspirin 81 mg PO DAILY 01/10/17 Carvedilol [Coreg] 3.125 mg PO BID 05/23/17 Divalproex Sodium [Depakote] 250 mg PO BID 05/23/17 Melatonin 10 mg PO BEDTIME 05/23/17 Multivitamin 1 cap PO DAILY 05/23/17
[2017-05-23 19:34] LABS: BASOPHILS # (AUTO) 0.1 K/uL (0-0.2); BASOPHILS % (AUTO) 0.4 % (0.0-3.0); EOSINOPHILS % (AUTO) 0.1 % (0.0-7.0); HEMATOCRIT 47.2 % (42.0-52.0); HEMOGLOBIN 15.9 g/dl (14.0-18.0); IMMATURE GRANULOCYTE % (AUTO) 0.5 % (0.0-5.0); LYMPHOCYTES # (AUTO) 0.6 K/uL (0.60-3.4); LYMPHOCYTES % (AUTO) 3.6 (10.0-50.0); MEAN CORPUSCULAR HEMOGLOBIN 32.7 pg (27.0-31.0); MEAN CORPUSCULAR HGB CONC 33.7 (31.8-35.4); MEAN CORPUSCULAR VOLUME 97.1 fl (80.0-94.0); MONOCYTES # (AUTO) 1.1 K/uL (0.4-2.0); MONOCYTES % (AUTO) 6.5 (0-10); NEUTROPHILS # (AUTO) 14.9 K/ul (2.0-6.9); NEUTROPHILS % (AUTO) 88.9; PLATELET COUNT 173 10^3/uL (140-440); RED BLOOD COUNT 4.86 10^6/ul (4.70-6.10); WHITE BLOOD COUNT 16.76 K/ul (4.2-10.2)
[2017-05-23 19:44] LABS: H. PYLORI ANTIBODY NEGATIVE (NEGATIVE); H.PYLORI INTERNAL QC INTERNAL QC VALID
[2017-05-23 19:56] LABS: ALBUMIN 3.6 g/dL (3.4-5.0); ALBUMIN/GLOBULIN RATIO 1.24; ANION GAP 16.7; BILIRUBIN,TOTAL 1.35 mg/dL (0.00-1.20); BUN/CREATININE RATIO 21.73; CALCIUM 8.7 mg/dL (8.2-10.2); CREATININE 1.15 mg/dL (0.60-1.10); POTASSIUM 5.7 mmol/L (3.5-5.1); TOTAL PROTEIN 6.5 g/dL (5.8-8.1)
--- NOTE | 2017-05-23 20:18 | CT ---
EXAM: CT ABDOMEN AND PELVIS HISTORY: Abdominal pain, history of prostate cancer TECHNIQUE: CT abdomen and pelvis without intravenous contrast. Images were reconstructed using 3 m m section thickness. Reformations were prepared. COMPARISON: 12/24/2016 FINDINGS: Stable small low attenuation lesion of the left lobe possibly a cyst. Spleen and gallbladder are wi thin normal limits. No pancreatic or adrenal pathology is identified. There is left nephrolithiasis with a 0.5 cm calculus inferiorly. Nonspecific mild bilateral perinephric fat stranding. No hydro nephrosis or evidence of ureteral obstruction. Moderately severe vascular calcifications consistent with atherosclerosis and / or diabetic angiopathy. IVC filter is noted. There is thickening of the distal colon involving the lower descending, sigmoid and rectosigmoid wit h mild surrounding inflammatory infiltration of the abdominal fat suggesting colitis. There is no b owel obstruction or obvious pneumatosis. No abscess or ascites. No diverticulosis is seen. Prominent fatty bilateral inguinal canals. Tiny fatty umbilical hernia. These likely are of no cur rent clinical significance. Degenerative changes of the lower spine. Lung bases reveal a small rig ht pleural effusion. There is no pneumoperitoneum. IMPRESSION: 1. Mild to moderate distal colitis (consider infectious or ischemic). 2. Moderately severe atherosclerosis/diabetic angiopathy. 3. Left nephrolithiasis without obstruction. 4. IVC filter. 5. Small right pleural effusion.
[2017-05-23] MEDS ORDERED: SODIUM CHLORIDE 1,000 ML IV STA (20:31)
[2017-05-23] MEDS ORDERED: URO-JET MUCOUSMEMB ONE (20:53)
[2017-05-23 21:02] LABS: BILIRUBIN,URINE Negative (NEGATIVE); KETONES,URINE 1+ (NEGATIVE); LEUKOCYTE ESTERASE ,URINE Negative (NEGATIVE); NITRITE,URINE Negative (NEGATIVE); PROTEIN,URINE Negative (NEGATIVE); URINE, BLOOD Negative (NEGATIVE)
[2017-05-23 21:03] LABS: ADD URINE MICROSCOPIC NO
[2017-05-23] MEDS ORDERED: TYLENOL PO PRN (21:14)
[2017-05-23] MEDS ORDERED: ZOFRAN 4 MG/2 ML IVP PRN (21:14)
--- NOTE | 2017-05-23 21:29 | DI ---
Exam: Chest one-view History: Confusion FINDINGS: Cardiac silhouette is enlarged. Pulmonary vasculature is normal. No infiltrative opacit ies. Epicardial fat prominence. Trace atelectasis in the right base. No acute chest wall abnormali ty. Single lead pacemaker from the left. Impression: 1. Trace atelectasis on the right. No acute findings otherwise.
[2017-05-23] MEDS ORDERED: SODIUM CHLORIDE 2,000 ML IV SCH (21:30)
[2017-05-23 22:40] VITALS: BMI 26.6
[2017-05-23] MEDS ORDERED: FLAGYL 500 MG/100 ML 100 ML IV ONE (23:11)
[2017-05-23] MEDS: DEXTROSE 5%-NS IV SOLUTION 1,000 ML IV SCH (23:12)
[2017-05-23] MEDS: FLAGYL 500 MG/100 ML 500 MG in PREMIX 100 ML NS 1 BAG IV SCH (23:13)
[2017-05-24 02:07] LABS: OCCULT BLOOD INTERNAL QC 1 INTERNAL QC VALID; OCCULT BLOOD SAMPLE 1 POSITIVE (NEGATIVE)
[2017-05-24 04:30] LABS: WHITE BLOOD COUNT 11.63 K/ul (4.2-10.2)
[2017-05-24 04:31] LABS: BASOPHILS # (AUTO) 0.1 K/uL (0-0.2); BASOPHILS % (AUTO) 0.7 % (0.0-3.0); EOSINOPHILS # (AUTO) 0.1 K/ul (0.0-0.7); EOSINOPHILS % (AUTO) 0.4 % (0.0-7.0); HEMATOCRIT 42.8 % (42.0-52.0); HEMOGLOBIN 14.3 g/dl (14.0-18.0); IMMATURE GRANULOCYTE % (AUTO) 0.4 % (0.0-5.0); LYMPHOCYTES # (AUTO) 1.5 K/uL (0.60-3.4); LYMPHOCYTES % (AUTO) 12.7 (10.0-50.0); MEAN CORPUSCULAR HGB CONC 33.4 (31.8-35.4); MEAN CORPUSCULAR VOLUME 95.7 fl (80.0-94.0); MONOCYTES # (AUTO) 1.4 K/uL (0.4-2.0); MONOCYTES % (AUTO) 12.4 (0-10); NEUTROPHILS # (AUTO) 8.5 K/ul (2.0-6.9); NEUTROPHILS % (AUTO) 73.4; PLATELET COUNT 168 10^3/uL (140-440); RED BLOOD COUNT 4.47 10^6/ul (4.70-6.10)
[2017-05-24] MEDS ORDERED: FLAGYL 500 MG/100 ML 100 ML IV ONE (04:34)
[2017-05-24] MEDS: FLAGYL 500 MG/100 ML 500 MG in PREMIX 100 ML NS 1 BAG IV SCH ×3 (04:36→20:40)
[2017-05-24 05:15] LABS: ANION GAP 13.9; BUN/CREATININE RATIO 22.35; CREATININE 0.85 mg/dL (0.60-1.10); POTASSIUM 3.9 mmol/L (3.5-5.1)
[2017-05-24] MEDS: DEPAKOTE PO SCH ×2 (08:53→20:40)
[2017-05-24] MEDS: ASPIRIN CHEWABLE PO SCH (08:53)
[2017-05-24] MEDS: MULTIVITAMIN PO SCH (08:53)
[2017-05-24] MEDS: COREG PO SCH ×2 (08:53→18:01)
[2017-05-24] MEDS ORDERED: LOVENOX SUBCUT SCH (09:00)
[2017-05-24] MEDS ORDERED: VANCOMYCIN SUSP PO SCH (09:00)
[2017-05-24] MEDS: VANCOCIN PO SCH ×4 (10:52→20:40)
[2017-05-24] MEDS: DEXTROSE 5%-NS IV SOLUTION 1,000 ML IV SCH (13:19)
[2017-05-24 16:45] LABS: OCCULT BLOOD INTERNAL QC 2 INTERNAL QC VALID; OCCULT BLOOD INTERNAL QC 3 INTERNAL QC VALID; OCCULT BLOOD SAMPLE 2 NO SPECIMEN RECEIVED (NEGATIVE); OCCULT BLOOD SAMPLE 3 NO SPECIMEN RECEIVED (NEGATIVE)
[2017-05-24] MEDS: ZOCOR PO SCH (20:40)
[2017-05-24] MEDS: NON-FORMULARY MEDICATION (Melatonin [Melatonin] 10 MG) PO SCH (20:41)
[2017-05-25] MEDS: DEXTROSE 5%-NS IV SOLUTION 1,000 ML IV SCH ×2 (02:22→16:05)
[2017-05-25] MEDS: FLAGYL 500 MG/100 ML 500 MG in PREMIX 100 ML NS 1 BAG IV SCH ×3 (04:27→20:53)
[2017-05-25 04:53] LABS: BASOPHILS # (AUTO) 0.1 K/uL (0-0.2); BASOPHILS % (AUTO) 1.7 % (0.0-3.0); EOSINOPHILS # (AUTO) 0.4 K/ul (0.0-0.7); EOSINOPHILS % (AUTO) 5.1 % (0.0-7.0); HEMATOCRIT 48.3 % (42.0-52.0); HEMOGLOBIN 15.4 g/dl (14.0-18.0); IMMATURE GRANULOCYTE % (AUTO) 0.4 % (0.0-5.0); LYMPHOCYTES # (AUTO) 1.4 K/uL (0.60-3.4); LYMPHOCYTES % (AUTO) 20.3 (10.0-50.0); MEAN CORPUSCULAR HEMOGLOBIN 32.4 pg (27.0-31.0); MEAN CORPUSCULAR HGB CONC 31.9 (31.8-35.4); MEAN CORPUSCULAR VOLUME 101.7 fl (80.0-94.0); MONOCYTES # (AUTO) 0.9 K/uL (0.4-2.0); MONOCYTES % (AUTO) 12.7 (0-10); NEUTROPHILS # (AUTO) 4.2 K/ul (2.0-6.9); NEUTROPHILS % (AUTO) 59.8; PLATELET COUNT 100 10^3/uL (140-440); RED BLOOD COUNT 4.75 10^6/ul (4.70-6.10); WHITE BLOOD COUNT 7.09 K/ul (4.2-10.2)
[2017-05-25 05:06] LABS: ANION GAP 15.3; BUN/CREATININE RATIO 14.1; CALCIUM 8.4 mg/dL (8.2-10.2); CREATININE 0.78 mg/dL (0.60-1.10); POTASSIUM 4.3 mmol/L (3.5-5.1)
[2017-05-25] MEDS: ASPIRIN CHEWABLE PO SCH (08:37)
[2017-05-25] MEDS: DEPAKOTE PO SCH ×2 (08:38→20:53)
[2017-05-25] MEDS: COREG PO SCH ×2 (08:38→16:43)
[2017-05-25] MEDS: VANCOCIN PO SCH ×4 (08:38→20:53)
[2017-05-25] MEDS: MULTIVITAMIN PO SCH (08:38)
--- NOTE | 2017-05-25 09:56 | PN ---
DATE OF VISIT: 05/24/17 SUBJECTIVE: The patient is alert and has not had any vomiting or diarrhea. The patient denies any abdominal pain. LUNGS: Clear to auscultation in both sides, slightly diminished HEART: Normal sinus rhythm. ABDOMEN: No remarkable tenderness The patient is cheerful as usual. This patient had a colitis based upon a CAT scan of the abdomen and pelvis beginning on the descending colon and also the sigmoid. Question if it is inflammatory or ischemic. I did talk to his daughter Cely and I did tell her that maybe he needed a colonoscopy to decided this problem. She told me that if it is not absolutely necessary then he does not want to go through that procedure. I did tell Cely that I treated him for the colitis with antibiotics and see if the problem with improve. The patient's diet will be advanced to full liquid and see what happens. If the patient doesn' t have any vomiting or diarrhea tomorrow that he will discharged. I don't see the colitis could cause the vomiting. This patient may have had some food adverse reaction since the vomiting developed soon after meals yesterday between 12:30 and 1:00pm. LUCIA
--- NOTE | 2017-05-25 10:43 | PN ---
DATE OF VISIT: 05/24/17 SUBJECTIVE: Sitter during the day is going home and he told me that Mr. Chávez had three bowel movement and blood is both of the three bowel movement. Stool was sort of soft and liquid partly. It is no pure blood. This patient may have ischemia colitis. I had talked to the daughter Cely earlier with regards to maybe having a colonoscopy and she mentioned that unless it is extremely necessary that maybe colonoscopy should be shelved at this time. The patient at that time had no bloody stool that I knew of. I will try to get into touch with the Daughter Cely and discuss the case and maybe transfer the patient to [place] for further care and also sigmoidoscopy if not a full colonoscopy. The hgb today early in the morning was 14.3, 42.8 hct slightly lower then yesterday 15.9 and 47.2. This is probably from the lesion. There was no signs of any bleeding then. MTDD
[2017-05-25] MEDS: NON-FORMULARY MEDICATION (Melatonin [Melatonin] 10 MG) PO SCH (20:53)
[2017-05-25] MEDS: ZOCOR PO SCH (20:53)
[2017-05-26 04:44] LABS: BASOPHILS # (AUTO) 0.1 K/uL (0-0.2); BASOPHILS % (AUTO) 1.2 % (0.0-3.0); EOSINOPHILS # (AUTO) 0.5 K/ul (0.0-0.7); EOSINOPHILS % (AUTO) 6.1 % (0.0-7.0); HEMATOCRIT 44.3 % (42.0-52.0); HEMOGLOBIN 14.6 g/dl (14.0-18.0); IMMATURE GRANULOCYTE % (AUTO) 0.4 % (0.0-5.0); LYMPHOCYTES # (AUTO) 1.4 K/uL (0.60-3.4); LYMPHOCYTES % (AUTO) 19.2 (10.0-50.0); MEAN CORPUSCULAR HEMOGLOBIN 32.1 pg (27.0-31.0); MEAN CORPUSCULAR VOLUME 97.4 fl (80.0-94.0); MONOCYTES # (AUTO) 1.1 K/uL (0.4-2.0); NEUTROPHILS # (AUTO) 4.4 K/ul (2.0-6.9); NEUTROPHILS % (AUTO) 58.1; PLATELET COUNT 163 10^3/uL (140-440); RED BLOOD COUNT 4.55 10^6/ul (4.70-6.10); WHITE BLOOD COUNT 7.51 K/ul (4.2-10.2)
[2017-05-26] MEDS: FLAGYL 500 MG/100 ML 500 MG in PREMIX 100 ML NS 1 BAG IV SCH ×3 (04:48→21:59)
[2017-05-26 05:06] LABS: ANION GAP 14.1; BUN/CREATININE RATIO 14.89; CALCIUM 8.5 mg/dL (8.2-10.2); CREATININE 0.94 mg/dL (0.60-1.10); POTASSIUM 4.1 mmol/L (3.5-5.1)
[2017-05-26] MEDS: DEXTROSE 5%-NS IV SOLUTION 1,000 ML IV SCH (09:43)
[2017-05-26] MEDS: ASPIRIN CHEWABLE PO SCH (10:17)
[2017-05-26] MEDS: MULTIVITAMIN PO SCH (10:17)
[2017-05-26] MEDS: DEPAKOTE PO SCH ×2 (10:17→21:58)
[2017-05-26] MEDS: VANCOCIN PO SCH ×4 (10:17→21:59)
[2017-05-26] MEDS: COREG PO SCH ×2 (10:17→16:30)
[2017-05-26] MEDS: ZOCOR PO SCH (21:59)
[2017-05-26] MEDS: NON-FORMULARY MEDICATION (Melatonin [Melatonin] 10 MG) PO SCH (22:00)
[2017-05-27] MEDS: DEXTROSE 5%-NS IV SOLUTION 1,000 ML IV SCH ×3 (02:15→16:56)
[2017-05-27] MEDS: FLAGYL 500 MG/100 ML 500 MG in PREMIX 100 ML NS 1 BAG IV SCH ×3 (05:15→20:34)
[2017-05-27 05:23] LABS: BASOPHILS # (AUTO) 0.1 K/uL (0-0.2); BASOPHILS % (AUTO) 1.3 % (0.0-3.0); EOSINOPHILS # (AUTO) 0.5 K/ul (0.0-0.7); EOSINOPHILS % (AUTO) 6.6 % (0.0-7.0); HEMATOCRIT 43.5 % (42.0-52.0); HEMOGLOBIN 14.4 g/dl (14.0-18.0); IMMATURE GRANULOCYTE % (AUTO) 0.6 % (0.0-5.0); LYMPHOCYTES # (AUTO) 1.5 K/uL (0.60-3.4); LYMPHOCYTES % (AUTO) 21.7 (10.0-50.0); MEAN CORPUSCULAR HEMOGLOBIN 32.2 pg (27.0-31.0); MEAN CORPUSCULAR HGB CONC 33.1 (31.8-35.4); MEAN CORPUSCULAR VOLUME 97.3 fl (80.0-94.0); MONOCYTES # (AUTO) 1.1 K/uL (0.4-2.0); MONOCYTES % (AUTO) 15.5 (0-10); NEUTROPHILS # (AUTO) 3.8 K/ul (2.0-6.9); NEUTROPHILS % (AUTO) 54.3; PLATELET COUNT 172 10^3/uL (140-440); RED BLOOD COUNT 4.47 10^6/ul (4.70-6.10); WHITE BLOOD COUNT 7.02 K/ul (4.2-10.2)
[2017-05-27 05:47] LABS: BUN/CREATININE RATIO 16.47; CALCIUM 8.1 mg/dL (8.2-10.2); CREATININE 0.85 mg/dL (0.60-1.10)
[2017-05-27] MEDS: ASPIRIN CHEWABLE PO SCH (08:34)
[2017-05-27] MEDS: DEPAKOTE PO SCH ×2 (08:35→20:35)
[2017-05-27] MEDS: COREG PO SCH ×2 (08:35→17:25)
[2017-05-27] MEDS: MULTIVITAMIN PO SCH (08:35)
[2017-05-27] MEDS: VANCOCIN PO SCH ×4 (08:36→20:35)
[2017-05-27] MEDS: NON-FORMULARY MEDICATION (Melatonin [Melatonin] 10 MG) PO SCH (20:35)
[2017-05-27] MEDS: ZOCOR PO SCH (20:35)
[2017-05-28] MEDS: FLAGYL 500 MG/100 ML 500 MG in PREMIX 100 ML NS 1 BAG IV SCH (04:29)
[2017-05-28 05:19] LABS: BASOPHILS # (AUTO) 0.1 K/uL (0-0.2); BASOPHILS % (AUTO) 1.6 % (0.0-3.0); EOSINOPHILS # (AUTO) 0.6 K/ul (0.0-0.7); HEMATOCRIT 47.8 % (42.0-52.0); HEMOGLOBIN 15.7 g/dl (14.0-18.0); IMMATURE GRANULOCYTE % (AUTO) 0.7 % (0.0-5.0); LYMPHOCYTES # (AUTO) 1.4 K/uL (0.60-3.4); MEAN CORPUSCULAR HEMOGLOBIN 31.8 pg (27.0-31.0); MEAN CORPUSCULAR HGB CONC 32.8 (31.8-35.4); MONOCYTES % (AUTO) 12.6 (0-10); NEUTROPHILS % (AUTO) 61.1; PLATELET COUNT 183 10^3/uL (140-440); RED BLOOD COUNT 4.93 10^6/ul (4.70-6.10); WHITE BLOOD COUNT 8.19 K/ul (4.2-10.2)
[2017-05-28 05:40] LABS: BUN/CREATININE RATIO 12.79; CALCIUM 8.3 mg/dL (8.2-10.2); CREATININE 0.86 mg/dL (0.60-1.10)
[2017-05-28] MEDS: DEPAKOTE PO SCH ×2 (09:07→20:43)
[2017-05-28] MEDS: COREG PO SCH ×2 (09:07→16:58)
[2017-05-28] MEDS: ASPIRIN CHEWABLE PO SCH (09:07)
[2017-05-28] MEDS: MULTIVITAMIN PO SCH (09:08)
[2017-05-28] MEDS: VANCOCIN PO SCH (09:08)
[2017-05-28] MEDS: FLAGYL PO SCH ×2 (13:15→20:43)
[2017-05-28] MEDS ORDERED: LASIX IM STA (18:45)
[2017-05-28] MEDS ORDERED: LASIX IVP STA (18:45)
[2017-05-28] MEDS: NON-FORMULARY MEDICATION (Melatonin [Melatonin] 10 MG) PO SCH (20:43)
[2017-05-28] MEDS: ZOCOR PO SCH (20:43)
[2017-05-29] MEDS: FLAGYL PO SCH ×3 (05:13→20:27)
[2017-05-29 05:41] LABS: BASOPHILS # (AUTO) 0.1 K/uL (0-0.2); BASOPHILS % (AUTO) 1.6 % (0.0-3.0); EOSINOPHILS # (AUTO) 0.6 K/ul (0.0-0.7); EOSINOPHILS % (AUTO) 7.2 % (0.0-7.0); HEMATOCRIT 46.1 % (42.0-52.0); HEMOGLOBIN 15.7 g/dl (14.0-18.0); LYMPHOCYTES # (AUTO) 1.6 K/uL (0.60-3.4); LYMPHOCYTES % (AUTO) 21.1 (10.0-50.0); MEAN CORPUSCULAR HEMOGLOBIN 32.2 pg (27.0-31.0); MEAN CORPUSCULAR HGB CONC 34.1 (31.8-35.4); MEAN CORPUSCULAR VOLUME 94.5 fl (80.0-94.0); MONOCYTES # (AUTO) 1.1 K/uL (0.4-2.0); MONOCYTES % (AUTO) 14.2 (0-10); NEUTROPHILS # (AUTO) 4.2 K/ul (2.0-6.9); NEUTROPHILS % (AUTO) 54.9; PLATELET COUNT 185 10^3/uL (140-440); RED BLOOD COUNT 4.88 10^6/ul (4.70-6.10); WHITE BLOOD COUNT 7.67 K/ul (4.2-10.2)
[2017-05-29 05:57] LABS: ANION GAP 13.9; BUN/CREATININE RATIO 14.77; CALCIUM 8.8 mg/dL (8.2-10.2); CREATININE 0.88 mg/dL (0.60-1.10); POTASSIUM 3.9 mmol/L (3.5-5.1)
[2017-05-29] MEDS: ASPIRIN CHEWABLE PO SCH (08:46)
[2017-05-29] MEDS: COREG PO SCH ×2 (08:47→16:47)
[2017-05-29] MEDS: MULTIVITAMIN PO SCH (08:47)
[2017-05-29] MEDS: DEPAKOTE PO SCH ×2 (08:47→20:27)
--- NOTE | 2017-05-29 14:31 | US ---
EXAM: Ultrasound venous Doppler left upper extremity HISTORY: Redness and swelling, and the infiltrate COMPARISON: None TECHNIQUE: Venous Doppler of the left upper extremity veins was performed. FINDINGS: There is normal color flow and compression of the left jugular, subclavian, axillary, bra chial, cephalic, basilic, radial, and ulnar vein without evidence of intraluminal thrombus. There is no reflux identified. IMPRESSION: No left upper extremity deep venous thrombus.
[2017-05-29] MEDS: ZOCOR PO SCH (20:27)
[2017-05-29] MEDS: NON-FORMULARY MEDICATION (Melatonin [Melatonin] 10 MG) PO SCH (20:28)
[2017-05-29] MEDS ORDERED: DEMADEX PO SCH (21:00)
[2017-05-29] MEDS ORDERED: DEMADEX PO STA (22:51)
[2017-05-30] MEDS: FLAGYL PO SCH ×2 (05:13→12:41)
[2017-05-30] MEDS ORDERED: DEMADEX PO SCH (06:30)
[2017-05-30] MEDS: ASPIRIN CHEWABLE PO SCH (08:29)
[2017-05-30] MEDS: COREG PO SCH (08:29)
[2017-05-30] MEDS: MULTIVITAMIN PO SCH (08:30)
[2017-05-30] MEDS: DEPAKOTE PO SCH (08:30)
[2017-05-30 09:20] VITALS: TEMP 97.9
[2017-05-30 13:32] VITALS: BP 136/64
--- NOTE | 2017-06-01 14:54 | HP ---
CHIEF COMPLAINT: Vomiting and diarrhea. SOURCE OF HISTORY: Sitter. HISTORY OF PRESENT ILLNESS: The patient, after lunch between 12:30 and 1:00 p.m. , developed diarrhea, several times continuous with vomiting. The patient was not able to retain any solids or liquids after that. The patient was then brought to the emergency room and after the work-up and examination was subsequently admitted with the diagnosis of acute gastroenteritis. The patient in the emergency room had a chest x-ray showing a trace of atelectasis in the right, but no acute cardiopulmonary findings otherwise. CT scan of the abdomen and pelvis 05/23/2017 showed mild to moderate distal colitis considered infectious or ischemic involving the lower descending colon, sigmoid and rectosigmoid. No ascites and no bowel obstruction. Moderately severe atherosclerotic disease. IVC filter. Left nephrolithiasis and small right pleural effusion. CBC showed moderate leukocytosis at 16,760. Elevated MCV and MCH. Elevated neutrophil. Slightly elevated potassium 5.7, chloride and sodium normal. BUN 25, creatinine 1.15, E GFR 60, Procalcitonin normal at 0.05. Blood sugar 117. Urinalysis 1+ ketones, otherwise normal. The patient was admitted to the hospital 12/24/2016 because of diarrhea and abdominal pain and the CT scan was unremarkable of the abdomen and pelvis without contrast. 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 Subdural hematoma evacuated. Type II Diabetes mellitus. 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 The patient now has no orientation to situation and place. He does recognize relatives. Atrial fibrillation with a pacemaker, prostatic carcinoma-operated, inguinal hernia repair, cardiac catheterization, coronary artery angioplasty with stent, history of pneumonia, degenerative joint disease plus disc disease. Bilateral venous insufficiency with dermal discoloration. FAMILY HISTORY: Mother had CVA and cerebral tumor, plus diabetes. Father had chronic obstructive lung disease. SOCIAL HISTORY: The patient is a and resides at Assisted [facility] in [place]. He does not smoke any cigarettes or use any tobacco products and no alcoholic beverages. He had been an active member of the [employer] until his snf. MEDICATIONS: Prior to this admission Simvastatin 40 mg daily Aspirin 81 mg daily Multivitamin one cap daily Depakote 250 mg twice a day to be increased to three times a day Carvedilol 3.125 twice a day Melatonin 10 mg at bedtime ALLERGIES: Codeine. REVIEW OF SYSTEMS: CONSTITUTIONAL: The patient with no fever and no chills and no significant fatigue. GEOSPATIAL IMAGERY INTELLIGENCE ANALYST: The patient is alert, but not oriented to time, space and situation. He still does recognize relatives. VISUAL: Difficult to illicit symptoms. The patient sometimes does not answer correctly. He does follow some verbal commands. GASTROINTESTINAL: The patient has been noted to have continuous diarrhea since lunch time and presented to the emergency room at 7 p.m. with vomiting, but no fever. He also has no abdominal pain. GENITOURINARY: The patient is incontinent of urine. He does have some diaper type contraption. The rest of the symptoms are difficult to review. PHYSICAL EXAMINATION: GENERAL: 87 year old male was admitted to the hospital because of diarrhea and vomiting with no abdominal pain of sudden onset. The patient had moderate leukocytosis on admission at 16,000 plus. Potassium slightly higher at 5.7. The patient is alert and smiles at times, but does not answer questions. He does follow some verbal commands. He is not oriented to time and space, as well as situation. HEAD: Unremarkable, except for the rounded hole in the anterior parietal near the midline from the evacuating of the subdural hematoma. FACE: Symmetrical and equal with no facial weakness. No remarkable tenderness to palpation under pressure of the frontal or maxillary sinus areas. EYES: Pupils equal/reactive to light. Conjunctivae slightly pale. Sclerae not icteric. MOUTH: Unremarkable. THROAT: No inflammation, tumors or exudate. NECK: No masses. No bruit. No tenderness. No rigidity. CHEST: Essentially symmetrical and equal with good expansion. No remarkable tenderness to palpation. LUNGS: Breath sounds are diminished in both sides with no rales and wheezing. HEART: Audible and regular at times when followed by continous irregular beats probably from atrial fibrillation. This patient has a pacemaker in the left upper anterior chest. The patient had been on Aspirin only. This patient had spontaneous subdural hematoma and was evacuated. ABDOMEN: Protuberant and soft with no remarkable tenderness. No guarding. Bowel sounds are active. No masses palpable. RECTAL: The anal sphincter is weak. Stool was brownish in color, but no obvious blood. LOWER EXTREMITIES: Essentially symmetrical and equal with some edema with discoloration secondary to venous insufficiency. Pedal pulse absent. UPPER EXTREMITIES: Symmetrical and equal. ASSESSMENT: 1. GASTROENTERITIS, VIRAL VERSUS BACTERIAL PLAN: 1. Stool examinations. 2. Electrolyte replacement. MTDD
--- NOTE | 2017-06-01 15:01 | PN ---
DATE OF VISIT: 05/27/17 The patient is alert and responsive, but not oriented. He does follow verbal commands. The Electronics Tech of the hospital had discussed medications with me with regards to Mr. Chávez. I did tell her that the patient has colitis effecting the descending colon, as well as the sigmoid. The clostridium difficile was negative. She felt that maybe the Vancomycin should be discontinued. She also felt that the Flagyl should probably be given orally. I did tell her that I would like to give the Flagyl another day IV and leave the Vancomycin capsule until the next day. The patient does have some edematous left upper arm, probably secondary to where the IV had been infiltrated. This should be elevated. Rectal exam showed no blood and the rectal sphincter is slightly weak. MTDD
--- NOTE | 2017-06-01 15:06 | PN ---
DATE OF VISIT: 05/28/17 The patient is alert and responsive and does follow some verbal commands, but not oriented. He is not dyspneic, nor tachypneic. The patient does have some edema of the legs, as well as the extremities, more so on the left upper extremity, which is probably secondary to the IV. This patient will be given IV Lasix 40 mg today, however access was difficult and it was converted to IM. We will try to weigh him today, as well as tomorrow. The left arm should be elevated on three pillows. VITAL SIGNS: At 5:27 p.m. showed a temperature of 97.9, pulse 78, blood pressure 138/76, respiratory rate 16, oxygen saturation 98 at room air. LUNGS: Has occasional rales at both bases, but no wheezing and breath sounds are also diminished. HEART: Normal sinus rhythm. MTDD
--- NOTE | 2017-06-01 15:14 | PN ---
DATE OF VISIT: 05/29/17 The patient is alert and responsive and does follow verbal commands. The patient's appetite is good and he was eating most of his lunch. He had not had any blood in his stool and no loose bowel movements. He denied any abdominal pain. The swelling in the left hand from the IV has decreased. I had advised the nurse to elevate the hand on two to three pillows to reduce the swelling. The patient was given 40 mg of Lasix IM last night. I did talk to Nicole Olson , his daughter, and advised her that I would plan on sending him home back to the Assisted Living tomorrow. The lady that is sitting him through the day should be able to prop the arm up again once it is down. She should use two to three pillows. Ms. Olson was agreeable and also discussed about the colonoscopy. She doesn't feel that we should do a colonoscopy unless it is mandatory. At the end, however, she doesn't believe that she would subject him to a colonoscopy. This patient had colitis involving the descending colon and the sigmoid, maybe ischemic. This patient's hemoglobin and hematocrit had stayed stable since the second day of hospitalization. We will give and oral Torsemide tonight and we will measure a BNP tomorrow. This patient would probably be continued on Flagyl for another five days at 250 mg three times a day. MTDD
--- NOTE | 2017-06-07 12:22 | DS ---
PATIENT IDENTIFICATION: 87 year old male was seen at the emergency room because of diarrhea, plus vomiting with sudden onset soon after lunch. The patient did not complain of any abdominal pain. HOSPITAL COURSE: The initial x-rays of the abdomen and pelvis showed thickening mucosa of the descending colon, sigmoid and rectosigmoid area. Interpreted as mild to moderate distal colitis involving the descending colon, sigmoid and rectosigmoid, probably infectious versus ischemic. Chest x-ray was unremarkable. CBC showed moderate leukocytosis 16,000 plus WBC. The patient's initial chemistry showed slightly elevated potassium 5.7. Subsequent chemistry showed normal potassium levels. The patient remained alert and responsive, but not oriented. He still recognizes family members. LUNGS: Clear. HEART: Audible and irregular at times. ABDOMEN: No remarkable tenderness. Bowel sounds are present. RECTAL: No tumor, no blood. The patient on the second hospital day had three bowel movements. Erica did tell me that the stool was bloody, but not all blood. The patient was placed on Vancomycin oral 250 mg capsule four times a day and Flagyl 500 mg IV every 8 hours. The Hemoccult was positive for blood. The patient's appetite since admission remained good and consumes 100% of the meals. The patient had no significant diarrhea since admission. Medication was continued in spite of Clostridium negative test. The Family Readiness Support Assistant did talk to me with regards to changing medications. I did tell her about the colitis that this individual has. I also did advise the Family Readiness Support Assistant that the relatives at this time does not desire to have any colonoscopy to confirm the diagnosis whether it is ischemia or infectious. Repeat rectal examination after the episode of bleeding a few days after that showed no blood in the stool, grossly. The patient's appetite remained good. The Vancomycin oral was discontinued and the IV Flagyl was also discontinued. Flagyl was given 250 mg three times a day and will be continued for the next few days after discharge. The patient did have swelling of the left upper extremity, more than the right. The area was exuding serum. I had asked the nurses to elevate the hand and the patient was given Lasix intramuscularly since the IV access was difficult. The patient on the following day, 05/29/2017, showed marked improvement of the swelling of the left forearm. There is a raw surface secondary to the band aid that was removed by the nurse. The patient's temperature had remained normal throughout the hospital stay and the blood pressure, including its fluctuations , were acceptable and close to normal. Respiratory rate remained normal within 16 to 20. The oxygen saturation was fluctuating as high as 99 on room air and as low as 92. The patient on discharge 05/30/2017 is alert and cheerful. He told me that it was good for me to stop by. His color is good. He is not dyspneic, nor tachypneic. He just had lunch. LUNGS: Unremarkable. Breath sounds are diminished, but no rales or wheezing. HEART: Audible, mostly regular and followed by a continued irregularity and reverted back to mostly regular. ABDOMEN: Nontender. LOWER EXTREMITIES: There is no tenderness in the calf muscles. The pedal pulses are not palpable. The sitter was questioned about the bluish discoloration of the leg and foot. I told her that this a result the leg being dependent. I lifted the leg above his heart to show and demonstrate to her what I mean. I had talked to his daughter yesterday, Nicole, with regards to possible discharge today. A Bactroban will be applied to the area on the left forearm and covered with a Telfa and Coban. I preferred Coban since it does not stick very hard to the skin. FINAL DIAGNOSES: 1. ACUTE GASTROENTERITIS, RESOLVED 2. MILD TO MODERATE COLITIS INVOLVING THE DESCENDING, SIGMOID AND RECTOSIGMOID AREA. 3. GI BLEED, MILD, SECONDARY TO #2. 4. HISTORY OF ATRIAL FIBRILLATION WITH A PACEMAKER AND MEDICATION 5. HISTORY OF SPONTANEOUS SUBDURAL HEMATOMA, EVACUATED 6. SENILE DEMENTIA, ADVANCED 7. HISTORY OF PROSTATIC CARCINOMA, OPERATED 8. HISTORY OF DIABETES MELLITUS TYPE II 9. HISTORY OF URINARY INCONTINENCE AND FREQUENCY 10. SWELLING LEFT UPPER EXTREMITY SECONDARY TO IV INFILTRATION. NO DVT OF DOPPLER STUDIES. PROGNOSIS: Guarded to poor. MTDD
== END 2017-05-30 15:05 | disposition home or self-care (01) | DRG 392 ==
LOC: ED 18:51 → MEDSURG B 21:32
PROVIDERS: ADMIT General Practice; ATTEND General Practice
DX: K52.9 Noninfective gastroenteritis and colitis, unspecified (principal); K92.1 Melena; K92.2 Gastrointestinal hemorrhage, unspecified; E86.0 Dehydration; I48.91 Unspecified atrial fibrillation; F03.90 Unspecified dementia, unspecified severity, without behavioral disturbance, psychotic disturbance, mood disturbance, and anxiety; E11.9 Type 2 diabetes mellitus without complications; R22.32 Localized swelling, mass and lump, left upper limb; T80.89XA Other complications following infusion, transfusion and therapeutic injection, initial encounter; Y92.239 Unspecified place in hospital as the place of occurrence of the external cause; Z95.0 Presence of cardiac pacemaker; Z95.828 Presence of other vascular implants and grafts; Z86.79 Personal history of other diseases of the circulatory system; Z87.448 Personal history of other diseases of urinary system; Z79.899 Other long term (current) drug therapy
CPT/HCPCS: 36415; 80048; 80053; 81001; 82150; 82272; 82607; 83090; 83690; 83880; 84145; 84443; 85025; 86677; 87015; 87040; 87045; 87081; 87493; 87899; 93005; 93010; 96360; 99284

== ENCOUNTER 2017-06-03 11:05 | Emergency (ER) ==
[2017-06-03 11:12] VITALS: BP 122/71; TEMP 98.7; BMI 25.1
--- NOTE | 2017-06-03 11:36 | ED.PDOC ---
General ED Provider: Dr. MADY MERIDA JR Chief Complaint: Wound Check Stated Complaint: discharged from hospital on 05/30/17--was admitted for "colon infection" and on iv therapy--had iv in place to left arm and infiltrated while in hosp--arm has been swollen and seem to be getting worse[ End ]since 05/30/17 98.7 85 20 95% 122/71 02/03 site has been weeping--pt poor historian due to dementia--family states has had MRSA in past. Brain bleed 3.5 years ago- treated at [facility], Filter for blood clotts. Pacemaker. Prostate Cancer. Angioplasty 1999. Dementia. ca cva chol cad. left arm swollen. [ End ]no loose stools worsening of swelilng and pain after IV infiltration Time Seen by Physician: 11:30 Mode of Arrival: Walk-In Information Source: Patient, Family Exam Limitations: Dementia [facility] Nursing and Triage Documentation Reviewed and Agree: Yes Review of Systems - Review Of Systems Constitutional: Reports: No symptoms Eyes: Reports: No symptoms Ears, Nose, Mouth, Throat: Reports: No symptoms Respiratory: Reports: No symptoms Cardiac: Reports: No symptoms GI: Reports: No symptoms : Reports: No symptoms Musculoskeletal: Reports: No symptoms Skin: Reports: Lesions, Rash Neurological: Reports: Cognitive dysfunction Endocrine: Reports: No symptoms Hematologic/Lymphatic: Reports: No symptoms All Other Systems: Other Past Medical History - Past Medical History Previously Healthy: No (extended care) Endocrine: Reports: Dyslipidemia Cardiovascular: Reports: CAD Respiratory: Reports: None Hematological: Reports: None Gastrointestinal: Reports: Unknown Genitourinary: Reports: Other (Prostate) 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) Musculoskeletal: Reports: Unknown Cancer: Reports: Other (Prostate) - Surgical History General Surgical History: Reports: Pacemaker, Other (Angioplasty) - Family History Family History: Reports: Unknown - Social History Smoking Status: Never smoker Hx Substance Use: No Alcohol Screening: None Physical Exam - Physical Exam Appearance: Well-appearing, Thin Pain Distress: Moderate Neck: Supple Respiratory: Airway patent Skin: Warm, Dry, Normal color (mild patchy erythema left forearm with tweo open areas no currnet drainage- consistent with cellulitis) Neurological: Sensation intact, Motor intact, Alert, Disoriented Psychiatric: Affect appropriate, Mood appropriate Critical Care Note - Critical Care Note Total Time (mins): 0 Course - Course Vital Signs: Temp Pulse Resp BP Pulse Ox 06/03/17 11:08 98.7 F 85 20 122/71 95 Departure - Departure Time of Disposition: 11:34 Disposition: HOME SELF-CARE Discharge Problem: Cellulitis of arm, left Instructions: Cellulitis (ED) Condition: Good Pt referred to PMD for follow-up: Yes Additional Instructions: continue local care stop flagyl begin doxycycline(with food) expect rapid improvement with antibiotic if not resolving in 1-2 days stop Bactroban continue cleansing recheck PMD Monday return if fever over 101.0 if worse Prescriptions: Doxycycline Monohydrate [Monodox] 100 mg PO BID #20 capsule Allergies/Adverse Reactions: Allergies codeine Allergy (Verified 06/03/17 11:15) FLUSHING, ITCHING Home Medications: Ambulatory Orders Simvastatin 40 mg PO BEDTIME 07/25/14 Aspirin 81 mg PO DAILY 01/10/17 Carvedilol [Coreg] 3.125 mg PO BID 05/23/17 Divalproex Sodium [Depakote] 250 mg PO BID 05/23/17 Melatonin 10 mg PO BEDTIME 05/23/17 Multivitamin 1 cap PO DAILY 05/23/17 Metronidazole [Flagyl] 250 mg PO Q8HR #15 tablet 05/30/17 Doxycycline Monohydrate [Monodox] 100 mg PO BID #20 capsule 06/03/17
== END 2017-06-03 12:00 | disposition home or self-care (01) ==
LOC: ED 11:05
DX: L03.114 Cellulitis of left upper limb (principal); Z98.890 Other specified postprocedural states
CPT/HCPCS: 99282

== ENCOUNTER 2017-07-24 10:47 | Outpatient (CLI) ==
--- NOTE | 2017-07-24 13:22 | DI ---
EXAM: RIGHT KNEE. HISTORY: Right knee pain. FINDINGS: Right knee three-view. Compared to 02/05/2009. There is mild chondrocalcinosis which bishop s developed since previous exam. Mild medial and anterior compartment osteoarthritis has developed since previous exam. There is no joint effusion or fracture. Vascular calcifications are again not ed. IMPRESSION: Chondrocalcinosis and osteoarthritis have become noticeable since previous exam in 2008. Vascular calcifications.
[2017-07-24 13:26] LABS: BASOPHILS # (AUTO) 0.1 K/uL (0-0.2); BASOPHILS % (AUTO) 1.8 % (0.0-3.0); EOSINOPHILS # (AUTO) 0.3 K/ul (0.0-0.7); HEMATOCRIT 42.4 % (42.0-52.0); HEMOGLOBIN 14.5 g/dl (14.0-18.0); IMMATURE GRANULOCYTE % (AUTO) 0.5 % (0.0-5.0); LYMPHOCYTES # (AUTO) 1.1 K/uL (0.60-3.4); LYMPHOCYTES % (AUTO) 18.1 (10.0-50.0); MEAN CORPUSCULAR HEMOGLOBIN 32.9 pg (27.0-31.0); MEAN CORPUSCULAR HGB CONC 34.2 (31.8-35.4); MEAN CORPUSCULAR VOLUME 96.1 fl (80.0-94.0); MONOCYTES # (AUTO) 0.8 K/uL (0.4-2.0); MONOCYTES % (AUTO) 12.5 (0-10); NEUTROPHILS # (AUTO) 3.8 K/ul (2.0-6.9); NEUTROPHILS % (AUTO) 62.1; PLATELET COUNT 210 10^3/uL (140-440); RED BLOOD COUNT 4.41 10^6/ul (4.70-6.10); WHITE BLOOD COUNT 6.18 K/ul (4.2-10.2)
[2017-07-24 13:41] LABS: ALBUMIN 3.2 g/dL (3.4-5.0); ALBUMIN/GLOBULIN RATIO 1.07; ANION GAP 15.5; BILIRUBIN,TOTAL 1.18 mg/dL (0.00-1.20); BUN/CREATININE RATIO 19.16; CALCIUM 9.2 mg/dL (8.2-10.2); CREATININE 1.2 mg/dL (0.60-1.10); POTASSIUM 4.5 mmol/L (3.5-5.1); TOTAL PROTEIN 6.2 g/dL (5.8-8.1)
--- NOTE | 2017-07-24 16:20 | DI ---
EXAM: PA and lateral views of the chest HISTORY: Respiratory distress COMPARISON: None FINDINGS: The cardiomediastinal silhouette is unchanged with atherosclerotic disease of the aorta a nd single lead wire. There is flattening of the diaphragm with minimal blunting the costophrenic an gles. There is minimal ground-glass in the left lung base. There is no pneumothorax. There is no c onsolidation, nodule or mass. The osseous structures demonstrate no acute abnormality. IMPRESSION: 1. Minimal blunting the costophrenic angles with flattening of the diaphragm may represent small ef fusions versus pleural parenchymal fibrosis with changes consistent with obstructive pulmonary physi ology. 2. Stable cardiomegaly. 3. Mild ground-glass in the left lower lobe suggestive of atelectasis.
== END 2017-07-24 10:48 | disposition home or self-care (01) ==
LOC: RAD 10:47
PROVIDERS: ATTEND Nurse Practitioner Family
DX: R19.7 Diarrhea, unspecified (principal); M25.561 Pain in right knee; J98.8 Other specified respiratory disorders
CPT/HCPCS: 36415; 80053; 82150; 83690; 85025

== ENCOUNTER 2017-09-04 08:38 | Inpatient (IN) | payer OTHER ==
--- NOTE | 2017-09-04 09:36 | CT ---
EXAM: CT ABDOMEN AND PELVIS HISTORY: Pain and diarrhea TECHNIQUE: CT abdomen and pelvis without intravenous contrast. Images were reconstructed using 5 mm section thickness. Reformations were prepared. COMPARISON: 05/23/2017 FINDINGS: Diagnostic limitations exist without including contrast enhanced images. No definite focal hepatic o r splenic lesions. Slight increased density in the dependent portion of the gallbladder. Pancreas a nd adrenal glands within normal limits. There is stable nonspecific bilateral perinephric fat strand ing. A few renal calcifications which may be vascular in nature. Cannot exclude nephrolithiasis. N o hydronephrosis or evidence of ureteral obstruction. Moderately severe vascular calcifications of t he aorta and other larger arteries. No aneurysmal caliber of the aorta. IVC filter is again noted. There is no gastric distension. No appendix is identified. General bowel gas pattern is within normal limits. General appearance of the bowel is within normal limits other than the rectosigmoid which h as mucosal thickening and fluid consistency stool. There is mild fat stranding around this portion o f the large bowel. No excessive fecal retention. Urinary bladder is normal. There is no evidence o f prostate enlargement. No ascites or intra-abdominal abscess. Stable fatty umbilical hernia likely of no current clinical significance. This measures about 1.8 cm axial dimension. Trace right pleural effusion. Prominent heart size. Subtle pulmonary vascular co ngestion. Mild right base atelectasis. No pneumoperitoneum. IMPRESSION: 1. Findings suggestive of at least mild colitis at the level of the rectosigmoid. Consider infectio us or inflammatory etiologies. No intraperitoneal abscess, ascites or free air. No bowel obstructio n. 2. Moderately severe vascular calcifications consistent with atherosclerosis and / or diabetic angio aisha. 3. Suggestion of higher density in the dependent portion of the gallbladder could represent sludge o r dense bile from other etiology. Stones not completely excluded although less likely. No evidence of acute gallbladder inflammation. 4. Nonspecific stable perinephric fat stranding bilaterally. 5. IVC filter. 6. Trace right pleural effusion with mild adjacent atelectasis or less likely pneumonia.
[2017-09-04 09:37] LABS: BASOPHILS # (AUTO) 0.1 K/uL (0-0.2); BASOPHILS % (AUTO) 1.1 % (0.0-3.0); EOSINOPHILS # (AUTO) 0.3 K/ul (0.0-0.7); EOSINOPHILS % (AUTO) 5.1 % (0.0-7.0); HEMATOCRIT 44.2 % (42.0-52.0); HEMOGLOBIN 15.1 g/dl (14.0-18.0); IMMATURE GRANULOCYTE % (AUTO) 0.3 % (0.0-5.0); LYMPHOCYTES # (AUTO) 1.3 K/uL (0.60-3.4); LYMPHOCYTES % (AUTO) 19.8 (10.0-50.0); MEAN CORPUSCULAR HEMOGLOBIN 32.4 pg (27.0-31.0); MEAN CORPUSCULAR HGB CONC 34.2 (31.8-35.4); MEAN CORPUSCULAR VOLUME 94.8 fl (80.0-94.0); MONOCYTES # (AUTO) 0.8 K/uL (0.4-2.0); MONOCYTES % (AUTO) 12.1 (0-10); NEUTROPHILS # (AUTO) 4.1 K/ul (2.0-6.9); NEUTROPHILS % (AUTO) 61.6; PLATELET COUNT 193 10^3/uL (140-440); RED BLOOD COUNT 4.66 10^6/ul (4.70-6.10); WHITE BLOOD COUNT 6.63 K/ul (4.2-10.2)
[2017-09-04 09:54] LABS: ALBUMIN 3.2 g/dL (3.4-5.0); ALBUMIN/GLOBULIN RATIO 1.07; ANION GAP 12.1; BILIRUBIN,TOTAL 2.33 mg/dL (0.00-1.20); BUN/CREATININE RATIO 26.8; CALCIUM 9.1 mg/dL (8.2-10.2); CREATININE 0.97 mg/dL (0.60-1.10); POTASSIUM 4.1 mmol/L (3.5-5.1); TOTAL PROTEIN 6.2 g/dL (5.8-8.1)
--- NOTE | 2017-09-04 10:19 | ED.PDOC ---
General ED Provider: Dr. ARIS ARANGO Chief Complaint: Diarrhea Stated Complaint: diarrhea Time Seen by Physician: 09:00 Mode of Arrival: Ambulance Information Source: Patient Exam Limitations: No limitations [facility] and Triage Documentation Reviewed and Agree: Yes GI Complaint Exam - Vomiting/Diarrhea Complaint/Exam Onset/Duration: 1 day Symptoms Are: Resolved Episodes of Vomiting over last 24 Hours: 0 Episodes of Diarrhea Over Last 24 Hours: 5 Initial Severity: Moderate Current Severity: Mild Character of Vomiting: Reports: Non-bilious Character of Diarrhea: Reports: Watery Aggravating: Reports: None Alleviating: Reports: None Associated Signs and Symptoms: Denies: Dizziness, Light-headedness, Melena, Hematemesis, Fever, Abdominal pain, Cramping Related History: Reports: Similar episode Non-GI Risk Factors: Reports: None Surgical Obstruction Risk Factors: Reports: None Related Surgical History: Reports: None Abdominal Findings: Present: None Review of Systems - Review Of Systems Constitutional: Reports: No symptoms Eyes: Reports: No symptoms Ears, Nose, Mouth, Throat: Reports: No symptoms Respiratory: Reports: No symptoms Cardiac: Reports: No symptoms GI: Reports: Diarrhea : Reports: No symptoms Musculoskeletal: Reports: No symptoms Skin: Reports: No symptoms Neurological: Reports: No symptoms Endocrine: Reports: No symptoms Hematologic/Lymphatic: Reports: No symptoms All Other Systems: Reviewed and Negative Past Medical History - Past Medical History Previously Healthy: No (extended care) Endocrine: Reports: Dyslipidemia Cardiovascular: Reports: CAD Respiratory: Reports: None Hematological: Reports: None Gastrointestinal: Reports: Unknown Genitourinary: Reports: Other (Prostate) 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) Musculoskeletal: Reports: Unknown Cancer: Reports: Other (Prostate) - Surgical History General Surgical History: Reports: Pacemaker, Other (Angioplasty) - Family History Family History: Reports: Unknown - Social History Smoking Status: Never smoker Hx Substance Use: No Alcohol Screening: None Physical Exam - Physical Exam Appearance: Well-appearing, No pain distress, Well-nourished Eyes: DOYLE, EOMI, Conjunctiva clear ENT: Ears normal, Nose normal, Dry mucosa Respiratory: Airway patent, Breath sounds clear, Breath sounds equal, Respirations nonlabored Cardiovascular: RRR, Pulses normal, No rub, No murmur GI/: Soft, Nontender, No masses, Bowel sounds normal, No Organomegaly Musculoskeletal: Normal strength, ROM intact, No edema, No calf tenderness Skin: Warm, Dry, Normal color Neurological: Sensation intact, Motor intact, Reflexes intact, Cranial nerves intact, Alert, Oriented Psychiatric: Affect appropriate, Mood appropriate Interpretation - Radiology Interpretation Radiology Interpretation By: Radiologist Radiology Results: No acute changes Physician Notification - Case Discussed Physician Notified: pmd Critical Care Note - Critical Care Note Total Time (mins): 0 Course - Course Hematology/Chemistry: 09/04/17 09:25 09/04/17 09:25 Orders, Labs, Meds: Lab Review 09/04/17 09/04/17 09:25 09:25 WBC 6.63 RBC 4.66 L Hgb 15.1 Hct 44.2 MCV 94.8 H MCH 32.4 H MCHC 34.2 RDW Coeff of Arpit 13.9 Plt Count 193 Immature Gran % (Auto) 0.3 Neut % (Auto) 61.6 Lymph % (Auto) 19.8 [place] % (Auto) 12.1 H Eos % (Auto) 5.1 Baso % (Auto) 1.1 Immature Gran # (Auto) 0.0 Neut # 4.1 Lymph # 1.3 [place] # 0.8 Eos # 0.3 Baso # 0.1 Sodium 140 Potassium 4.1 Chloride 106 Carbon Dioxide 26 Anion Gap 12.1 BUN 26 H Creatinine 0.97 Estimated GFR (MDRD) 73.00 BUN/Creatinine Ratio 26.80 Glucose 101 Calcium 9.1 Total Bilirubin 2.33 H AST 22 ALT 24 Alkaline Phosphatase 74 Total Protein 6.2 Albumin 3.2 L Globulin 3.0 Albumin/Globulin Ratio 1.07 Orders Category Date Time Status C-DIFF MONITORING (NURSING) BID CARE 09/04/17 08:58 Active CBC W/ AUTO DIFF Stat LAB 09/04/17 09:25 Completed COMPREHENSIVE METABOLIC PANEL Stat LAB 09/04/17 09:25 Completed c-diff [C. DIFFICILE] Routine LAB 09/04/17 08:[address] ABDOMEN/PELVIS WO CONTRAST Stat RADS 09/04/17 08:57 Completed Vital Signs: Temp Pulse Resp BP Pulse Ox 09/04/17 08:42 97.3 F L 74 16 139/90 96 Departure - Departure Time of Disposition: 10:18 Disposition: HOME SELF-CARE Discharge Problem: Diarrhea, Dehydration Instructions: Acute Diarrhea (ED) Condition: Good Pt referred to PMD for follow-up: Yes Additional Instructions: Please call your Family Physician as soon as possible to schedule a follow-up appointment. Allergies/Adverse Reactions: Allergies codeine Allergy (Unverified 06/09/17 14:24) FLUSHING, ITCHING Home Medications: Ambulatory Orders Aspirin 81 mg PO DAILY 01/10/17 Carvedilol [Coreg] 3.125 mg PO BID 05/23/17 Multivitamin 1 cap PO DAILY 05/23/17 Disposition Discussed With: Patient, Family
[2017-09-04] MEDS ORDERED: SODIUM CHLORIDE 1,000 ML IV SCH (11:00)
[2017-09-04 12:04] VITALS: BMI 27.3
[2017-09-04] MEDS: D5%-1/2NS-KCL 20 MEQ/L IV SOL 1,000 ML IV SCH (14:35)
[2017-09-04] MEDS: COREG PO SCH (17:00)
[2017-09-04 23:46] LABS: ADD URINE MICROSCOPIC NO; BILIRUBIN,URINE Negative (NEGATIVE); KETONES,URINE Negative (NEGATIVE); LEUKOCYTE ESTERASE ,URINE Negative (NEGATIVE); NITRITE,URINE Negative (NEGATIVE); PH,URINE 6.5 (5-9); PROTEIN,URINE Negative (NEGATIVE); URINE, BLOOD Negative (NEGATIVE)
[2017-09-05] MEDS: D5%-1/2NS-KCL 20 MEQ/L IV SOL 1,000 ML IV SCH ×2 (01:18→17:19)
[2017-09-05 05:09] LABS: BASOPHILS # (AUTO) 0.1 K/uL (0-0.2); BASOPHILS % (AUTO) 1.1 % (0.0-3.0); EOSINOPHILS # (AUTO) 0.7 K/ul (0.0-0.7); EOSINOPHILS % (AUTO) 9.1 % (0.0-7.0); HEMATOCRIT 44.9 % (42.0-52.0); HEMOGLOBIN 15.2 g/dl (14.0-18.0); IMMATURE GRANULOCYTE % (AUTO) 0.4 % (0.0-5.0); LYMPHOCYTES # (AUTO) 1.4 K/uL (0.60-3.4); LYMPHOCYTES % (AUTO) 19.2 (10.0-50.0); MEAN CORPUSCULAR HEMOGLOBIN 32.4 pg (27.0-31.0); MEAN CORPUSCULAR HGB CONC 33.9 (31.8-35.4); MEAN CORPUSCULAR VOLUME 95.7 fl (80.0-94.0); MONOCYTES % (AUTO) 13.2 (0-10); NEUTROPHILS # (AUTO) 4.2 K/ul (2.0-6.9); PLATELET COUNT 179 10^3/uL (140-440); RED BLOOD COUNT 4.69 10^6/ul (4.70-6.10)
[2017-09-05 05:26] LABS: ANION GAP 11.9; BILIRUBIN,TOTAL 2.26 mg/dL (0.00-1.20); BUN/CREATININE RATIO 18.27; CALCIUM 8.7 mg/dL (8.2-10.2); CREATININE 0.93 mg/dL (0.60-1.10); POTASSIUM 3.9 mmol/L (3.5-5.1)
[2017-09-05] MEDS: ASPIRIN CHEWABLE PO SCH (07:56)
[2017-09-05] MEDS: COREG PO SCH ×2 (07:56→17:17)
--- NOTE | 2017-09-05 13:36 | HP ---
CHIEF COMPLAINT: Loose stools and weakness. SOURCE OF HISTORY: nayan Ortega. The sitter was not an eye witness to the problem HISTORY OF PRESENT ILLNESS: The patient who resides at the [facility] with a sitter that works from 5: 00 in the morning till 7:00 in the evening. Shannon found that patient when she came in to have multiple deposits of fecal material from his bed to the bathroom and a total of 19 areas that had stool deposits. There is no account as to how many times he went to the bathroom. He could have deposited those either one or two trips to the bathroom. Shannon mentioned that he seemed to be weaker. He was then brought to the emergency room for evaluation. The patient had not had any vomiting with the loose stools. He also denied any abdominal pain when I asked him directly. After the workup the patient was noted to have an elevated BUN of 26, normal electrolytes and GFR of 73, slightly elevated total bilirubin 2.33, AST and ALT normal as well as alkaline phosphatase. The patient was admitted for observation with fluid replacement and see how he does. PAST PERSONAL HISTORY: The patient has a history of deep venous thrombosis with pulmonary emboli and inferior venacaval filter. The patient was admitted 05/23/17 because of vomiting and diarrhea and subdural hematoma evacuated, type 2 diabetes mellitus , senile dementia since 2008, atrial fibrillation with pacemaker, prostatic carcinoma operated, inguinal hernia repair, cardiac catheterization and coronary angioplasty plus stent, pneumonia, degenerative disc and joint disease and bilateral venous insufficiency with dermal discoloration of the lower leg. He has peripheral arterial disease all the tibial pulses are absent. FAMILY HISTORY: Mother had CVA and cerebral tumor plus diabetes mellitus. Father had chronic obstructive lung disease SOCIAL HISTORY: The patient is a and resides at the [facility]. He does not smoke any cigarettes or use any tobacco products and no alcoholic beverages. Previously active in the [employer] as well as [employer] in [facility]. MEDICATIONS: Aspirin 81mg tablet daily Multivitamin one daily Carvedilol 3.25mg twice a day Trazodone 50mg tablet 25mg Q PM The patient had not been sleeping at night and had been getting up and down from bed and had been walking according the sitter. The Trazodone may need to be increased. ALLERGIES: Codeine. REVIEW OF SYSTEMS: CONSTITUTIONAL: The patient is alert and does follow verbal commands but not oriented to place and situation. He does recognize his relatives. The rest of the Systems Review to difficult to assess except he denied any abdominal pain when I asked him. The patient had moderate Senile dementia. PHYSICAL EXAMINATION: GENERAL: We have an 87 year old male who is alert with movement of all extremity ambulatory. He does follow verbal commands. he is cooperative and not combative. VITAL SIGNS: Temperature 97.3, pulse 74, blood pressure 139/90, respiratory rate 16, oxygen saturation 96 at room air. He is 5'10" and 192 pounds 10.9 ounces. HEAD: Unremarkable FACE: Symmetrical and equal with no facial weakness and no significant tenderness palpation under pressure in the frontal maxillary sinus areas. EYES: Pupils equal/reactive to light. About 3mm in size. Conjunctivae not pale. Sclerae not icteric. MOUTH: unremarkable. THROAT: No inflammation, tumors or exudate. NECK: No masses. No bruit. No tenderness. No rigidity. CHEST: Essentially symmetrical and equal with good expansion. LUNGS: Breath sounds are heard in both sides. No rales or wheezing. HEART: Audible and regular with good tones. No murmurs. ABDOMEN: Protuberant, soft with no remarkable tenderness. No guarding. Bowel sounds are active. No masses palpable. EXTERNAL GENITALIA: Not examined RECTAL: Not performed at this time. This patient had rectal examination at this previous admission. LOWER EXTREMITIES: Essentially symmetrical and equal with darker discoloration on the lower third of the leg, right and left. The pedal pulses are absent UPPER EXTREMITIES: Symmetrical and equal ASSESSMENT: 1. History of loose bowel movement 2. Elevated BUN 3. Senile Dementia 4. History of deep venous thrombosis with pulmonary emboli with inferior venacaval filter 5. History of diabetes mellitus 6. History of atrial fibrillation with pacemaker 7. History of prostatic carcinoma, status post surgery 8. History if inguinal hernia repair 9. History of coronary artery disease, status post cardiac catheterization, angioplasty and stent 10.History of subdural hematoma, evacuated 11.History of degenerative disc disease 12.Bilateral venous insufficiency PROGNOSIS: Guarded to poor MTDD
--- NOTE | 2017-09-05 13:41 | PN ---
DATE OF VISIT: 09/04/17 SUBJECTIVE: The patient had not had any bowel movements since admission. He denied any abdominal pain. I did re-examine him about 10:00pm. LOWER EXTREMITIES: No pain but the lower 1/3 of both legs are darker in color secondary to the venous insufficiency and the pedal pulses are absent. RECTAL:This patient had a rectal examination last April/ May hospitalization. The family as I remembered did not want a coloscopy done. I would look into my records whether that was correct. If the patient is eating well and has no further bowel movement or if has which is loose but not diarrhea that he would be discharged most likely tomorrow. I ordered the urinalysis since the urine would probably tell me better with regards to the dehydration if he has. Although it may not be as useful if this was done right at the emergency room. This patient had received intervenous fluids. LUCIA
--- NOTE | 2017-09-05 15:42 | RS.OTINEVL ---
Subjective - Patient information Date of Evaluation: 09/05/17 Date of Arrival on Unit: 09/04/17 Admitted From:: Home Usual Living Arrangement: Alone Living Arrangement Comments: Pt lives at [facility]. Pt has 16 hours a day of caregivers. Pt uses a RW to ambulate. Pt requires setup for alot of his CG. Medical History: CVA/TIA, Arthritis Medical History Comments:: CVA, Pacemaker, Cardiac surgery, anxiety, behavioural problems at night. Surgical History Comments:: cardiac Subjective Information/ Patient Comments:: "I am left handed." "I [place] [address] - Level of function Prior to this admission, the patient could do the following:: Partially Dependent Ambulation Abilities prior to this admission: Pt has a CG 16 hours a day. Pt is setup for most of his ADLS. Current Level of Function: Independent Current Equipment Used at Home: shower chair, rolling walker, Pain Assessment - Pain Pain Score: 0 Interventions - Objective Patient Orientation: Person Current Interventions: IV's, Telemetry Observation: Pt is having to urinate often. Interventions - ROM Right Upper Extremity AROM: Slight limitation Left Upper Extremity AROM: Slight limitation - Strength Right Upper Extremity Strength: Mild Weakness Left Upper Extremity Strength: Mild Weakness - Sensation Right Upper Extremity Sensation: Intact/Normal Left Upper Extremity Sensation: Intact/Normal Balance - Sitting Balance Static Sitting Balance: Good Dynamic Sitting Balance: Good - Standing Balance Static Standing Balance: Fair Dynamic Standing Balance: Fair - Comments Balance Assessment Comments: fair ADL Skills - Self Feeding Self Feeding: Independent - Grooming Grooming: CGA - Bathing Bathing UE: CGA Bathing LE: CGA - Dressing Dressing UE: Supervision Dressing LE: Supervision - Toilet Management Toileting Management: Supervision Functional Mobility - Bed Mobility Rolling R/L: CGA Scooting: CGA Supine to Sit: CGA Sit to Supine: CGA - Transfers Sit to Stand: CGA Stand to Sit: CGA Stand Pivot Transfers: CGA - Ambulation Weight Bearing Status: FWB Assistive Device Used: Rolling Walker Assistance needed with Ambulation: CGA - Safety Awareness Safety Awareness: Fair Additional Treatment Performed - Additional units charged ADL: 15 - Time with patient Total treatment time: 28 Activities Patient Interests:: Watching Television Patient Education Patient Education: Home Exercise Program, Home Safety Teaching Recipient: Patient, Primary Caregiver Teaching Methods: Discussion, Demonstration Assessment Problem List:: Decreased safety/Risk of falls, Weakness Rehab Potential: Good Further Therapy Indicated?: Yes Short Term Goals - Goals GOAL 1: Pt to increase BUE strength to 4+/5. Goal to be met by: 09/12/17 Progress towards goal: Progressing GOAL 2: Pt to increase sink level ADLS to CGA. Goal to be met by: 09/12/17 GOAL 3: Pt to increase sink level ADLS to CGA. Goal to be met by: 09/12/17 Bakery Chef Goals GOAL 1: Pt to increase BUE strength to 5/5. Goal to be met by: 09/15/17 GOAL 2: Pt to increase sink level ADLS to SBA. Goal to be met by: 09/15/17 GOAL 3: Pt to be SUP with RW Goal to be met by: 09/15/17 Plan Plan of Care: Therapeutic EX, Neuromuscular Re-Educ, Therapeutic Activity, Self- Care/Home Management Frequency of Treatment: 1-2 X day, as tolerated Duration of Treatment: 2 Weeks Anticipated Discharge Destination: Assisted Living Facility
--- NOTE | 2017-09-05 16:05 | RS.PTINEVL ---
Subjective - Patient information Date of Evaluation: 09/05/17 Date of Arrival on Unit: 09/04/17 Admitted From:: Home Usual Living Arrangement: Alone Living Arrangement Comments: Pt lives at [facility]. Pt has 16 hours a day of caregivers. Pt uses a RW to ambulate. Pt requires setup for alot of his CG. 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 pt diagnosis, dehydration, diarrhea - Level of function Prior to this admission, the patient could do the following:: Partially Dependent Ambulation Abilities prior to this admission: pt amb with straight cane. Current Level of Function: Partially Dependent Current Equipment Used at Home: shower chair, rolling walker, Interventions - Objective Patient Orientation: Person, Place Current Interventions: IV's, Telemetry Observation: pt is incontinent Range of Motion - ROM Right Upper Extremity AROM: WFL's Left Upper Extremity AROM: WFL's Right Lower Extremity AROM: WFL's Left Lower Extremity AROM: WFL's Muscle Strength - Muscle Strength Right Upper Extremity Strength: Mild Weakness (RUE grossly 4-/5) Left Upper Extremity Strength: Mild Weakness (LUE grossly 4-/5) Right Lower Extremity Strength: Mild Weakness (RLE hip flex 4-/5, knee flex/ext 4/5, ankle Df/PF 4/5) Left Lower Extremity Strength: Mild Weakness (LLE hip flex 4-/5, knee flex/ext 4 /5, ankle Df/PF 4/5) Sensation - Sensation Right Upper Extremity Sensation: Intact/Normal Left Upper Extremity Sensation: Intact/Normal Right Lower Extremity Sensation: Intact/Normal Left Lower Extremity Sensation: Intact/Normal Palpation Palpation Findings: None/Normal Balance - Sitting Balance and Reactions Static Sitting Balance: Good Dynamic Sitting Balance: Good - Standing Balance and Reactions Static Standing Balance: Fair Dynamic Standing Balance: Fair Standing Equilibrium Reactions: Delayed Left, Delayed Right Standing Protective Reactions: Delayed Left, Delayed Right - Comments Balance Assessment Comments: TUG 45 secs Functional Mobility - Bed Mobility Rolling R/L: Independent Scooting: Verbal Cues Supine to Sit: CGA Sit to Supine: CGA - Transfers Sit to Stand: CGA Stand to Sit: CGA - Safety Awareness Safety Awareness: Fair Ambulation - Ambulation Assistive Device Used: Straight Cane Orthotic/Prosthetic Device: No Distance: 40ft Assistance needed with Ambulation: CGA Gait Deviations: Short stride Ambulation Comments: pt amb with occasional increased lat sway Treatment time - Time with patient Total treatment time: 25 Patient Education - Education Patient Education: Activity Modification, Education of Plan of Care Teaching Recipient: Patient Teaching Methods: Discussion, Demonstration (Discussed fall safety with patient. ) Assessment - Assessment Problem List:: Decreased level of function, Requires training/education, Decreased safety/Risk of falls, Weakness Rehab Potential: Good Further Therapy Indicated?: Yes Short Term Goals GOAL #1: pt transfer sup to/from sit to/from stand independently Goal to be met by: 09/07/17 GOAL #2: pt amb 75ft with cane CGA with no LOB Goal to be met by: 09/07/17 Paradichlorobenzene Tender Goals GOAL #1: pt amb with cane functional distances with no LOB with SBA Goal to be met by: 09/09/17 GOAL #2: pt with improved strength BLE 4 to 4+/5 and independent with HEP Goal to be met by: 09/09/17 GOAL #3: pt with improved dyn stand balance as noted by TUG <40 secs Goal to be met by: 09/09/17 Plan Plan of Care: Therapeutic EX, Therapeutic Activity, Self-Care/Home Management Other:: gait training Frequency of Treatment: 1-2 X day, as tolerated Duration of Treatment: 4 days Anticipated Discharge Destination: Assisted Living Facility
[2017-09-06 05:30] LABS: BASOPHILS # (AUTO) 0.1 K/uL (0-0.2); BASOPHILS % (AUTO) 1.2 % (0.0-3.0); EOSINOPHILS # (AUTO) 0.6 K/ul (0.0-0.7); EOSINOPHILS % (AUTO) 7.9 % (0.0-7.0); HEMATOCRIT 47.8 % (42.0-52.0); HEMOGLOBIN 16.1 g/dl (14.0-18.0); IMMATURE GRANULOCYTE % (AUTO) 0.3 % (0.0-5.0); LYMPHOCYTES # (AUTO) 1.8 K/uL (0.60-3.4); MEAN CORPUSCULAR HEMOGLOBIN 32.1 pg (27.0-31.0); MEAN CORPUSCULAR HGB CONC 33.7 (31.8-35.4); MEAN CORPUSCULAR VOLUME 95.2 fl (80.0-94.0); MONOCYTES # (AUTO) 1.1 K/uL (0.4-2.0); MONOCYTES % (AUTO) 14.2 (0-10); NEUTROPHILS # (AUTO) 3.9 K/ul (2.0-6.9); NEUTROPHILS % (AUTO) 52.4; PLATELET COUNT 217 10^3/uL (140-440); RED BLOOD COUNT 5.02 10^6/ul (4.70-6.10); WHITE BLOOD COUNT 7.37 K/ul (4.2-10.2)
[2017-09-06 06:04] LABS: ALBUMIN 3.3 g/dL (3.4-5.0); ANION GAP 13.5; BILIRUBIN,TOTAL 2.18 mg/dL (0.00-1.20); BUN/CREATININE RATIO 14.81; CALCIUM 8.9 mg/dL (8.2-10.2); CREATININE 0.81 mg/dL (0.60-1.10); POTASSIUM 3.5 mmol/L (3.5-5.1); TOTAL PROTEIN 6.6 g/dL (5.8-8.1)
[2017-09-06] MEDS: D5%-1/2NS-KCL 20 MEQ/L IV SOL 1,000 ML IV SCH (07:43)
[2017-09-06] MEDS: COREG PO SCH ×2 (08:18→16:52)
[2017-09-06] MEDS: ASPIRIN CHEWABLE PO SCH (08:18)
[2017-09-07] MEDS: D5%-1/2NS-KCL 20 MEQ/L IV SOL 1,000 ML IV SCH ×2 (04:36→06:57)
[2017-09-07 04:55] LABS: BASOPHILS # (AUTO) 0.1 K/uL (0-0.2); BASOPHILS % (AUTO) 1.1 % (0.0-3.0); EOSINOPHILS # (AUTO) 0.5 K/ul (0.0-0.7); EOSINOPHILS % (AUTO) 5.5 % (0.0-7.0); HEMATOCRIT 46.9 % (42.0-52.0); HEMOGLOBIN 16.2 g/dl (14.0-18.0); IMMATURE GRANULOCYTE % (AUTO) 0.4 % (0.0-5.0); LYMPHOCYTES # (AUTO) 1.5 K/uL (0.60-3.4); LYMPHOCYTES % (AUTO) 16.2 (10.0-50.0); MEAN CORPUSCULAR HEMOGLOBIN 32.8 pg (27.0-31.0); MEAN CORPUSCULAR HGB CONC 34.5 (31.8-35.4); MEAN CORPUSCULAR VOLUME 94.9 fl (80.0-94.0); MONOCYTES # (AUTO) 1.2 K/uL (0.4-2.0); MONOCYTES % (AUTO) 12.8 (0-10); NEUTROPHILS # (AUTO) 5.7 K/ul (2.0-6.9); PLATELET COUNT 209 10^3/uL (140-440); RED BLOOD COUNT 4.94 10^6/ul (4.70-6.10); WHITE BLOOD COUNT 8.95 K/ul (4.2-10.2)
[2017-09-07 05:15] LABS: ALBUMIN 3.1 g/dL (3.4-5.0); ANION GAP 11.2; BILIRUBIN,TOTAL 1.31 mg/dL (0.00-1.20); BUN/CREATININE RATIO 21.34; CALCIUM 8.9 mg/dL (8.2-10.2); CREATININE 0.89 mg/dL (0.60-1.10); POTASSIUM 4.2 mmol/L (3.5-5.1); TOTAL PROTEIN 6.2 g/dL (5.8-8.1)
[2017-09-07] MEDS: ASPIRIN CHEWABLE PO SCH (08:53)
[2017-09-07] MEDS: COREG PO SCH (08:53)
[2017-09-07 13:28] VITALS: BP 118/72; TEMP 97.5
--- NOTE | 2017-10-22 09:12 | PN ---
DATE OF VISIT: 09/05/17 SUBJECTIVE: The patient is alert without any complaints and denies any abdominal pain or nausea. The patient had a good appetite. He refused a snack. OBJECTIVE: Vital signs at 6 p.m. on 09/05/17 showed a temperature of 97.5, pulse 73, BP 133 /71, respiratory rate 18, oxygen saturation 96. Lungs were clear to auscultation but diminished. Heart is audible with good tones. Abdomen no significant tenderness. WBC normal 7,400, hemoglobin 15.2, hematocrit 44.9. MCV and MCH still elevated 95.7 and 32.4 respectively. Estimated GFR 77. The patient is stable and no further loose bowel movement. CT scan in the emergency room showed some minimal colitis. This may have been the reason for the diarrhea. MTDD
--- NOTE | 2017-10-22 09:19 | PN ---
DATE OF VISIT: 09/06/17 SUBJECTIVE: The patient is alert and cheerful. He is eating well and no nausea, no further diarrhea. Abdomen is protuberant and soft. Lungs are clear. Heart is normal sinus rhythm. This patient has a permanent pacemaker. The patient was diagnosed to have atrial fibrillation. OBJECTIVE: Rectal examination today revealed some abnormal sensation or tumor at the tip of my finger. This could be a mucosa; however, I had mentioned to the patient's relative, Cely that I do believe this needs to be investigated. They were against colonoscopy previously for screening. Lungs were clear. Heart normal sinus rhythm. Vital signs 09/06/17 at 5:57 p.m. showed a temperature of 98.2, pulse 82, respiratory rate 18. Oxygen saturation done later in the evening was 95 on room air. This patient would likely be discharged tomorrow if continues to have no bowel movement, no nausea, no vomiting or abdominal pain. ] MTDD
--- NOTE | 2017-10-24 11:15 | DS ---
PATIENT IDENTIFICATION: 87 year old male resident of an assisted living facility was found by his sitter to have multiple droppings of stool from his bed to the bathroom about 19 places. She concluded that he had frequent diarrhea. I did advise her that maybe that is not a number of times just stool that he had started trying to get to the bathroom. HOSPITAL COURSE: He was seen at the emergency room after that and the doctor in the emergency room felt that this patient is dehydrated and advised admission. CAT scan done at the emergency room was unremarkable. The patient denied any abdominal pain or nausea or vomiting. Labs on admission, 09/04/17 CBC: Normal WBC, normal hgb, elevated MCV and MCH and was repeated times three showing persistent normal leukocyte count, persistent MCV and MCH, slightly elevated bilirubin ranging from 2.33 to 1.31 on discharge. AST and ALT were normal. Albumin was below normal ranging from 3.0 to 3.3. BUN slightly elevated on admission 26 upper normal 18 and since then the BUN had been closer to the upper normal. Urinalysis was unremarkable. The patient's appetite seemed to have improved and on discharge ate 100% of his meals, prior to that it was about 50%. The patient at the time of discharge was alert, responsive to verbal questions but not oriented to situation. His vital signs at 1:23pm 09/07/17 showed temperature 97.5, pulse 70, blood pressure 118/72, respiratory rate 20,oxygen saturation 94 at room air and was 95 previously. His color is good. NECK: No masses and no bruit CHEST: Symmetrical and equal except for the pacemaker generator in the left upper anterior chest LUNGS: Clear to auscultation HEART: Mostly regular. No murmurs are presented ABDOMEN: Protuberant, soft with no remarkably tenderness, no mass and no bruit. The patient denied any abdominal pain and denied any nausea in fact he ate all his food. The patient is then discharged back to the assisted living. The patient on rectal examination has something abnormal at the tip of my finger. Probably this patient needs limited Flex sigmoidoscopy or colonoscopy. I would talk to the daughter. I had communicated with the daughter with regards to that and she was agreeable. I did tell her that I would try to make an arrangement with Dr. Subramanian and talk to him and see when he can do to help. Make definitive conclusion to what appears to be an abnormal rectal examination. I did tell them that I could barely touch it with my finger but I do believe that it needs to be looked into. The daughter was agreeable. The patient at discharged was alert, cheerful and had a good affect. He was smiling. He denies any abdominal pain and denies any vomiting or anorexia. FINAL DIAGNOSES: 1. Diarrhea probably secondary to colitis, resolving. CT scan indicated some mild colitis 2. Senile Dementia, moderately severe and progressive 3. History of spontaneous subdural hematoma, evacuated 4. History of atrial fibrillation with a pacemaker, controlled 5. 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 History of Diabetes Mellitus 7. History of Coronary artery disease, status post cardiac catheterization angioplasty plus stent 8. History of Degenerative disc disease 9. History of bilateral venous insufficiency PROGNOSIS: Guarded. MTDD
== END 2017-09-07 14:10 | disposition home or self-care (01) | DRG 392 ==
LOC: ED 08:38 → MEDSURG B 10:44
PROVIDERS: ADMIT General Practice; ATTEND General Practice
DX: R19.7 Diarrhea, unspecified (principal); E86.0 Dehydration; F03.90 Unspecified dementia, unspecified severity, without behavioral disturbance, psychotic disturbance, mood disturbance, and anxiety; I48.91 Unspecified atrial fibrillation; E11.9 Type 2 diabetes mellitus without complications; I25.10 Atherosclerotic heart disease of native coronary artery without angina pectoris; I87.2 Venous insufficiency (chronic) (peripheral); R19.8 Other specified symptoms and signs involving the digestive system and abdomen; Z79.82 Long term (current) use of aspirin; Z79.899 Other long term (current) drug therapy; Z95.5 Presence of coronary angioplasty implant and graft; Z95.0 Presence of cardiac pacemaker; Z86.718 Personal history of other venous thrombosis and embolism; Z95.828 Presence of other vascular implants and grafts
CPT/HCPCS: 36415; 80053; 81001; 85025; 93005; 93010; 97802; 99284

== ENCOUNTER 2017-09-19 06:15 | Day surgery (SDC) | payer OTHER ==
[2017-09-19] MEDS ORDERED: LIDOCAINE 1% 20 ML MDV ID ONE (07:05)
[2017-09-19] MEDS ORDERED: ROMAZICON IVP ONE (08:15)
[2017-09-19] MEDS ORDERED: DIPRIVAN 20 ML VIAL IVP ONE (08:15)
[2017-09-19] MEDS ORDERED: VERSED ONE (08:15)
[2017-09-19 09:58] VITALS: BP 128/75; TEMP 97.2
--- NOTE | 2017-09-20 09:10 | OP ---
INDICATIONS FOR PROCEDURE: 87 year old gentleman who has had a couple episodes of explosive diarrhea. His primary care physician, Dr. Ragland contacted me stating that he believed he felt an abnormality of digital rectal exam. Given the patient's overall medical condition it was requested for a limited colon exam to evaluate this area. The patient presents today for limited colon exam. He tells me that he did not drink all of his Magnesium Citrate but he did receive his Fleets enema this morning. MEDICATIONS: SEE ANESTHESIA NOTES. PROCEDURE: LIMITED COLON EXAM TO THE PROXIMAL SIGMOID REPORT: The risks, benefits, alternatives and limitations were discussed in detail with the patient and his family. Informed consent was obtained. After adequate sedation was achieved, a digital rectal exam revealed not abnormalities. The colonoscope was introduced into the rectum and advanced under direct visual guidance and was able to advance it to approximately proximal sigmoid area. Here I encountered an increased amount of stool where I could be see the lumen I therefore slowly withdrew the scope in a circumferential manner and examined the mucosa quite carefully. The prep was poor. 4/5 of the lumen could be seen but the dependent area had pooling stool which was liquid and semisolid. It was adequate for this exam which was to evaluate for large mass lesions. I noted no abnormalities throughout the entire length of the exam of the colon. The scope was retroflexed and anal canal which was unremarkable. There are no large lesions or mass lesions in rectal area where Dr. Ragland believed that he felt abnormality. I did not feel anything on my digital rectal exam and nothing was visualized today. The patient tolerated the procedure well with stable vital signs and pulse oximetry throughout. IMPRESSION: 1. No mass lesions found in this limited exam by coloscopic technique or digital rectal exam 2. Poor prep in places not allowing evaluation for polyps but that was not the purpose of this exam. The prep was adequate to evaluate for rectal malignancies. RECOMMENDATIONS: 1. High fiber diet 2. Follow with GI as needed CC: Dr. Ellyn MYERS
== END 2017-09-19 09:50 | disposition home or self-care (01) ==
LOC: SURG 06:15
PROVIDERS: ATTEND Internal Medicine Gastroenterology
DX: R19.7 Diarrhea, unspecified (principal); R19.8 Other specified symptoms and signs involving the digestive system and abdomen

== ENCOUNTER 2017-09-20 16:37 | Inpatient (IN) ==
[2017-09-20] MEDS ORDERED: SODIUM CHLORIDE 1,000 ML IV STA (16:41)
[2017-09-20] MEDS ORDERED: ZOFRAN 4 MG/2 ML IVP STA (16:41)
--- NOTE | 2017-09-20 18:13 | CT ---
EXAM: CT head without contrast HISTORY: Slurred speech and dizziness with elevated blood pressure and vomiting COMPARISON: CT head 12/22/2015 and multiple priors TECHNIQUE: Serial axial images of the brain were obtained from the skull base to the vertex without IV contrast. FINDINGS: The ventricles, cisterns and sulci are unchanged with generalized volume loss. There is e ncephalomalacia of the left cerebellum with chronic infarct changes in the right cerebellum. There i s diffuse scattered low attenuation in the periventricular white matter. The cam-white matter junct ion is maintained. Overall appearance is not significantly changed from prior exam.No midline shift or mass is identified. There is no abnormal intra or extra-axial fluid collection. The paranasal si nuses and mastoid air cells are clear. The osseous calvarium demonstrates a left frontal radha hole. There is atherosclerotic disease of the vessels at the skull base. IMPRESSION: 1. No acute intracranial abnormality or hemorrhage. 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 If further evaluation is clinically indicated, MRI may be obtained. 2. Scattered generalized volume loss and atrophy with previous bilateral cerebellar infarcts with mi ld encephalomalacia. 3. Unchanged left frontal radha hole with scattered atherosclerotic disease.
--- NOTE | 2017-09-20 18:21 | CT ---
EXAM: CT abdomen pelvis without contrast HISTORY: Slurred speech with hypertension and vomiting COMPARISON: CT abdomen pelvis 09/04/2017 and 05/23/2017 with multiple priors TECHNIQUE: Serial axial images of the abdomen pelvis were performed from the lung bases through the inferior pelvis without contrast. These were viewed in multiple planes. FINDINGS: The lung bases are better evaluated on same day CT with right greater than left pleural fl uid. Heart is enlarged. Evaluation is limited due to lack of contrast. The the liver is unchanged. Gallbladder is mildly di stended without inflammation. The adrenal glands are normal. The kidneys demonstrate no obstructive uropathy. There is a left inferior renal pole stone measuring 0.5 cm in diameter. The spleen is un remarkable. Pancreas is unremarkable. There is an IVC filter in place. There is moderate atheroscl erotic disease of the aorta. Small bowel in the abdomen pelvis is unremarkable. The colon is unremarkable. Urinary bladder is di stended. The osseous structures are unremarkable with mild scattered degenerative disease. There is a small fat-containing umbilical hernia. IMPRESSION: 1. No acute intra-abdominal or pelvic process to account for patient's symptoms. There is moderate atherosclerotic disease and an IVC filter in place. 2. Right greater than left small pleural effusions. 3. Nonobstructing left renal stone. 4. Degenerative disease of the spine and small fat-containing umbilical hernia.
--- NOTE | 2017-09-20 18:24 | CT ---
EXAM: CT of the chest without contrast. HISTORY: High blood pressure. Vomiting. PROCEDURE: Contiguous axial CT images of the chest without contrast with coronal and sagittal reform ats. FINDINGS: The heart is enlarged. The thoracic aorta is within normal limits in diameter. There are atherosclerotic calcifications in the thoracic aorta. There are coronary artery calcifications. Ther e is a small layering left pleural effusion and a moderate layering right pleural effusion. There is bilateral consolidation. There are degenerative changes in the spine. There is a single lead pacem braydon. There is a small cyst in the liver. The adrenal glands are normal in appearance. Impression: Bilateral consolidation consistent with atelectasis and/or pneumonia. Moderate right pleural effusion and small left pleural effusion. Cardiomegaly. Atherosclerotic vascular disease.
--- NOTE | 2017-09-20 18:30 | ED.PDOC ---
General ED Provider: Dr. VERN TORRES-ER Chief Complaint: Dizziness Stated Complaint: attendant states he has been coughing and running a fever Time Seen by Physician: 18:29 Mode of Arrival: Stretcher Information Source: EMT, Assisted Living Exam Limitations: Clinical condition [facility] and Triage Documentation Reviewed and Agree: Yes Respiratory Complaint Exam - Respiratory Complaint/Exam Onset/Duration: several weeks Symptoms Are: Still present Timing: Intermittent Initial Severity: Mild Current Severity: Moderate Location: Chest Character: Reports: Non-productive cough Aggravating: Reports: URI Alleviating: Reports: None Associated Signs and Symptoms: Reports: Fever, Chills, Decreased oral intake. Denies: Rapid breathing, Dyspnea, Chest pain, Pleuritic chest pain, Wheezing, Hemoptysis, Dizziness, Calf pain, Calf swelling, Edema, URI, Nasal congestion, Hoarseness, Sinus discomfort, Vomiting, Sore throat, Weight loss, Increased thirst, Increased appetite History of Healthcare-Acquired Pneumonia: No Review of Systems - Review Of Systems Constitutional: Reports: Chills, Fever, Weakness Eyes: Reports: No symptoms Ears, Nose, Mouth, Throat: Reports: No symptoms Respiratory: Reports: Cough Cardiac: Reports: No symptoms GI: Reports: No symptoms : Reports: No symptoms Musculoskeletal: Reports: No symptoms Skin: Reports: No symptoms Neurological: Reports: No symptoms Endocrine: Reports: No symptoms Hematologic/Lymphatic: Reports: No symptoms All Other Systems: Reviewed and Negative Past Medical History - Past Medical History Previously Healthy: No (extended care) Endocrine: Reports: Dyslipidemia Cardiovascular: Reports: CAD Respiratory: Reports: None Hematological: Reports: None Gastrointestinal: Reports: Unknown Genitourinary: Reports: Other (Prostate) 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) Musculoskeletal: Reports: Unknown Cancer: Reports: Other (Prostate) - Surgical History General Surgical History: Reports: Pacemaker, Other (Angioplasty) - Family History Family History: Reports: Unknown - Social History Smoking Status: Never smoker Hx Substance Use: No Alcohol Screening: None Lives: With family Physical Exam - Physical Exam Appearance: Well-appearing, No pain distress, Well-nourished Eyes: DOYLE, EOMI, Conjunctiva clear ENT: Ears normal Neck: Supple Respiratory: Airway patent, Breath sounds clear, Breath sounds equal, Respirations nonlabored, Crackles, Rhonchi Cardiovascular: RRR, Pulses normal, No rub, No murmur GI/: Soft, Nontender, No masses, Bowel sounds normal, No Organomegaly Musculoskeletal: Normal strength, ROM intact, No edema, No calf tenderness Skin: Warm Neurological: Sensation intact, Motor intact, Reflexes intact, Cranial nerves intact, Alert, Oriented Psychiatric: Affect appropriate, Mood appropriate Interpretation - Radiology Interpretation Radiology Interpretation By: Radiologist Radiology Results: Positive Exam Interpreted: CT Scan Physician Notification - Case Discussed Physician Notified: dr koroma Time of Notification: 18:34 Critical Care Note - Critical Care Note Total Time (mins): 0 Course - Course Hematology/Chemistry: 09/20/17 16:45 09/20/17 16:45 Orders, Labs, Meds: Lab Review 09/20/17 09/20/17 09/20/17 16:45 16:45 17:55 WBC 6.35 RBC 4.65 L Hgb 15.3 Hct 44.5 MCV 95.7 H MCH 32.9 H MCHC 34.4 RDW Coeff of Arpit 14.0 Plt Count 192 Immature Gran % (Auto) 0.5 Neut % (Auto) 59.6 Lymph % (Auto) 23.0 [place] % (Auto) 10.1 H Eos % (Auto) 5.4 Baso % (Auto) 1.4 Immature Gran # (Auto) 0.0 Neut # 3.8 Lymph # 1.5 [place] # 0.6 Eos # 0.3 Baso # 0.1 Sodium 142 Potassium 4.3 Chloride 111 H Carbon Dioxide 21 L Anion Gap 14.3 BUN 16 Creatinine 0.89 Estimated GFR (MDRD) 81.00 BUN/Creatinine Ratio 17.97 Glucose 120 H Calcium 8.8 Total Bilirubin 0.97 AST 41 H ALT 33 Alkaline Phosphatase 87 Total Creatine Kinase 35 Troponin I 0.0160 Total Protein 6.3 Albumin 3.2 L Globulin 3.1 Albumin/Globulin Ratio 1.03 Urine Color Yellow Urine Clarity Clear Urine pH 6.0 Ur Specific [place] 1.025 Urine Protein 1+ Urine Glucose (UA) Trace Urine Ketones Negative Urine Blood Negative Urine Nitrite Negative Urine Bilirubin Negative Urine Urobilinogen 0.2 Ur Leukocyte Esterase Negative Urine Microscopic WBC 0-2 Ur Squamous Epith Cells 5-10 Urine Mucus Trace Orders Category Date Time Status EKG-(ED ONLY) Stat CARDIO 09/20/17 16:40 Completed IV [ED IV/MEDIPORT/POWERPORT] .ONCE EMERGENCY 09/20/17 16:40 Active BLOOD CULTURE (ED ONLY) Stat LAB 09/20/17 Ordered CBC W/ AUTO DIFF Stat LAB 09/20/17 16:45 Completed COMPREHENSIVE METABOLIC PANEL Stat LAB 09/20/17 16:45 Completed CREATINE KINASE Stat LAB 09/20/17 16:45 Completed TROPONIN I Stat LAB 09/20/17 16:45 Completed UA [URINALYSIS C & S IF INDICATED] Stat LAB 09/20/17 17:55 Completed 0.9 % Sodium Chloride [Saline Flush] MEDS 09/20/17 16:40 Active 1 syr IVF PRN PRN Ondansetron HCl/Pf [Zofran 4 mg/2 ml] MEDS 09/20/17 16:41 Discontinued 4 mg IVP ONCE STA Sodium Chloride 0.9% [Sodium Chloride] 1,000 ml MEDS 09/20/17 16:41 Active IV 30 mls/hr CT ABDOMEN/PELVIS WO CONTRAST Stat RADS 09/20/17 16:[address] CHEST W/O CONTRAST Stat RADS 09/20/17 16:[address] HEAD W/O CONTRAST Stat RADS 09/20/17 16:40 Completed Medications Generic Name Dose Route Start Last Admin Trade Name Freq PRN Reason Stop Dose Admin Sodium Chloride 1,000 mls @ 30 mls/hr 09/20/17 16:41 09/20/17 17:07 Sodium Chloride IV 09/22/17 02:00 30 mls/hr .[id number] STA Administration Sodium Chloride 1 syr 09/20/17 16:40 Saline Flush IVF PRN PRN To flush IV Discontinued Medications Generic Name Dose Route Start Last Admin Trade Name Freq PRN Reason Stop Dose Admin Ondansetron HCl 4 mg 09/20/17 16:41 09/20/17 17:07 Zofran 4 Mg/2 Ml IVP 09/20/17 16:42 4 mg ONCE STA Administration Vital Signs: Temp Pulse Resp BP Pulse Ox 09/20/17 17:34 77 16 148/80 H 97 09/20/17 16:38 97.2 F L 85 22 157/110 H 95 Departure - Departure Time of Disposition: 18:35 Disposition: ADMITTED INPATIENT Discharge Problem: Pneumonia Qualifiers: Pneumonia type: due to unspecified organism Laterality: bilateral Lung location : unspecified part of lung Qualified Code(s): J18.9 - Pneumonia, unspecified organism Instructions: Pneumonia (ED) Condition: Stable Pt referred to PMD for follow-up: Yes Allergies/Adverse Reactions: Allergies codeine Allergy (Verified 09/20/17 16:55) FLUSHING, ITCHING Home Medications: Ambulatory Orders Aspirin 81 mg PO DAILY 01/10/17 Carvedilol [Coreg] 3.125 mg PO BID 05/23/17 Multivitamin 1 cap PO DAILY 05/23/17 Disposition Discussed With: Patient, Family
[2017-09-20] MEDS ORDERED: VANCOMYCIN 1 GM in SODIUM CHLORIDE 250 ML IV STA (18:42)
[2017-09-20] MEDS: ZOSYN 3.375 GM 3.375 GM in SODIUM CHLORIDE 100 ML IV SCH ×2 (19:03→23:43)
[2017-09-20 20:48] VITALS: BMI 27.3
[2017-09-20] MEDS ORDERED: COREG PO SCH (21:00)
[2017-09-20] MEDS ORDERED: XOPENEX 0.63 MG NEB SCH (21:00)
[2017-09-20] MEDS: XOPENEX 0.63 MG NEB SCH (22:34)
[2017-09-20] MEDS ORDERED: DESYREL PO STA (22:37)
[2017-09-21] MEDS: ZOSYN 3.375 GM 3.375 GM in SODIUM CHLORIDE 100 ML IV SCH ×4 (05:04→23:11)
[2017-09-21] MEDS: XOPENEX 0.63 MG NEB SCH ×3 (05:10→21:46)
[2017-09-21] MEDS: ASPIRIN CHEWABLE PO SCH (08:12)
[2017-09-21] MEDS: COREG PO SCH ×2 (08:12→17:18)
[2017-09-21] MEDS ORDERED: DESYREL PO SCH (17:00)
[2017-09-21] MEDS: DESYREL PO SCH (20:08)
[2017-09-22] MEDS: XOPENEX 0.63 MG NEB SCH ×3 (05:02→22:26)
[2017-09-22] MEDS: ZOSYN 3.375 GM 3.375 GM in SODIUM CHLORIDE 100 ML IV SCH ×4 (05:48→23:07)
[2017-09-22] MEDS: COREG PO SCH ×2 (08:03→16:41)
[2017-09-22] MEDS: ASPIRIN CHEWABLE PO SCH (08:03)
[2017-09-22] MEDS: SODIUM CHLORIDE 1,000 ML IV SCH (09:10)
[2017-09-22] MEDS: DESYREL PO SCH (16:41)
[2017-09-23] MEDS: ZOSYN 3.375 GM 3.375 GM in SODIUM CHLORIDE 100 ML IV SCH ×4 (05:20→23:07)
[2017-09-23] MEDS: XOPENEX 0.63 MG NEB SCH ×3 (05:30→22:49)
[2017-09-23] MEDS: ASPIRIN CHEWABLE PO SCH (08:08)
[2017-09-23] MEDS: COREG PO SCH ×2 (08:08→16:34)
[2017-09-23] MEDS: SODIUM CHLORIDE 1,000 ML IV SCH ×2 (18:14→23:52)
[2017-09-23] MEDS: DESYREL PO SCH (20:42)
[2017-09-24] MEDS: XOPENEX 0.63 MG NEB SCH ×3 (05:05→22:10)
[2017-09-24] MEDS: ZOSYN 3.375 GM 3.375 GM in SODIUM CHLORIDE 100 ML IV SCH ×3 (05:44→17:08)
[2017-09-24] MEDS: COREG PO SCH ×2 (08:02→17:08)
[2017-09-24] MEDS: ASPIRIN CHEWABLE PO SCH (08:02)
--- NOTE | 2017-09-24 10:52 | DI ---
EXAM: Chest PA and lateral HISTORY: Pneumonia. COMPARRISON: 07/24/2017. CT chest 09/20/2017. FINDINGS: The heart is borderline enlarged. The aorta is tortuous and contains calcified plaques. S grzegorz lead left chest pacer device appears unchanged. Pulmonary vascularity is within normal limits. Tapering opacities are seen blunting the bilateral costovertebral angles. There is improved aeration of the lung bases when compared to the recent CT chest exam. No evidence of pneumothorax is seen. IMPRESSION: Improved aeration of the lung bases since recent CT chest 09/20/2017. Residual small bilateral layering pleural effusions.
[2017-09-24] MEDS ORDERED: MILK OF MAGNESIA PO STA (13:25)
[2017-09-24] MEDS: DESYREL PO SCH (20:42)
[2017-09-24] MEDS: SODIUM CHLORIDE 1,000 ML IV SCH (23:34)
[2017-09-25] MEDS: ZOSYN 3.375 GM 3.375 GM in SODIUM CHLORIDE 100 ML IV SCH ×3 (00:25→12:43)
[2017-09-25] MEDS: XOPENEX 0.63 MG NEB SCH ×2 (05:35→14:11)
[2017-09-25] MEDS: ASPIRIN CHEWABLE PO SCH (08:33)
[2017-09-25] MEDS: COREG PO SCH (08:33)
[2017-09-25 09:54] VITALS: BP 136/83; TEMP 98.1
--- NOTE | 2017-09-26 14:46 | PN ---
DATE OF VISIT: 09/24/17 SUBJECTIVE: The patient about noon today is alert and was eating his meal. He seemed to have a good appetite. The sitter did agree with the good appetite. he is not dyspneic or tachypneic and there was no nausea, vomiting or diarrhea. Labs are essentially unchanged from yesterday. Which consisted with the CBC and CMP. Vital signs at 9:32am showed a temperature of 97, pulse of 41 questionable, blood pressure 116/72, respiratory rate 20 and oxygen saturation 99 at room air. Pulse before 41 was 100 early in the morning. His x-ray showed improvement from the previous CT of the chest. The two modalities however are not comparable but the radiologist read the chest x-ray today 09/24/17 as improved aeration of the lung bases sent recent CT chest done 09/20/17, residual small bilateral layering pleural effusion. I did show the report to the daughter and I did tell her dad appears to be very clinically stable and had not had any nausea or vomiting or dizziness since admission and that his temperature had remained normal and I did show him the screen of the temperature from admission till today. I did tell her that the highest ever was 99 and only was recorded once. Again I showed her chest x-ray report. She mentioned that her father is wheezing. I told her that we will try to send him home tomorrow. I did examined the father after my discussed and the patient did not have any wheezing and I had asked the sitter whether she did hear any wheezing that this patient had. Auscultation revealed some diminished breath sounds but no inspiratory or expiratory wheeze. He still has a few rales at both bases. HEART: audible with good tones and not tachycardic ABDOMEN: Non tender and no tenderness in the posterior legs area. I'm not certain as to what the daughter was saying about her dad still has some wheezing. Certainly did not hear that with auscultation. The sitter also did not hear anything with regards to wheezing. CBC and Chemistries today are essentially the same as yesterday. No further CBC and Chemistry will be done tomorrow. This was series was discontinued. LUCIA
--- NOTE | 2017-09-27 09:33 | PN ---
DATE OF VISIT: 09/21/17 SUBJECTIVE: 87 year old male who was admitted on 09/20/17 because of bilateral pneumonia per CT is doing well with good appetite and no further nausea or vomiting. The symptom that did bring him to the emergency room with the dizziness which was followed by nausea and vomiting. The sitter did mention that the patient had a fever. This patient however on admission to the emergency room had a normal temperature and had remained normal until today; 6:00pm. The highest recorded was 98.1. His pulse is 80, blood pressure 134 /67, respiratory rate 20, oxygen saturation on room air 97%. He consumed 100% of his food. LUNGS: Some rales of the bases with no expiratory wheezing. Breath sounds are diminished. HEART: Mostly regular. This patient has a pacemaker because of history of atrial fibrillation. This patient had a subdural hematoma which was evacuated and so this patient is never anticoagulated on acute of the previous history. CBC today showed a normal WBC 7,980, hgb slightly lower then yesterday 14.1 from 15.3, MCV and MCH is still elevated 97.2 and 32.4. It was also elevated yesterday. Electrolyte showed slight elevation of Chlorides 112 but not clinically significant. Blood sugars are normal. EGFR 65. It was 81 on admission. This patient does not look sick at all at this time and is cheerful although he is forgetful, probably senile dementia. MTDD
--- NOTE | 2017-09-27 09:47 | PN ---
DATE OF VISIT: 09/22/17 SUBJECTIVE: The patient remained alert and responsive to some verbal commands. The patient I do believed remained oriented to person but mostly to his relatives or close relatives. He denies any pain anywhere in his body, no nausea or vomiting. His appetite is good and eating well. The sitter made that a comment that he always eats well. There was no nausea or vomiting through the night until today at 5:55pm 09/22/17. His temperature is 97.9, pulse 88, blood pressure 138/64, respiratory rate 18, oxygen saturation 97% on room air. His general appearance is good and he is not dyspneic or tachypneic and no cyanosis. FACE: Symmetrical and equal and has movement of all extremities. LUNGS: Has some diminished breath sounds with rales at both bases. No wheezing HEART: Audible and mostly regular and not tachycardiac. ABDOMEN: Protuberant and soft with no remarkable tenderness. EXTREMITIES: This patient does not have any tenderness in the lower extremities. This patient is moving his legs well and his arms. This patient is not given again any anticoagulation on account of his previous subdural hematoma. This patient had a previous DVT plus PE and has inferior vena cava filter. MTDD
--- NOTE | 2017-10-03 14:45 | PN ---
DATE OF VISIT: 09/23/17 SUBJECTIVE: The patient today is alert and oriented four not dyspneic or tachypneic. VITAL SIGNS: Temperature 96.9, pulse 70, blood pressure 124/74, respiratory rate 18, oxygen saturation 95 at room air. He is alert and cheerful and does answer questions, simple, such as do you have any pain?, Are you nauseous? both questions were answered as now. CBC showed a normal WBC 6,990, hgb and hct is able the same and MCV and MCH is still elevated. Triglycerides has returned towards normal 109. EGFR is 73, blood sugar normal, liver enzymes are normal, albumin slightly below normal. LUNG: Still essentially the same, breath sounds are diminished with rales in both bases. No wheezing. The rales seem to be diminishing HEART: Audible mostly regular, not tachycardiac. ABDOMEN: Protuberant non tender LEGS: No remarkable tenderness to palpable in the calf muscles CONDITION: Stable and improved. MTDD
--- NOTE | 2017-10-27 13:48 | HP ---
SOURCE OF HISTORY: Emergency room records and sitter. Reliability marginal. CHIEF COMPLAINT: Fever, dizziness, nausea with vomiting. HISTORY OF PRESENT ILLNESS: The patient in the afternoon on the day of admission did complain of dizziness followed by nausea and vomiting. The patient vomited once prior to arrival of the EMS. The patient denied any further nausea in the emergency room and denies any pain. The patient's vital signs in the emergency room showed a temperature of 97.2, pulse 85, respiratory rate 22. Oxygen saturation on room air 95. BP 157/110. Weight in the emergency room was recorded at 206 lbs and 5.64 ounces. Weight at the floor was recorded at 191 lbs. This discrepancy was noted previously and had discussed this with the emergency room toy department manager. The patient, during the course of the workup was found to have infiltrates in bilateral basilar area judged as pneumonitis and was then admitted with a diagnosis of pneumonitis. The patient's WBC was normal. Urinalysis was unremarkable. Electrolytes were normal prior to admission as well as normal EGFR. I was contacted by the emergency room physician with regards to this patient and recommended admission on account of the findings on chest CT. PAST PERSONAL HISTORY: History of DVT and pulmonary emboli and now with inferior venacava filter, admitted to this facility 05/23/17 because of vomiting and diarrhea that has resolved. He also has continuous subdural hematoma evacuated some time ago, type 2 diabetes mellitus, senile dementia since 1008, atrial fibrillation with pacemaker, prostatic carcinoma operated, inguinal repair, cardiac catheterization and coronary angioplasty with stent, history of previous pneumonia, history of degenerative disk disease, bilateral venous insufficiency with dermal discoloration of both lower legs. Peripheral arterial disease. All tibial pulses are absent. FAMILY HISTORY: Mother had CVA and cerebral tumor plus diabetes mellitus. Father had chronic obstructive lung disease. SOCIAL HISTORY: The patient is a and resides at [facility] in [place]. He does not smoke any cigarettes or use any tobacco products and no alcoholic beverages. His children are looking after him. He does have a sitter at the [facility] beginning at 5 o'clock in the morning until 7 o'clock in the evening. MEDICATIONS: (prior to admission) Aspirin 81 mg daily Multivitamin one cap daily Carvedilol 3.125 mg twice a day Trazodone 25 mg daily ALLERGIES: CODEINE AND HAD SOME REACTION TO ZYPREXA REVIEW OF SYSTEMS: CONSTITUTIONAL: Alert with no chills, no fever. Denies any pain. This patient had some dizziness with nausea and vomiting. Sitter did mention about fever but the temperature at the emergency room was normal. This patient is not on any antipyretic medication. INFORMATION CONSULTANT: The patient is alert and does respond to questions, simple and follows verbal commands at times. Denies any headaches or any pain anywhere. The rest of the systom review is unreliable since the patient has senile dementia. PHYSICAL EXAMINATION: GENERAL: We have an 87-year-old male who resides at the assisted living with a sitter during the day from 5 o'clock in the morning until 7 in the evening. The patient was admitted via the emergency room because of the findings on chest CT indicating bilateral pneumonitis, basal. The patient however did not have any symptoms such as cough or fever. The temperature on admission at the emergency room was normal 97.2. Vital signs on admission to the floor consisted of temperature 97, pulse 75, blood pressure 166/98, respiratory rate 18, oxygen saturation at 100 2L. The patient is recorded at at 5'10" and 191 lbs. There is a discrepancy from the emergency room weight 206 lbs , 5.6 ounces. HEAD: Unremarkable. Face is symmetrical and equal. No facial weakness. No significant tenderness to palpation and/or pressure in the frontal maxillary sinus areas. EYES: Pupils equal/reactive to light, about 3 mm in size.. Conjunctivae not pale. Sclerae not icteric. MOUTH: No swelling of the lips. No remarkable abnormalities. THROAT: No inflammation, tumors or exudate. NECK: No masses. No bruit. No tenderness. No rigidity. CHEST: Essentially symmetrical and equal with good expansion. The patient has a pacemaker in the left upper anterior chest. LUNGS: Breath sounds are heard on both sides, somewhat diminished with rales at both bases with no significant wheezing. HEART: Audible, mostly irregular with good tones. No murmurs. This patient had an atrial fibrillation but that more or less had reverted most of the time. ABDOMEN: Protuberant, soft with no remarkable tenderness. No guarding. Bowel sounds active. No masses palpable. EXTERNAL GENITALIA: Not examined. RECTAL: Done on the previous admission and there was some question of an irregularity at the end of my examining finger however on limited colonoscopy there was no tumor noted in the distal colon or rectum. Colonoscopy was done by Dr. Subramanian. LOWER EXTREMITIES: Are essentially symmetrical and equal with darker discoloration of the lower third of both legs and pedal pulses absent. UPPER EXTREMITIES: Symmetrical and equal. ASSESSMENT: 1. BILATERAL PNEUMONITIS BY CT 2. DIZZINESS, NAUSEA AND VOMITING, ETIOLOGY UNDETERMINED 3. SENILE DEMENTIA, MODERATELY SEVERE 4. PERIPHERAL ARTERIAL DISEASE, ABSENT TIBIAL PULSES BOTH FEET. 5. HISTORY OF DVT AND PULMONARY EMBOLI WITH INFERIOR VENA CAVAL FILTER 6. HISTORY OF DIABETES MELLITUS NOT ON MEDICATION 7. HISTORY OF ATRIAL FIBRILLATION WITH CONTROLLED VENTRICULAR RESPONSE WITH PACEMAKER 8. HISTORY OF PROSTATIC CARCINOMA STATUS POST SURGERY 9. HISTORY OF INGUINAL HERNIA REPAIR 10. HISTORY OF CORONARY ARTERY DISEASE STATUS POST CARDIAC CATHETERIZATION, ANGIOPLASTY AND STENT 11. HISTORY OF SUBDURAL HEMATOMA, OPERATED 12. HISTORY OF DEGENERATIVE DISK DISEASE PROGNOSIS: Poor MTDD
--- NOTE | 2017-12-15 13:23 | DS ---
PATIENT IDENTIFICATION: This is an 87-year-old male who was brought to the emergency room because of fever, dizziness, nausea and vomiting. In the course of the workup the patient is noted to have bilateral infiltrate, basal bilateral pneumonitis. The patient required admission because of the fever plus nausea and vomiting. Initial labs consisted of essentially normal CBC except for increased MCV and MCH. CMP unremarkable. Urinalysis normal. HOME MEDICATIONS: Aspirin 81 mg daily Multivitamin one daily Carvedilol 3.125 twice a day Trazodone 50 mg tablet 25 mg at bedtime HOSPITAL COURSE: The patient, while in the hospital, was given Vancomycin 1 gm intravenously as well as Zosyn 3.375 mg q.6hr. Xopenex nebulization was also prescribed every 8 hours and IV consisting of Normal Saline at 40 cc/hr. The patient's Vancomycin was not continued but the Zosyn was until discharge. The combination of Vancomycin plus Zosyn - increased acute renal injury. The home medications were continued during this hospitalization. The patient was given Zofran for nausea p.r.n. A multivitamin capsule was held while in the hospital. The patient's appetite had remained good. He had been eating 100% of his dinner. He remained afebrile during the entire hospital stay, the highest temperature 99, blood pressure was mostly in the normal limits. Respiratory rate was 16 to 20. Oxygen saturation between 94 to 98 on room air. The patient, at time of discharge, was alert and responsive although not appropriate at times. He was not dyspneic or tachypneic. Appetite was good and had not had any vomiting or nausea. The lungs have diminished breath sounds and a few rales at the bases but no inspiratory/ expiratory wheeze. Chest x-ray showed improved aeration done the day before discharge. The patient is then discharged 09/25/17. New prescription of Augmentin 875/125 to be taken twice a day, Xopenex nebulization 0.63 mg per vial. Nebulized q.12hr. No refill. The patient to see me in the office for followup in a week or two. FINAL DIAGNOSES: 1. BILATERAL PNEUMONITIS 2. NAUSEA AND VOMITING, ETIOLOGY UNDETERMINED, RESOLVED 3. SENILE DEMENTIA, PROGRESSIVE 4. HISTORY OF PAD, ABSENT TIBIAL PULSES, BOTH FEET 5. 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 HISTORY OF TYPE 2 DIABETES MELLITUS, NOT ON MEDICATION 7. HISTORY OF ATRIAL FIBRILLATION WITH CONTROLLED VENTRICULAR RESPONSE WITH PACEMAKER 8. HISTORY OF PROSTATIC CARCINOMA STATUS POST SURGERY 9. HISTORY OF INGUINAL HERNIA REPAIR 10. HISTORY OF CORONARY ARTERY DISEASE STATUS POST CARIDAC CATH WITH STENT 11. HISTORY OF SUBDURAL HEMATOMA, OPERATED 12. HISTORY OF DEGENERATIVE DISK DISEASE PROGNOSIS: Poor MTDD
== END 2017-09-25 14:50 | disposition home or self-care (01) | DRG 194 ==
LOC: ED 16:37 → MEDSURG B 18:40 → UNDOADMIN 18:40 → MEDSURG A 18:40
PROVIDERS: ADMIT General Practice; ATTEND General Practice
DX: J18.9 Pneumonia, unspecified organism (principal); J91.8 Pleural effusion in other conditions classified elsewhere; R42 Dizziness and giddiness; R11.2 Nausea with vomiting, unspecified; R50.9 Fever, unspecified; I10 Essential (primary) hypertension; I48.91 Unspecified atrial fibrillation; F03.90 Unspecified dementia, unspecified severity, without behavioral disturbance, psychotic disturbance, mood disturbance, and anxiety; I73.9 Peripheral vascular disease, unspecified; E11.9 Type 2 diabetes mellitus without complications; I25.10 Atherosclerotic heart disease of native coronary artery without angina pectoris; Z86.718 Personal history of other venous thrombosis and embolism; Z86.711 Personal history of pulmonary embolism; Z95.5 Presence of coronary angioplasty implant and graft; Z95.0 Presence of cardiac pacemaker; Z86.73 Personal history of transient ischemic attack (TIA), and cerebral infarction without residual deficits; Z95.828 Presence of other vascular implants and grafts; Z87.39 Personal history of other diseases of the musculoskeletal system and connective tissue; Z85.46 Personal history of malignant neoplasm of prostate
CPT/HCPCS: 36415; 80053; 81001; 82550; 84443; 84484; 85025; 87040; 87081; 93005; 93010; 94640; 96374; 97802; 99284

== ENCOUNTER 2017-11-17 07:33 | Emergency (ER) ==
[2017-11-17 07:41] VITALS: BP 139/80; TEMP 96; BMI 30.9
--- NOTE | 2017-11-17 09:36 | DI ---
Exam: Three x-rays of the chest. Comparison: 09/24/2017. Reason for exam: Cough. FINDINGS: Operative changes are seen after implanted intracardiac device placement. The cardiac silhouette remains prominent in size. There is blunting of the right costophrenic angle. The imaged osseous structures appear grossly unremarkable without acute fracture. Impression: Similar appearing right pleural effusion with cardiomegaly.
--- NOTE | 2017-11-17 10:02 | CT ---
EXAM: CT chest without contrast. HISTORY: Cough. Abdominal pain. COMPARISON: Radiograph earlier the same day. CT 09/20/2017. TECHNIQUE: Multiple axial images of the chest were obtained without intravenous contrast. Images we re reformatted in the sagittal and coronal planes. FINDINGS: The heart is enlarged. Left-sided electronic cardiac device is present. Atherosclerotic calcifications noted. There is no pericardial effusion. Right infrahilar lymph node measures 1.8 cm short axis on axial image 30. Prevascular lymph node power sures 1.1 cm short axis on axial image 21. Other mediastinal lymph nodes are present. Evaluation fo r lymphadenopathy is limited by lack of intravenous contrast. Small right pleural effusion is present. There is dependent subsegmental atelectasis in both lungs. No consolidation identified. There is no pneumothorax. Abdominal findings will be reported separately.. Mild superior endplate compression deformities of m ultiple mid thoracic vertebral bodies are stable. Degenerative changes noted throughout the spine. No acute osseous abnormality is detected. IMPRESSION: 1. Small right pleural effusion. No acute pulmonary process. 2. Stable nonspecific mediastinal lymphadenopathy.
--- NOTE | 2017-11-17 10:14 | CT ---
EXAM: CT ABDOMEN AND PELVIS HISTORY: Abdominal pain. Patient complained of blood in stool TECHNIQUE: CT abdomen and pelvis without intravenous contrast. Images were reconstructed using 5 mm section thickness. Reformations were prepared. COMPARISON: 09/20/2017 FINDINGS: There is a small low attenuation focus within the left hepatic lobe which appears stable since prior studies reviewed and may represent a cyst. Spleen is within normal limits. Gallbladder has no disti nct evidence of pathology. Pancreas and adrenal glands were within normal limits. No hydronephrosis or evidence of ureteral calculus. Moderately severe vascular calcifications. IVC filter noted endi ng below the renal vessels. No gastric distension. What may represent the appendix has no evidence of inflammation. Bowel gas p attern is within normal limits. There is thickening of the lower rectum. Urinary bladder is normal. No prostate is identified. There are some surgical clips in the lower anatomic pelvis. No ascites. There is a fatty umbilical hernia with a transverse neck of 1.9 cm likely of no current clinical sign ificance. The bones reveal arthropathy of the lower spine and the upper sacroiliac joints. There is a small right pleural effusion. No pneumoperitoneum is seen. IMPRESSION: 1. Thickening of the lower rectum may be related to inflammation. Infection or neoplasia less likel y although not excluded. Consider further workup if indicated clinically. 2. Small right pleural effusion. 3. Severe vascular calcifications. 4. IVC filter in place. 5. Probable liver cyst.
--- NOTE | 2017-11-17 10:38 | ED.PDOC ---
General ED Provider: Dr. RAIS ARANGO Chief Complaint: GI Bleed Stated Complaint: lower GI bleed Time Seen by Physician: 07:36 Mode of Arrival: Ambulance Information Source: EMT, Assisted Living, Other Exam Limitations: No limitations [facility] and Triage Documentation Reviewed and Agree: Yes Reviewed sepsis parameters & appropriate labs ordered?: Yes System Inflammatory Response Syndrome: Not Applicable Sepsis Protocol: For patient's 13 years and over: Temp is 96.8 and below OR 101 and greater Pulse >90 BPM Resp >20/minute Acutely Altered Mental Status Are patient's symptoms suggestive of a new infection, such as: -Pneumonia -Skin, Soft Tissue -Endocarditis -UTI -Bone, Joint Infection -Implantable Device -Acute Abdominal Infection -Wound Infection -Meningitis -Blood Stream Catheter Infection -Unknown GI Complaint Exam - GI Bleed Complaint/Exam Patient Complains of: Reports: Rectal bleeding Onset/Duration: THIS MORNING Symptoms Are: Resolved Episodes Lasting: Seconds Frequency: 1 Severity: Reports: Blood-streaked stool, Black tarry stool. Denies: Bright red blood-rectum, Coffee ground emesis, Hematemesis Location of Pain: Reports: None Aggravating: Reports: None Alleviating: Reports: None (HAD SOME ABDOMINAL PAIN RESOLVED UPON ARRIVAL NEGATIVE TRAUMA NO FEVER ) Associated Signs and Symptoms: Denies: Back Pain, Pallor, Dizziness, Weakness, Syncope, Constipation, Nausea, Rectal pain, Bruising, Weight loss, Recent abnormal coags Related History: Reports: Similar episode GI Bleed Risk Factors: Reports: None Recent Colonoscopy: No Recent EGD: No Related Surgical History: Reports: None Abdominal Findings: Present: None Differential Diagnoses: Diverticulitis, Hemorrhoids, Ulcerative Colitis, Crohn' s Disease Review of Systems - Review Of Systems Constitutional: Reports: No symptoms Eyes: Reports: No symptoms Ears, Nose, Mouth, Throat: Reports: No symptoms Respiratory: Reports: Cough Cardiac: Reports: No symptoms GI: Reports: Abdominal pain, Rectal bleeding : Reports: No symptoms Musculoskeletal: Reports: No symptoms Skin: Reports: No symptoms Neurological: Reports: No symptoms Endocrine: Reports: No symptoms Hematologic/Lymphatic: Reports: No symptoms All Other Systems: Reviewed and Negative Past Medical History - Past Medical History Previously Healthy: No (extended care) Endocrine: Reports: Dyslipidemia Cardiovascular: Reports: CAD Respiratory: Reports: None Hematological: Reports: None Gastrointestinal: Reports: Unknown Genitourinary: Reports: Other (Prostate) 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) Musculoskeletal: Reports: Unknown Cancer: Reports: Other (Prostate) - Surgical History General Surgical History: Reports: Other, Pacemaker - Family History Family History: Reports: Unknown - Social History Smoking Status: Never smoker Hx Substance Use: No Alcohol Screening: None Physical Exam - Physical Exam Appearance: Well-appearing, No pain distress, Well-nourished Eyes: DOYLE, EOMI, Conjunctiva clear ENT: Ears normal, Nose normal, Oropharynx normal Respiratory: Airway patent, Breath sounds clear, Breath sounds equal, Respirations nonlabored Cardiovascular: RRR, Pulses normal, No rub, No murmur GI/: Soft, Nontender, No masses, Bowel sounds normal, No Organomegaly Musculoskeletal: Normal strength, ROM intact, No edema, No calf tenderness Skin: Warm, Dry, Normal color Neurological: Sensation intact, Motor intact, Reflexes intact, Cranial nerves intact, Alert, Oriented Psychiatric: Affect appropriate, Mood appropriate Interpretation - Radiology Interpretation Radiology Interpretation By: Radiologist Radiology Results: No acute changes Exam Interpreted: CT Scan (CHEST SOME EFFUSION NOTED ) - 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 Rhythm: Other - EKG Interpretation Rhythm: Other (PACED RYTHM) Re-Evaluation - Re-Evaluation Time of Re-Evaluation: 09:00 Status: Improved Vital Signs Stable: Yes Pain Level: 0 Appearance: NAD Lungs: Clear Skin: Warm and Dry Neuro: Alert and Oriented X3 CV: RRR - Re-Evaluation Time of Re-Evaluation: 10:38 (LABS, CT REPORTS DISCUSSED COPIES PRINTED AND GIVEN TO THE FAMILY) Status: Improved Vital Signs Stable: Yes Pain Level: 0 Appearance: NAD Skin: Warm and Dry Neuro: Alert and Oriented X3 CV: RRR Critical Care Note - Critical Care Note Total Time (mins): 0 Course - Course Hematology/Chemistry: 11/17/17 09:00 11/17/17 09:00 Orders, Labs, Meds: Lab Review 11/17/17 11/17/17 11/17/17 08:53 09:00 09:00 WBC 6.57 RBC 4.57 L Hgb 14.9 Hct 44.4 MCV 97.2 H MCH 32.6 H MCHC 33.6 RDW Coeff of Arpit 13.8 Plt Count 181 Immature Gran % (Auto) 0.5 Neut % (Auto) 59.1 Lymph % (Auto) 19.9 [place] % (Auto) 11.0 H Eos % (Auto) 8.4 H Baso % (Auto) 1.1 Immature Gran # (Auto) 0.0 Neut # 3.9 Lymph # 1.3 [place] # 0.7 Eos # 0.6 Baso # 0.1 PT 10.2 INR 1.00 APTT 24.8 Sodium Potassium Chloride Carbon Dioxide Anion Gap BUN Creatinine Estimated GFR (MDRD) BUN/Creatinine Ratio Glucose Calcium Total Bilirubin AST ALT Alkaline Phosphatase Total Creatine Kinase Troponin I Total Protein Albumin Globulin Albumin/Globulin Ratio Urine Color Urine Clarity Urine pH Ur Specific [place] Urine Protein Urine Glucose (UA) Urine Ketones Urine Blood Urine Nitrite Urine Bilirubin Urine Urobilinogen Ur Leukocyte Esterase Stl Occult Blood (IFOB) Negative Stool Occult Blood #2 Pending Stool Occult Blood #3 Pending 11/17/17 11/17/17 09:00 10:17 WBC RBC Hgb Hct MCV MCH MCHC RDW Coeff of Arpit Plt Count Immature Gran % (Auto) Neut % (Auto) Lymph % (Auto) [place] % (Auto) Eos % (Auto) Baso % (Auto) Immature Gran # (Auto) Neut # Lymph # [place] # Eos # Baso # PT INR APTT Sodium 141 Potassium 4.4 Chloride 106 Carbon Dioxide 26 Anion Gap 13.4 BUN 17 Creatinine 0.92 Estimated GFR (MDRD) 78.00 BUN/Creatinine Ratio 18.47 Glucose 100 Calcium 9.1 Total Bilirubin 0.9 AST 26 ALT 22 Alkaline Phosphatase 87 Total Creatine Kinase 36 Troponin I 0.0120 Total Protein 6.3 Albumin 3.2 L Globulin 3.1 Albumin/Globulin Ratio 1.03 Urine Color Yellow Urine Clarity Clear Urine pH 6.5 Ur Specific [place] 1.015 Urine Protein Negative Urine Glucose (UA) Negative Urine Ketones Negative Urine Blood Negative Urine Nitrite Negative Urine Bilirubin Negative Urine Urobilinogen 0.2 Ur Leukocyte Esterase Negative Stl Occult Blood (IFOB) Stool Occult Blood #2 Stool Occult Blood #3 Orders Category Date Time Status EKG-(ED ONLY) Stat CARDIO 11/17/17 08:48 Ordered CBC W/ AUTO DIFF Stat LAB 11/17/17 09:00 Completed COMPREHENSIVE METABOLIC PANEL Stat LAB 11/17/17 09:00 Completed CREATINE KINASE Stat LAB 11/17/17 09:00 Completed OCCULT BLOOD, STOOL Stat LAB 11/17/17 08:53 Results PARTIAL THROMBOPLASTIN TIME Stat LAB 11/17/17 09:00 Completed PT WITH INR Stat LAB 11/17/17 09:00 Completed TROPONIN I Stat LAB 11/17/17 09:00 Completed URINALYSIS C & S IF INDICATED Stat LAB 11/17/17 10:17 Completed CHEST, 2 VIEWS PA & LAT Stat RADS 11/17/17 08:[address] ABDOMEN/PELVIS WO CONTRAST Stat RADS 11/17/17 08:[address] CHEST W/O CONTRAST Stat RADS 11/17/17 09:33 Completed Vital Signs: Temp Pulse Resp BP Pulse Ox 11/17/17 07:34 96 F L 80 20 139/80 97 Departure - Departure Time of Disposition: 10:39 Disposition: HOME SELF-CARE Discharge Problem: Gastrointestinal hemorrhage Instructions: Rectal Bleeding (ED), Gastrointestinal Bleeding (ED) Condition: Good Pt referred to PMD for follow-up: Yes Additional Instructions: Please call your Family Physician as soon as possible to schedule a follow-up appointment. Allergies/Adverse Reactions: Allergies codeine Allergy (Verified 11/17/17 07:45) FLUSHING, ITCHING Home Medications: Ambulatory Orders Aspirin 81 mg PO DAILY 01/10/17 Carvedilol [Coreg] 3.125 mg PO BID 05/23/17 Multivitamin 1 cap PO DAILY 05/23/17 Trazodone HCl 25 mg PO DAILY 11/17/17 Trazodone HCl 50 mg PO BEDTIME 11/17/17
== END 2017-11-17 10:45 | disposition home or self-care (01) ==
LOC: ED 07:33
DX: K62.5 Hemorrhage of anus and rectum (principal); R05 Cough; R10.9 Unspecified abdominal pain; E78.5 Hyperlipidemia, unspecified; I25.10 Atherosclerotic heart disease of native coronary artery without angina pectoris; Z86.73 Personal history of transient ischemic attack (TIA), and cerebral infarction without residual deficits; Z95.0 Presence of cardiac pacemaker; Z85.46 Personal history of malignant neoplasm of prostate; Z79.899 Other long term (current) drug therapy; R19.7 Diarrhea, unspecified; F03.90 Unspecified dementia, unspecified severity, without behavioral disturbance, psychotic disturbance, mood disturbance, and anxiety; R04.0 Epistaxis
CPT/HCPCS: 36415; 80053; 81001; 82272; 82550; 84484; 85025; 85610; 85730; 93005; 93010; 99283

== ENCOUNTER 2017-12-04 13:16 | Outpatient (CLI) | END 2017-12-04 13:17 | disposition home or self-care (01) | LOC: LAB 13:16 | PROVIDERS: ATTEND Emergency Medicine | DX: J06.9 Acute upper respiratory infection, unspecified (principal) | CPT/HCPCS: 87502 ==

== ENCOUNTER 2017-12-04 16:15 | Emergency (ER) ==
[2017-12-04 16:29] VITALS: BP 167/74; TEMP 97.7; BMI 28.3
[2017-12-04] MEDS ORDERED: AFRIN NASAL SPRAY NAS STA (16:44)
--- NOTE | 2017-12-04 18:33 | ED.PDOC ---
General ED Provider: Dr. ARIS ARANGO Chief Complaint: Nosebleed Stated Complaint: EPISTAXIS Time Seen by Physician: 16:17 (BLEEDING HAS STOPPED WHILE IN THE EMERGENCY ROOM) Mode of Arrival: Wheelchair Information Source: Patient, Family Exam Limitations: No limitations [facility] and Triage Documentation Reviewed and Agree: Yes Reviewed sepsis parameters & appropriate labs ordered?: Yes System Inflammatory Response Syndrome: Not Applicable Sepsis Protocol: For patient's 13 years and over: Temp is 96.8 and below OR 101 and greater Pulse >90 BPM Resp >20/minute Acutely Altered Mental Status Are patient's symptoms suggestive of a new infection, such as: -Pneumonia -Skin, Soft Tissue -Endocarditis -UTI -Bone, Joint Infection -Implantable Device -Acute Abdominal Infection -Wound Infection -Meningitis -Blood Stream Catheter Infection -Unknown System Inflammatory Response Syndrome: Not Applicable EENT Complaint Exam - Nasal Complaint/Exam Onset/Duration: 1 DAY Symptoms Are: Still present Timing: Intermittent Initial Severity: Mild Current Severity: Mild Location: Left Character: Light bleeding Aggravating: Reports: None Alleviating: Reports: None Associated Signs and Symptoms: Reports: Nasal congestion. Denies: Bruising, Hematuria, Hematochezia, Sinus pain, Nasal discharge, Foreign body, Abnormal coags Related History: Reports: Similar episode Nasal Surgical History: Reports: None Bleeding Present At: Left nostril Foreign Body Present: No Oropharynx Findings: Clots Review of Systems - Review Of Systems Constitutional: Reports: No symptoms Eyes: Reports: No symptoms Ears, Nose, Mouth, Throat: Reports: Nose pain Respiratory: Reports: No symptoms Cardiac: Reports: No symptoms GI: Reports: No symptoms : Reports: No symptoms Musculoskeletal: Reports: No symptoms Skin: Reports: No symptoms Neurological: Reports: No symptoms Endocrine: Reports: No symptoms Hematologic/Lymphatic: Reports: No symptoms All Other Systems: Reviewed and Negative Past Medical History - Past Medical History Previously Healthy: No (extended care) Endocrine: Reports: Dyslipidemia Cardiovascular: Reports: CAD Respiratory: Reports: None Hematological: Reports: None Gastrointestinal: Reports: Unknown Genitourinary: Reports: Other (Prostate) 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) Musculoskeletal: Reports: Unknown Cancer: Reports: Other (Prostate) - Surgical History General Surgical History: Reports: Other, Pacemaker - Family History Family History: Reports: Unknown - Social History Smoking Status: Never smoker Hx Substance Use: No Alcohol Screening: None - Immunizations Tetanus Shot up to Date: Yes Physical Exam - Physical Exam Appearance: Well-appearing, No pain distress, Well-nourished Eyes: DOYLE, EOMI, Conjunctiva clear ENT: Ears normal, Nose normal, Oropharynx normal, Epistaxis (LEFT HAD STOPPED ON ARRIVAL) Respiratory: Airway patent, Breath sounds clear, Breath sounds equal, Respirations nonlabored Cardiovascular: RRR, Pulses normal, No rub, No murmur GI/: Soft, Nontender, No masses, Bowel sounds normal, No Organomegaly Musculoskeletal: Normal strength, ROM intact, No edema, No calf tenderness Skin: Warm, Dry, Normal color Neurological: Sensation intact, Motor intact, Reflexes intact, Cranial nerves intact, Alert, Oriented Psychiatric: Affect appropriate, Mood appropriate Critical Care Note - Critical Care Note Total Time (mins): 0 Course - Course Hematology/Chemistry: 12/04/17 16:58 Orders, Labs, Meds: Lab Review 12/04/17 12/04/17 16:58 16:58 WBC 6.55 RBC 4.11 L Hgb 13.6 L Hct 39.8 L MCV 96.8 H MCH 33.1 H MCHC 34.2 RDW Coeff of Arpit 13.8 Plt Count 191 Immature Gran % (Auto) 0.5 Neut % (Auto) 90.3 Lymph % (Auto) 6.9 L [place] % (Auto) 1.4 Eos % (Auto) 0.3 Baso % (Auto) 0.6 Immature Gran # (Auto) 0.0 Neut # 5.9 Lymph # 0.5 L [place] # 0.1 L Eos # 0.0 Baso # 0.0 PT 9.6 INR 0.94 APTT 25.2 Orders Category Date Time Status CBC W/ AUTO DIFF Stat LAB 12/04/17 16:58 Completed PARTIAL THROMBOPLASTIN TIME Stat LAB 12/04/17 16:58 Completed PT WITH INR Stat LAB 12/04/17 16:58 Completed Oxymetazoline HCl [Afrin Nasal [place]] MEDS 12/04/17 16:44 Discontinued 2 spray USMAN ONCE STA Medications Discontinued Medications Generic Name Dose Route Start Last Admin Trade Name Freq PRN Reason Stop Dose Admin Oxymetazoline HCl 2 spray 12/04/17 16:44 12/04/17 16:59 Afrin Nasal [place] USMAN 12/04/17 16:45 2 spray ONCE STA Administration Vital Signs: Temp Pulse Resp BP Pulse Ox 12/04/17 16:17 97.7 F 92 H 20 167/74 H 95 Departure - Departure Time of Disposition: 18:32 Disposition: HOME SELF-CARE Discharge Problem: Anterior epistaxis Instructions: Nosebleed (ED) Condition: Good Pt referred to PMD for follow-up: Yes Additional Instructions: Please call your Family Physician as soon as possible to schedule a follow-up appointment. Allergies/Adverse Reactions: Allergies codeine Allergy (Verified 11/17/17 07:45) FLUSHING, ITCHING Home Medications: Ambulatory Orders Carvedilol [Coreg] 3.125 mg PO BID 05/23/17 Multivitamin 1 cap PO DAILY 05/23/17 Trazodone HCl 25 mg PO DAILY 11/17/17 Trazodone HCl 50 mg PO BEDTIME 11/17/17
== END 2017-12-04 18:50 | disposition home or self-care (01) ==
LOC: ED 16:15
DX: R04.0 Epistaxis (principal); E78.5 Hyperlipidemia, unspecified; I25.10 Atherosclerotic heart disease of native coronary artery without angina pectoris; Z86.73 Personal history of transient ischemic attack (TIA), and cerebral infarction without residual deficits; Z95.0 Presence of cardiac pacemaker; J06.9 Acute upper respiratory infection, unspecified
CPT/HCPCS: 36415; 85025; 85610; 85730; 87502; 87804; 99283

== ENCOUNTER 2017-12-20 16:12 | Outpatient (CLI) | END 2017-12-20 16:13 | disposition short-term general hospital (02) | LOC: AMBL 16:12 | PROVIDERS: ATTEND Internal Medicine | DX: R04.0 Epistaxis (principal); W19.XXXA Unspecified fall, initial encounter ==

== ENCOUNTER 2018-01-01 08:38 | Emergency (ER) ==
--- NOTE | 2018-01-01 08:47 | ED.PDOC ---
General ED Provider: Dr. ARIS ARANGO Chief Complaint: Fall Stated Complaint: fall Time Seen by Physician: 08:35 (examined with family and robbin at bedside ) Exam Limitations: No limitations [facility] Nursing and Triage Documentation Reviewed and Agree: Yes Reviewed sepsis parameters & appropriate labs ordered?: Yes System Inflammatory Response Syndrome: Not Applicable Sepsis Protocol: For patient's 13 years and over: Temp is 96.8 and below OR 101 and greater Pulse >90 BPM Resp >20/minute Acutely Altered Mental Status Are patient's symptoms suggestive of a new infection, such as: -Pneumonia -Skin, Soft Tissue -Endocarditis -UTI -Bone, Joint Infection -Implantable Device -Acute Abdominal Infection -Wound Infection -Meningitis -Blood Stream Catheter Infection -Unknown System Inflammatory Response Syndrome: Not Applicable Trauma/Injury Complaint Exam - Trauma Complaint/Exam Location of Pain or Injury: Reports: Other (no pain offered ) Mechanism of Injury: Reports: Fall Onset/Duration: this morning Symptoms Are: Still present Initial Severity: Mild Current Severity: None (hip pain left) Aggravating: Reports: None Alleviating: Reports: Rest Associated Signs and Symptoms: Denies: LOC, Confusion, Memory loss, Lethargy, Vomiting, Bleeding, Bruising, Swelling, Extremity disuse, Painful respiration, Hoarseness, Dysphagia, Hemoptysis, Significant blood loss Penetrating Injury Risk Factors: Reports: None Nexus Low Risk Criteria: No post-midline CS tender, No evidence of intoxicat., No Altered LOC, No focal neuro deficit, No distracting injuries Immobilization Removed Post Exam: No Glascow Coma Scale (see protocol): 15 Differential Diagnoses: Sprain, Strain Review of Systems - Review Of Systems Constitutional: Reports: No symptoms Eyes: Reports: No symptoms Ears, Nose, Mouth, Throat: Reports: No symptoms Respiratory: Reports: No symptoms Cardiac: Reports: No symptoms GI: Reports: No symptoms : Reports: No symptoms Musculoskeletal: Reports: No symptoms Skin: Reports: No symptoms Neurological: Reports: No symptoms Endocrine: Reports: No symptoms Hematologic/Lymphatic: Reports: No symptoms All Other Systems: Reviewed and Negative Past Medical History - Past Medical History Previously Healthy: No (extended care) Endocrine: Reports: Dyslipidemia Cardiovascular: Reports: CAD Respiratory: Reports: None Hematological: Reports: None Gastrointestinal: Reports: Unknown Genitourinary: Reports: Other (Prostate) 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) Musculoskeletal: Reports: Unknown Cancer: Reports: Other (Prostate) - Surgical History General Surgical History: Reports: Other, Pacemaker - Family History Family History: Reports: Unknown - Social History Smoking Status: Never smoker Hx Substance Use: No Alcohol Screening: None Physical Exam - Physical Exam Appearance: Well-appearing, No pain distress, Well-nourished Eyes: DOYLE, EOMI, Conjunctiva clear ENT: Ears normal, Nose normal, Oropharynx normal Respiratory: Airway patent, Breath sounds clear, Breath sounds equal, Respirations nonlabored Cardiovascular: RRR, Pulses normal, No rub, No murmur GI/: Soft, Nontender, No masses, Bowel sounds normal, No Organomegaly Musculoskeletal: Normal strength, ROM intact, No edema, No calf tenderness Skin: Warm, Dry, Normal color Neurological: Sensation intact, Motor intact, Reflexes intact, Cranial nerves intact, Alert, Oriented Psychiatric: Affect appropriate, Mood appropriate Critical Care Note - Critical Care Note Total Time (mins): 0 Course - Course Orders, Labs, Meds: Orders Category Date Time Status CT PELVIS W/O CONTRAST Stat RADS 01/01/18 08:49 Completed Vital Signs: Temp Pulse Resp BP Pulse Ox 01/01/18 08:41 97.6 F 76 16 115/84 100 Departure - Departure Time of Disposition: 10:00 (with ben at bedside ct report given to pt and family. this pt on repeated examination through out his ED presentation denied denined neck and back pain. also all long bone were palpated with ben and family present no pain noted ) Disposition: HOME SELF-CARE Discharge Problem: Hip pain, left Instructions: Arthralgia (ED), Hip Pain (ED) Condition: Good Pt referred to PMD for follow-up: Yes IPMP verified?: Yes Additional Instructions: Please call your Family Physician as soon as possible to schedule a follow-up appointment. Allergies/Adverse Reactions: Allergies codeine Allergy (Verified 11/17/17 07:45) FLUSHING, ITCHING Home Medications: Ambulatory Orders Carvedilol [Coreg] 3.125 mg PO BID 05/23/17 Multivitamin 1 cap PO DAILY 05/23/17
[2018-01-01 08:55] VITALS: BP 115/84; TEMP 97.6; BMI 30.1
--- NOTE | 2018-01-01 09:35 | CT ---
EXAM: CT scan pelvis without contrast HISTORY: Fall left hip pain COMPARISON: None. FINDINGS: Contiguous axial images obtained through the pelvis without contrast utilizing 3-mm collim ation. Sagittal and coronal reconstructions were imaged and reviewed.. Facet arthropathy is seen wi thin the lower lumbar spine. Degenerative changes noted about both hip joints. There is no acute fr acture or dislocation.. There is nonobstructive left-sided nephrolithiasis. There is an IVC filter. There is ASVD without aneurysm. There is an umbilical hernia IMPRESSION: Degenerative changes without acute fracture or dislocation. Left-sided nephrolithiasis
== END 2018-01-01 10:49 | disposition home or self-care (01) ==
LOC: ED 08:38
DX: M25.552 Pain in left hip (principal); W19.XXXA Unspecified fall, initial encounter
CPT/HCPCS: 99283

== ENCOUNTER 2018-01-05 14:21 | Inpatient (IN) | payer OTHER ==
--- NOTE | 2018-01-05 16:18 | US ---
Exam: Fu-scale and color Doppler ultrasonographic evaluation of the left lower extremity venous st ructures. Comparison: Left arm venous evaluation performed on 05/29/2017. Reason for exam: Pain. FINDINGS: There is spontaneous flow with adequate compression and augmentation in the left common fe moral, greater saphenous, profunda, superficial femoral, popliteal, peroneal, posterior tibial, and a nterior tibial veins. Incidental note is made of arterial plaque in the left lower extremity. Impression: 1. No ultrasonographic evidence of thrombus is seen in the imaged portions of the left lower extremi ty venous structures. 2. Incidental finding of arterial plaque in the left lower extremity. Report faxed at [id number] hours on 01/05/2018.
--- NOTE | 2018-01-05 16:57 | CT ---
EXAM: CT of the lumbar spine without contrast History: Lower back pain. Technique: Multiplanar CT images through the lumbar spine were obtained without the administration o f IV contrast Findings: Atherosclerotic vascular calcifications. Partially visualized small right pleural effusio n. 3 mm left renal calculus and 2 mm right renal calculi. No hydronephrosis. Large amount of stool seen distending the rectum. There is mild partially visualized presacral edema. IVC filter. Osteopenia. No acute fracture or subluxation of the lumbar spine. Moderate disc space narrowing at L1-L2 with prominent osteophyte. Mild disc space narrowing seen elsewhere. T12-L1: No significant disc bulge, central canal stenosis or neural foraminal narrowing. L1-L2: Small disc bulge with no significant central canal stenosis or neural foraminal narrowing. L2-L3: Small disc bulge effacing the anterior thecal sac with no significant central canal stenosis. Mild bilateral bony neural foraminal narrowing secondary to ligamentous and facet hypertrophy. L3-L4: Small to modest disc bulge effacing the anterior thecal sac with mild central canal stenosis. Mild to moderate bilateral bony neural foraminal narrowing secondary to ligamentous and facet hyper trophy. L4-L5: Modest paracentral disc protrusion effacing the anterior thecal sac with severe central canal stenosis secondary to ligamentous and facet hypertrophy and prominent posterior epidural fat. Modera te to severe bilateral bony neural foraminal narrowing secondary to ligamentous and facet hypertrophy and question encroachment of the left exiting nerve root. L5-S1: Small disc bulge effacing the anterior thecal sac with no significant central canal stenosis. Mild to moderate bilateral bony neural foraminal narrowing secondary to ligamentous and facet hyper trophy. Impression: 1. No acute osseous abnormality of the lumbar spine. 2. Moderate degenerative disc disease at L1-2. 3. Level by level analysis as detailed above and most significant at L4-L5 with severe central canal stenosis and possible encroachment of the left exiting nerve root. 4. Large amount of stool seen distending the rectum suggesting constipation. 5. Bilateral nephrolithiasis. 6. Small right pleural effusion.
--- NOTE | 2018-01-05 17:30 | CT ---
EXAM: CT pelvis HISTORY: Fall, concern for fracture. Hip TECHNIQUE: CT pelvis without contrast. Multiplanar images provided. FINDINGS: Comparison may be made to 01/01/2018. No acute fracture is identified. Joints are intact. Moderate fecal retention within the rectal vaul t. Vascular calcifications are present. There is no peripheral soft tissue hematoma. Urinary bladd er is intact. No ascites. IMPRESSION: 1. No acute fracture or dislocation. 2. Excess fecal retention within the rectal vault. 3. Vascular calcifications.
--- NOTE | 2018-01-05 17:52 | ED.PDOC ---
General ED Provider: Dr. ARIS ARANGO Chief Complaint: Hip Pain/Injury Stated Complaint: FALL LEFT HIP PAIN Time Seen by Physician: 14:30 (SEEN WITH NURSING STAFF ) Mode of Arrival: Wheelchair Information Source: Patient Exam Limitations: No limitations Primary Care Provider: MATT MCCLAIN Referred to ED by: Other Nursing and Triage Documentation Reviewed and Agree: Yes (NO NEW INJURY) Reviewed sepsis parameters & appropriate labs ordered?: Yes (SEEN 2 DAYS AGO BY CONCHITA HIP CT NEGATIVE ) System Inflammatory Response Syndrome: Not Applicable Sepsis Protocol: For patient's 13 years and over: Temp is 96.8 and below OR 101 and greater Pulse >90 BPM Resp >20/minute Acutely Altered Mental Status Are patient's symptoms suggestive of a new infection, such as: -Pneumonia -Skin, Soft Tissue -Endocarditis -UTI -Bone, Joint Infection -Implantable Device -Acute Abdominal Infection -Wound Infection -Meningitis -Blood Stream Catheter Infection -Unknown System Inflammatory Response Syndrome: Not Applicable Trauma/Injury Complaint Exam - Trauma Complaint/Exam Location of Pain or Injury: Reports: LLE (LEG, PAIN FALL 3 DAYS AGO SEEN BY CONCHITA BROWN ) Mechanism of Injury: Reports: Fall Onset/Duration: 3 DAYS LEFT SIDED HIP PAIN Symptoms Are: Still present (NOT IMPROVED FAMILY CONCERNED) Timing of Treatment: Delayed Initial Severity: Mild Current Severity: Mild Character: Reports: Aching Aggravating: Reports: Weight-bearing, Ambulation Alleviating: Reports: Rest, Immobilization Associated Signs and Symptoms: Denies: LOC, Confusion, Memory loss, Lethargy, Vomiting, Bleeding, Bruising, Swelling, Extremity disuse, Painful respiration, Hoarseness, Dysphagia, Hemoptysis, Significant blood loss Related History: Reports: Similar episode Penetrating Injury Risk Factors: Reports: None Nexus Low Risk Criteria: No post-midline CS tender, No evidence of intoxicat., No Altered LOC, No focal neuro deficit, No distracting injuries Immobilization Removed Post Exam: No Glascow Coma Scale (see protocol): 15 Skin Findings: Present: Normal findings Differential Diagnoses: Fracture, Sprain, Strain Review of Systems - Review Of Systems Constitutional: Reports: No symptoms Eyes: Reports: No symptoms Ears, Nose, Mouth, Throat: Reports: No symptoms Respiratory: Reports: No symptoms Cardiac: Reports: No symptoms GI: Reports: No symptoms : Reports: No symptoms Musculoskeletal: Reports: Back pain, Joint pain (LEFT HIP), Other (LEG PAIN) Skin: Reports: No symptoms Neurological: Reports: No symptoms Endocrine: Reports: No symptoms Hematologic/Lymphatic: Reports: No symptoms All Other Systems: Reviewed and Negative Past Medical History - Past Medical History Previously Healthy: No (extended care) Endocrine: Reports: Dyslipidemia Cardiovascular: Reports: CAD Respiratory: Reports: None Hematological: Reports: None Gastrointestinal: Reports: Unknown Genitourinary: Reports: Other (Prostate) 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) Musculoskeletal: Reports: Unknown Cancer: Reports: Other (Prostate) - Surgical History General Surgical History: Reports: Other, Pacemaker - Family History Family History: Reports: Unknown - Social History Smoking Status: Never smoker Hx Substance Use: No Alcohol Screening: None Physical Exam - Physical Exam Appearance: Well-appearing, No pain distress, Well-nourished Eyes: DOYLE, EOMI, Conjunctiva clear ENT: Ears normal, Nose normal, Oropharynx normal Respiratory: Airway patent, Breath sounds clear, Breath sounds equal, Respirations nonlabored Cardiovascular: RRR, Pulses normal, No rub, No murmur GI/: Soft, Nontender, No masses, Bowel sounds normal, No Organomegaly Musculoskeletal: Normal strength, ROM intact, No edema, No calf tenderness Skin: Warm, Dry, Normal color Neurological: Sensation intact, Motor intact, Reflexes intact, Cranial nerves intact, Alert, Oriented Psychiatric: Affect appropriate, Mood appropriate Interpretation - Radiology Interpretation Radiology Interpretation By: Radiologist Radiology Results: No acute changes Physician Notification - Case Discussed Physician Notified: PMD Time of Notification: 17:53 (WILL ADMITT ) Admit To: Inpatient Critical Care Note - Critical Care Note Total Time (mins): 0 Course - Course Hematology/Chemistry: 01/05/18 15:25 01/05/18 15:25 Orders, Labs, Meds: Lab Review 01/05/18 01/05/18 15:25 15:25 WBC 9.44 RBC 3.88 L Hgb 12.5 L Hct 37.3 L MCV 96.1 H MCH 32.2 H MCHC 33.5 RDW Coeff of Arpit 13.5 Plt Count 248 Immature Gran % (Auto) 0.3 Neut % (Auto) 72.4 Lymph % (Auto) 13.5 [place] % (Auto) 9.3 Eos % (Auto) 4.0 Baso % (Auto) 0.5 Immature Gran # (Auto) 0.0 Neut # 6.8 Lymph # 1.3 [place] # 0.9 Eos # 0.4 Baso # 0.1 Sodium 141 Potassium 4.2 Chloride 107 Carbon Dioxide 29 Anion Gap 9.2 BUN 25 H Creatinine 1.02 Estimated GFR (MDRD) 69.00 BUN/Creatinine Ratio 24.50 Glucose 117 H Calcium 8.8 Total Bilirubin 0.7 AST 19 ALT 12 Alkaline Phosphatase 111 Total Protein 6.5 Albumin 3.1 L Globulin 3.4 Albumin/Globulin Ratio 0.91 Orders Category Date Time Status CBC W/ AUTO DIFF Stat LAB 01/05/18 15:25 Completed COMPREHENSIVE METABOLIC PANEL Stat LAB 01/05/18 15:[address] LUMBAR SPINE W/O CONTRAST Stat RADS 01/05/18 15:[address] PELVIS W/O CONTRAST Stat RADS 01/05/18 16:47 Completed U/S VENOUS SCAN LT. LEG Stat RADS 01/05/18 15:38 Completed Vital Signs: Temp Pulse Resp BP Pulse Ox 01/05/18 14:23 97.2 F L 74 16 140/71 98 Departure - Departure Time of Disposition: 17:53 Disposition: ADMITTED INPATIENT Discharge Problem: Hip pain Instructions: Arthralgia (ED), Hip Pain (ED) Condition: Good Pt referred to PMD for follow-up: Yes IPMP verified?: No Additional Instructions: Please call your Family Physician as soon as possible to schedule a follow-up appointment. Allergies/Adverse Reactions: Allergies codeine Allergy (Verified 01/05/18 14:58) FLUSHING, ITCHING Home Medications: Ambulatory Orders Carvedilol [Coreg] 3.125 mg PO BID 05/23/17 Multivitamin 1 cap PO DAILY 05/23/17 Disposition Discussed With: Patient
[2018-01-05 19:50] VITALS: BMI 26.9
[2018-01-05] MEDS ORDERED: NICODERM 21 MG TD ONE (20:36)
[2018-01-05] MEDS: DESYREL PO SCH (20:39)
[2018-01-05] MEDS: DILAUDID 1 MG/ML SYRINGE IM PRN (20:41)
[2018-01-05] MEDS ORDERED: COREG PO SCH (21:00)
[2018-01-06] MEDS: CALMOSEPTINE OINTMENT TP SCH ×2 (08:08→20:16)
[2018-01-06] MEDS: DESYREL PO SCH ×2 (08:08→20:17)
[2018-01-06] MEDS: COREG PO SCH ×2 (08:08→17:00)
[2018-01-06] MEDS: MULTIVITAMIN TABLET PO SCH (08:08)
[2018-01-06] MEDS ORDERED: NON-FORMULARY MEDICATION (Multivitamin 1 CAP) PO SCH (09:00)
[2018-01-06] MEDS: DILAUDID 1 MG/ML SYRINGE IM PRN (15:04)
[2018-01-06] MEDS: NICODERM 21 MG TD SCH (20:18)
[2018-01-07] MEDS: DILAUDID 1 MG/ML SYRINGE IM PRN (04:10)
[2018-01-07] MEDS: MULTIVITAMIN TABLET PO SCH (09:35)
[2018-01-07] MEDS: CALMOSEPTINE OINTMENT TP SCH ×2 (09:36→21:08)
[2018-01-07] MEDS: COREG PO SCH ×2 (09:36→16:45)
[2018-01-07] MEDS: DESYREL PO SCH ×2 (09:36→21:09)
[2018-01-07] MEDS: NICODERM 21 MG TD SCH (21:09)
[2018-01-08] MEDS: CALMOSEPTINE OINTMENT TP SCH (08:03)
[2018-01-08] MEDS: MULTIVITAMIN TABLET PO SCH (08:04)
[2018-01-08] MEDS: DESYREL PO SCH (08:04)
[2018-01-08] MEDS: COREG PO SCH (08:04)
--- NOTE | 2018-01-08 08:44 | HP ---
CHIEF COMPLAINT: Pain, Hips. HISTORY OF PRESENT ILLNESS: The patient last 01/01/18 was found in the floor by his sitter. He does have a sitter that helps him during the day but not during the night. Information was given that he walking at 3:00am. The patient was no longer able to walk and was seen at the emergency room on 01/01/18. The patient had a CT of pelvis and no acute fractures were noted. There was degenerative changes not unexpected. The patient also has an IVC filter. The patient was brought back by the daughter to emergency room on 01/05/18. The sitter mentioned that the patient is not longer able to walk or stand on his own, still was complaining of pain. The pain is mostly in the back as well as the area on the hip. This patient has senile dementia and his answers are variable. The emergency room physician felt that he needed to be in the hospital for the pain and so I did go to the emergency room to see the patient. I did exam the patient has his lower extremities are same length and there is no inversion and eversion of either foot. Range of motion of the hips does not cause any pain based upon the facial expression. A CT scan of the lumber spine was ordered by the emergency room physician and I did not have report and I did order a repeat. The repeat pelvis CT to include both hips does not show any fracture. CT scan of the lumbar spine showed no acute scott disease or fractures. The patient was then admitted to the hospital and the family has now considered changing residence from Assisted Living to the [facility]. PAST PERSONAL HISTORY: The patient DVT plus pulmonary emboli IVC Filter Admitted to the hospital to the hospital because of vomiting and diarrhea resolved without any intervention. Spontaneous subdural hematoma evacuated surgically Type 2 Diabetes Mellitus on medication Senile dementia progressive since 2008 Atrial fibrillation with pacemaker Prostatic carcinoma operated Inguinal hernia repair Cardiac catheterization with coronary angioplasty and stent History of pneumonia in the past requiring admission Bilateral venous insufficiency with some dermal discoloration both lower extremities Both tibial pulses having been absent in the past FAMILY HISTORY: Mother had CVA and cerebral tumor plus diabetes mellitus Father had chronic obstructive lung disease SOCIAL HISTORY: The patient is a and resides at [facility] in [facility]. No tobacco or alcohol use. Family is very supportive of him. He does have a sitter during the day. MEDICATIONS: Multivitamin one daily Carvedilol 3.125mg twice a day Trazodone 50mg twice a day ALLERGIES: Codeine Zyprexa REVIEW OF SYSTEMS: CONSTITUTIONAL: The patient had no fever and no chills. No very well able to follow verbal commands. The rest of the symptoms review is difficult and symptoms are provided by the sitter. She claims that the patient is not able to stand anymore nor walk since the fall. He complains of pain mostly in the hips and back according to the sitter. PHYSICAL EXAMINATION: GENERAL: 87 year old male soon to be 88 was admitted to the hospital for further observation and treatment of pain after the fall. This patient has senile dementia progressive and is not oriented to time, space or situation. There is some question whether he is also oriented to person except for the close members of the family. VITAL SIGNS: Temperature 97.2, pulse 74, blood pressure 140/71, respiratory rate 16, oxygen saturation 98% at room air. He is 5'11" 193 pounds and 2.5 ounces. HEAD: Yovany hole for evacuation of subdural hematoma otherwise unremarkable. Scalp no active dermitis. FACE: Symmetrical and equal with no facial weakness and no facial expression with pressure upon the frontal maxillary sinus area. EYES: Pupils equal/reactive to light. About 3mm in size. Conjunctivae not pale. Sclerae not icteric. MOUTH: Unremarkable THROAT: No inflammation, tumors or exudate. NECK: No masses. No bruit. No tenderness. No rigidity. No Jugular venous pulsations noted at near supine posture. CHEST: Symmetrical and equal with good expansion. Pacemaker a generator in the left upper anterior chest. No tenderness to palpation. LUNGS: Breath sounds are heard in both sides. Diminished with rales at both bases. No wheezing. HEART: Audible and regular with good tones. No murmurs. Not tachycardiac. ABDOMEN: Protuberant, Soft with no remarkably tenderness. No guarding, no mass palpable, Bowel sounds are active. No bruit. EXTERNAL GENITALIA: Not examined RECTAL: Not done, it was done several months ago when this patient had limited sigmoidoscopy because of the irregularity that I could feel on rectal examination and there no was tumor or any abnormalities noted beyond the distance of my finger. UPPER EXTREMITIES: Symmetrical and equal ASSESSMENT: 1. Pain, bilateral hip area secondary to fall no fractures per clinically examination and CT of pelvis and hips times two. 2. Increasing weakness, no longer able to walk on his own or stand 3. Senile Dementia, severe 4. Peripheral arterial disease absent all tibial pulses 5. History of DVT and pulmonary emboli with IVC filter 6. Type two diabetes mellitus 7. Atrial fibrillation with pacemaker defibrillator 8. History of prostatic carcinoma status post surgery 9. History of inguinal hernia repair 10.History of coronary artery disease,status post cardiac catheterization angioplasty plus stent 11.History of subdural hematoma, spontaneous operated 12.History of degenerative disc disease, lumbar spine PLAN: 1. This patient will be referred to PT and OT. See if he can get any better. He would probably have to continue on the physical therapy after his discharge from this facility. 2. I did talk to Cely, the daughter, since she mentioned that they will bring him to the detention at [facility]. I did tell her that we would start with the papers coming Monday. LUCIA
--- NOTE | 2018-01-08 10:03 | PN ---
DATE OF VISIT: 01/07/18 The patient is alert and much more cheerful. He seemed to be eating his food without assistance and doing well. He still recognized me, which he did also yesterday and called my name. I did tell him that I would see him again tomorrow and he did ask me what time I would see him and I told him noon and he repeated that. He seemed to have a better cognition. VITAL SIGNS: Today, 01/07/18, showed a temperature of 97.5, pulse 84, blood pressure 141/73, respiratory rate 20, oxygen saturation 92 at room air. He had been 97 and 97 previously. It probably was not placed correctly. The patient does not have any respiratory distress and his color is good. LUNGS: Again, has diminished breath sounds in both sides. HEART: Audible and somewhat irregular. ABDOMEN: Protuberant with no remarkable tenderness. No guarding. Bowel sounds are active. No masses palpable. His oxygen saturation at room air is good between 96 and 98. This patient is receiving Nicotine CQ 21 mg daily. MTDD
--- NOTE | 2018-01-08 10:08 | PN ---
DATE OF VISIT: 01/06/18 The patient today is alert and cheerful and did call my name and recognized me as soon as I walked in. He had not done that as far as I knew for some time. He looks much better. VITAL SIGNS: At 10 o'clock on 01/06/2018 showed a temperature of 97.5, pulse of 103, blood pressure 115/63, respiratory rate 18, oxygen saturation 94 at room air. LUNGS: Again, with diminished breath sounds, but no rales. HEART: Audible and irregular. ABDOMEN: Protuberant, soft with no remarkable tenderness. No masses and no bruit. LEGS: Still has some edema. MTDD
[2018-01-08] MEDS: DILAUDID 1 MG/ML SYRINGE IM PRN (11:39)
[2018-01-08 15:19] VITALS: BP 151/84; TEMP 97.2
--- NOTE | 2018-01-11 11:37 | DS ---
PATIENT IDENTIFICATION: 88 year old male who is a resident at an assisted living and has a sitter during the daytime. HOSPITAL COURSE: The patient last 01/01/2018, was found in the floor by the sitter. He was brought to the emergency room because of the pain and the x-rays, CT scans showed no obvious abnormalities and so the patient was discharged back to the assisted living. The patient was brought back again to the emergency room on 01/05/2018 because of pain according to the sitter and seconded by the daughter. I saw the patient in the emergency room after the emergency room doctor had seen him and the physical examination revealed no obvious significant abnormalities in the hips or any place else in his body. There are no areas of ecchymosis. Both lower extremities are of the same length and the foot is not averted on inverted. ER MD had already ordered a CT scan of the lumbar spine and I did add to repeat the CT scan of the pelvis including both hips. All of these examinations were negative for any acute abnormalities such as fracture. Because of the pain, this patient was admitted to the hospital for further observation and control of the pain if necessary. The daughter told me also that they had already contacted [facility] for a placement for him. Significant past history consisted of spontaneous subdural hematoma evacuated surgically, type II diabetes mellitus, progressive senile dementia since 2008, atrial fibrillation with a pacemaker, plus medication, prostatic carcinoma, operated, inguinal hernia surgery, cardiac catheterization with coronary angioplasty and stent, pneumonia in the past requiring admission to the hospital , bilateral venous insufficiency with dermal discoloration secondary to insufficiency, peripheral arterial disease with absent tibial pulses. Mother had CVA, cerebral tumor, plus diabetes mellitus. Father had COPD. The patient while in this hospital was placed near the nurses station with a bed alarm. His temperature had remained normal throughout his hospital stay and his pulse had fluctuated somewhat, but beyond 100 and the blood pressure also had some fluctuations, but near control. Oxygen saturation had fluctuated between 96 to 99 at room air. Respiratory rate was 16 to 20, normal. CBC and chemistry essentially normal, except for and elevated BUN 25. Albumin is 3.1, low. The patient was continued on his medications consisting of Trazodone, Carvedilol, Calmoseptine and Multivitamin. The patient also was prescribed Dilaudid 1 mg per cc 1/2 cc IM every 6 hours prn. The patient also was given NicoDerm CQ 21 mg daily. The patient on the following day was alert and remembered my name. He never tried to get out of bed as far as I know. He was more cheerful and remained so until discharge. His temperature throughout his hospital stay had remained normal and his blood pressure is fluctuating, but slightly above normal or upper limits of normal. The patient at the time of discharge is alert, responsive with movement of all extremities and no cyanosis. LUNGS: Clear to auscultation, but diminished. HEART: Normal sinus rhythm. ABDOMEN: Protuberant, soft with no remarkable tenderness. RECTAL: Not done. LOWER EXTREMITIES: Some edema of both legs, probably positional. FINAL DIAGNOSES: 1. PAIN, BILATERAL HIPS AND LOWER BACK SECONDARY TO FALL AND NEGATIVE FOR FRACTURE 2. SENILE DEMENTIA 3. PERIPHERAL ARTERIAL DISEASE, ABSENT TIBIAL PULSES 4. HISTORY OF DVT AND PULMONARY EMBOLI WITH IVC FILTER 5. TYPE II DIABETES MELLITUS 6. HISTORY OF ATRIAL FIBRILLATION WITH PACEMAKER DEFIBRILLATOR 7. HISTORY OF PROSTATIC CARCINOMA, STATUS POST SURGERY 8. HISTORY OF INGUINAL HERNIA REPAIR 9. HISTORY OF CORONARY ARTERY DISEASE 10. STATUS POST CARDIAC CATHETERIZATION, ANGIOPLASTY AND STENT APPLICATION 11. HISTORY OF SUBDURAL HEMATOMA EVACUATED. PROGNOSIS: Poor. MTDD
== END 2018-01-08 17:00 | DRG 556 ==
LOC: ED 14:21 → MEDSURG B 18:09
PROVIDERS: ADMIT General Practice; ATTEND General Practice
DX: M25.552 Pain in left hip (principal); M25.551 Pain in right hip; R26.2 Difficulty in walking, not elsewhere classified; W18.30XA Fall on same level, unspecified, initial encounter; Y93.9 Activity, unspecified; Y92.099 Unspecified place in other non-institutional residence as the place of occurrence of the external cause; M54.5 Low back pain; F03.90 Unspecified dementia, unspecified severity, without behavioral disturbance, psychotic disturbance, mood disturbance, and anxiety; Z86.73 Personal history of transient ischemic attack (TIA), and cerebral infarction without residual deficits; Z85.46 Personal history of malignant neoplasm of prostate; I25.10 Atherosclerotic heart disease of native coronary artery without angina pectoris; R53.1 Weakness; I73.9 Peripheral vascular disease, unspecified; E11.9 Type 2 diabetes mellitus without complications; I48.91 Unspecified atrial fibrillation; Z95.0 Presence of cardiac pacemaker; I87.2 Venous insufficiency (chronic) (peripheral)
CPT/HCPCS: 36415; 80053; 85025; 99223; 99232; 99239; 99284

== ENCOUNTER 2018-01-17 13:38 | Outpatient (CLI) | payer OTHER ==
--- NOTE | 2018-01-17 14:50 | CT ---
EXAM: CT head without contrast. HISTORY: Hemiplegia. COMPARISON: 09/20/2017. TECHNIQUE: Multiple axial images of the brain were obtained from the skull base through the vertex w ithout intravenous contrast. Multiplanar reformats were provided. FINDINGS: There is no intracranial hemorrhage or extraaxial collection. The cam-white differentiat ion is maintained without evidence for acute large vascular territory infarction. Encephalomalacia n oted in both cerebellar hemispheres and the left frontal and posterior parietal/occipital lobes. Ther e are areas of periventricular and subcortical white matter low attenuation. The cortical sulci and cerebral ventricles are symmetrically enlarged. The basal cisterns are well visualized. There is no hydrocephalus, mass effect, or midline shift. The paranasal sinuses and mastoid air cells are clear . The calvarium is intact save for old left parietal radha hole. Atherosclerotic calcifications are present. Since the prior study, there has been no significant interval change. IMPRESSION: 1. No acute intracranial abnormality. 2. Stable areas of encephalomalacia. 3. Chronic small vessel ischemic changes and atrophy.
== END 2018-01-17 13:39 | disposition home or self-care (01) ==
LOC: RAD 13:38
PROVIDERS: ATTEND General Practice
DX: G81.91 Hemiplegia, unspecified affecting right dominant side (principal)

== ENCOUNTER 2018-01-18 10:28 | Inpatient (IN) | payer OTHER ==
[2018-01-18 11:27] VITALS: BMI 27.2
--- NOTE | 2018-01-18 11:59 | DI ---
EXAM: Chest two view, frontal and lateral views. HISTORY: Cough. COMPARISON: 11/17/2017. FINDINGS: Left-sided pacemaker noted. Cardiac silhouette is enlarged. Increased interstitial yuli ngs in both lungs, greater in the bases. Blunting of the right costophrenic angle noted. No pneumot horax identified. Degenerative changes present in the spine. IMPRESSION: Suspect mild pulmonary edema.
--- NOTE | 2018-01-18 12:12 | CT ---
EXAM: CT of the head without contrast History: Right arm weakness, slurred speech. Comparison: Head CT 01/17/2018 Technique: Multiplanar CT images through the head were obtained without the administration of IV con trast Findings: The visualized paranasal sinuses and mastoid air cells are clear in general. No acute sawyer varial abnormalities. Intracranially there are atherosclerotic vascular calcifications. Stable atrophy. No midline shift. No hydrocephalous. No acute intracranial hemorrhage or abnormal extraaxial fluid collections. No change in the periventricular and subcortical white matter hypodensities and no change in the areas o f encephalomalacia within the bilateral cerebellar hemispheres and within the left frontal lobe as we ll as the left parietal occipital lobe. Impression: 1. No acute intracranial hemorrhage. 2. Chronic small vessel ischemic disease and atrophy. 3. 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 Please note that CT is insensit nell for the detection of acute brain infarction. If there is concern for stroke, recommend correlati on with brain MRI.
[2018-01-18] MEDS ORDERED: LASIX IVP STA (13:26)
[2018-01-18] MEDS ORDERED: COREG PO SCH (21:00)
[2018-01-19] MEDS ORDERED: NORCO 5-325 PO STA (07:16)
[2018-01-19] MEDS: COREG PO SCH ×2 (10:00→16:42)
--- NOTE | 2018-01-19 13:58 | RS.BEDDYS ---
Subjective Number of treatment sessions: 1 Date of Evaluation: 01/19/18 Date of Onset/Injury/Change in Status: 01/18/18 Treatment Diagnosis: Slurred speech, flaccid right arm Current Level of Function: This 87 year old male presented at the bedside with right arm weakness, severe difficulty with spontaneous speech, moderate-severe difficulty with swallowing, confusion, and poor mental status. At the bedside the patient demonstrated a yes bias to subjective and objective simple questions. He followed directions primarily with tactile cues regarding his body. However he could not complete tasks on demand, i.e. open your mouth, show me your tongue. He had appropriate eye gaze for approximately 3-20 seconds. The patient could locate the speaker in the room, and showed limited neglect to right side. With speech tasks, he could count to 4 when given a model. Swallowing concerns were identified, however due to his alertness, he is at a high risk for aspiration. Current Diet: mechanical soft and nectar thick was his diet at the time of the evaluation. ALLOCATIONS CLERK changed his diet to puree with honey-thick liquids. Current Subjective/complaints:: The patient could not verbalize any complaints. He did answer "no" when asked if he was hungry. He could orient to person 100% of the trials. Nursing reported some aggitation, however it was not evidenced during the swallowing evaluation. He had limited alertness, maintaining eye contact and eye gaze for approximately 3-20 seconds, if presented questions or tactile cues. Medical History Comments:: CVA, TIA, HTN. Hx Home Medications: refer to medications for complete current list. Patient's Goals: MD reported pt to have safest and least restrictive diet texture. Nursing staff reported pt may be placed on hospice at return to LTC. General Information - General Patient Orientation: Person Ability to Follow Directions: Poor Oral Expression Ability: Moderate Impairment Oral-Facial Assessment - Face Facial Symmetry: Right Droop (minimal droop in neutral position) Facial Movement: Involuntary (Could not move on command) - Dental/Labial Lips Comment: Adequate labial seal, no lip movement on command. - Lingual Comments: No lingual movement on command. Deviation with automatic movements. - Comments/Additional Info. Comments:: No oral motor examination was completed. Pt could not imitate or respond to commands with a model or tactile cues. ice chip stimulation completed for labial and lingual movement which demonstrated minimal asymmetry/ deviation. oral mechanism were not completely examined. ALLOCATIONS CLERK attempted to open oral cavity, however pt maintained a tight mandible reducing visibility. It appeared pt had own teeth. Bad breath was noted. Food Presentation - Solids Food Presented: Pureed (1/4 and 1/2 teaspoon) Behaviors/Comments: Pt responded to spoon and opened mouth for food presentation. Presented midline, pt did not clear texture from spoon. mild- moderate delay in a-p transfer and swallow initiation. Did require two swallows with 1/2 teaspoon bite size. - Liquids Liquid Presented: [place] (Via 1/4 and 1/2 teaspoon) Behaviors/Comments: Pt O2 at 97 at presentation of liquids. Dropped to 92 during trials. Moderate-severe delay of 5-6 seconds to initiate a swallow response. Multiple swallows followed with a 3 second delay. Liquid Presented: Honey (Via 1/2 teaspoon.) Behaviors/Comments: Adequate response to spoon presentation. Moderate delay in swallow initiation of 5 seconds with honey-thick. 1x multiple swallow. No change in respirations/o2. - Recommendations: Dysphagia Evaluation Dietary Recommendations: Dysphagia Pureed, Honey-thick liquids Comments:: All food and liquid to be presented at midline with a spoon. Complete dependent for feeding at this time. 1:1 feeding and all PO intake with strict supervision. Pt at high risk for aspiration due to swallow delay and level of alertness. Dysphagia Swallow Precautions/Strategies: Sitting Upright (90 deg), No Straw, Liquids from Spoon Comments:: Food and liquid both presented in 1/2 teaspoon size bites. Wait to see a swallow response prior to presenting another bite or drink. Do not feed if patient is not alert or able to verbalize after each bite. - Summary Dysphagia Evaluation Summary: Pt presents with moderate-severe oropharyngeal dysphagia. Pt not able to complete commands with oral cavity. Pt had automatic responses to the spoon presented. Adequate labial seal on spoon, however did not clear entire texture/consistency presented. Poor A-P transfer of bolus with a moderate-severe delay in swallow initiation. Visible difficulty with initiating swallow was observed. Pt at high risk for aspiration. All PO intake needs to be presented with 1/2 teaspoon size bite or drink. 1:1 supervision and watch for a swallow response after each trial before presentation of next trial. D/C feeding if any change in lung status or overt s/s of aspiration are noted at the bedside. Further Therapy Indicated?: Yes Comments: Further therapy to be completed depending on family's response. Rehab Potential: Fair Functional Reporting G Codes: Swallowing Current CL, Goal CK Severity Impairment Rationale: Pt on honey thick and puree diet texture. Poor resopnse with swallow initiation. Plan Duration of Treatment: 1 Week Frequency of Treatment: 1-2x Anticipated Discharge Destination: [facility] Comments: Goals to be determined at next visit. If pt can maintain appropriate alertness level, a dysphagia study will be completed. - Treatment Code (1) Oropharyngeal dysphagia Code(s): R13.12 - DYSPHAGIA, OROPHARYNGEAL PHASE
[2018-01-19] MEDS ORDERED: LASIX IVP STA (17:28)
[2018-01-19] MEDS ORDERED: INFUVITE ADULT 10 ML in D5%-1/2NS-KCL 20 MEQ/L IV SOL 1,000 ML IV SCH ×4 (19:00)
[2018-01-19] MEDS ORDERED: INFUVITE ADULT IV ONE (19:06)
[2018-01-20] MEDS: COREG PO SCH ×2 (10:33→18:50)
[2018-01-20] MEDS ORDERED: LASIX IVP STA (10:56)
[2018-01-20] MEDS: TRANSDERM-SCOP 1.5 MG PATCH TD SCH (11:11)
[2018-01-20] MEDS ORDERED: DECADRON 4 MG/ML SDV ONE (16:15)
[2018-01-20] MEDS: DECADRON 4 MG/ML SDV IVP SCH ×2 (17:08→21:54)
[2018-01-20] MEDS ORDERED: INFUVITE ADULT IV ONE (17:16)
[2018-01-20] MEDS: DILAUDID 1 MG/ML SYRINGE IVP PRN (17:17)
[2018-01-20] MEDS: INFUVITE ADULT 10 ML in D5%-1/4NS-KCL 20 MEQ/L IV SOL 1,000 ML IV SCH (18:44)
[2018-01-21] MEDS: DECADRON 4 MG/ML SDV IVP SCH ×4 (04:17→22:17)
[2018-01-21] MEDS: COREG PO SCH ×2 (09:45→17:14)
[2018-01-21] MEDS: DILAUDID 1 MG/ML SYRINGE IVP PRN ×2 (11:40→16:16)
[2018-01-21] MEDS ORDERED: INFUVITE ADULT IV ONE (16:48)
[2018-01-21] MEDS: INFUVITE ADULT 10 ML in D5%-1/4NS-KCL 20 MEQ/L IV SOL 1,000 ML IV SCH ×2 (17:03→22:18)
[2018-01-21] MEDS ORDERED: ROCEPHIN 2 GM in SODIUM CHLORIDE 100 ML IV SCH (21:30)
[2018-01-21] MEDS ORDERED: ROCEPHIN ONE (22:13)
--- NOTE | 2018-01-21 22:27 | DI ---
EXAM: AP single view of the chest. HISTORY: Cough. FINDINGS: There is a single lead pacemaker. The bones are unremarkable. The cardiac silhouette is e nlarged. The pulmonary vasculature is within normal limits. The costophrenic angles are clear. No i nfiltrate or consolidation. There are calcified granulomas. Impression: Cardiomegaly.
[2018-01-22] MEDS: DECADRON 4 MG/ML SDV IVP SCH ×4 (04:24→22:19)
[2018-01-22] MEDS: COREG PO SCH ×2 (08:33→16:53)
--- NOTE | 2018-01-22 10:23 | DI ---
EXAM: Fluoroscopic dysphagia gram HISTORY: History of stroke and concern for aspiration. COMPARISON: Chest x-ray 01/21/2018 FINDINGS: Fluoroscopic evaluation was performed to with the speech pathology. Multiple consistencies were administered to patient and real time evaluation was performed. There is no visualized aspirat ion. IMPRESSION: No visualized aspiration. For full details please see note of speech pathology.
--- NOTE | 2018-01-22 14:26 | PN ---
DATE OF VISIT: 01/21/18 SUBJECTIVE: The patient today, 7 p.m., was alert and responsive. I called his name and he opened his eyes briskly. He was laying on his right side. His temperature now is 97.9 orally, pulse 90, BP 91/66, respiratory rate 18, oxygen saturation 93 on room air. I did advise the nurses to give him one liter of oxygen nasal. We did a chest x-ray, portable, as well as blood culture, sputum culture and gram stain. Gave medications for what may be hospital acquired pneumonia but unlikely as I do think it is due to aspiration pneumonia not necessary hospital acquired. He ate a little bit about 25%. OBJECTIVE: LUNGS: Still has rales. HEART: Audible and regular most of the time. He does have some irregularity. This patient had been on atrial fibrillation previously but he had spontaneous cerebral bleed that no anticoagulant had been prescribed for him. [facility]
--- NOTE | 2018-01-22 14:32 | PN ---
DATE OF VISIT: 01/20/18 SUBJECTIVE: The patient at 6 p.m. on 01/20/18 showed a temperature of 102.0 axillary, pulse 115, BP 134/78, respiratory rate 18, oxygen saturation 90 on room air. The patient had rales in both bases. The patient is more lethargic today. He groans but doesn't open his eyes. The son and daughter were present. His condition has deteriorated and is more lethargic now. His right hand still has weakness. He may have some weakness on the right leg but it is hard to quantitate. I told the son and daughter that I will try to give him Decadron and see if this would improve. I do think that the lethargy is secondary to the edema of the brain secondary to the cerebrovascular accident. The CVA however is not visualized with the CT scan including the repeat. This patient is kept for the dysphagia study this coming Monday. I told the son and daughter that if he still is very lethargic that he is not able to swallow anything, that the dysphagia will be canceled. Decision to cancel will be done on Monday depending upon the status of his sensorium. This patient may have an aspiration pneumonitis. MTDD
--- NOTE | 2018-01-22 14:55 | PN ---
DATE OF VISIT: 01/18/17 - ADMITTING NOTE SUBJECTIVE: The patient is a resident of [facility] had experienced some numbness of the right hand. I had asked questions whether the patient had some speech problems or facial deformities or others but those were negative. The patient had more problem the next day so the patient was seen at the office on along with his son Slava. In the course of examination the patient indeed had weakness of the right upper extremity. He was able to lift his right arm at about 90 degrees but he is not having any movement at the right wrist. CT scan of the head was done showing no acute intracranial processes. The patient's motor weakness of the right upper extremity has increased and so I advised admission to the hospital and the patient's family was informed to which hospital they would like to go for admission at [facility] or in [facility] or [facility]. They chose to be admitted to [facility] and so he was admitted. The patient, at the time of my examination, was alert and somewhat unresponsive , slightly lethargic. He still has some motor function of the right upper extremity but less than yesterday. He has good motor function of the left. Motor function of the lower extremities is good. The patient was not as alert as when he was discharged from this facility lately. Cely, his daughter, was in the room this evening when I came to examine him again and she told me that the family would like for him to be just discharged back to the longterm under hospice. Cathryn Bowerslawrence, which is their [id number] and also a nurse practitioner felt that this would probably be a better route for him so they would not have to bring him back and forth to the hospital. She also would not like to pursue an MRI. I told Cely that we could not do an MRI here in this facility for him. They do not want any MRI and they realize that there is nothing that could be done to him as far as medication. This patient had a subdural hematoma as well as spontaneous bleed previously. The patient's BNP was slightly high and the chest x-ray showed some possible findings compatible with congestive heart failure and this patient was given 40 mg of Lasix intravenously. MTDD
--- NOTE | 2018-01-22 14:57 | RS.MODBRM ---
Subjective Number of treatment sessions: 2 Date of Evaluation: 01/19/18 Treatment Diagnosis: right side flaccid, confusion, swallow/speech difficulty Current Level of Function: This 87 year old male presented with improvements with speech and swallow since initial evaluation on 01/19/18. Hx of multiple TIAs and fall had major impacts on his speech and swallow function. At time of admission to the hospital pt appeared with stroke symptoms. CAT scan revealed no changes, however pt presented with right side flaccid arm, difficulty speaking and swallowing, and minimal alertness. Pt had spontaneous recovery over two days, improving alertness, recpetive and expressive language, and swallow function. Modified barium swallow study was completed to r/o aspiration and determine safest and least restrictive diet. Current Diet: puree texture and honey-thick liquids Current Subjective/complaints:: The patient did not report any symptoms or difficulty with current speech or swallow function. Nursing staff and pt's caregiver reported all changes which included, speech and swallow function. Caregiver stated he had a decline with ability to feed himself, swallowing food , asking appropriate questions, responding to simple questions, and following commands. This had improved since the hospital admission, however the patient still requires max assistance with all of these tasks, which was not his prior baseline. Nursing had reports of multiple swallow attempts, poor appetite, slurred speech, or difficulty initiating speech utterances, and inconsistency with speech responses. Medical History Comments:: TIA, CVA, HTN Hx Home Medications: Refer to medications for complete and current list. Patient's Goals: MD wants pt to have safest and least restrictive diet texture. Food Presented Thin Liquid: spoon (2x with 1/2 and 1 tsp size) [place] Liquid: spoon (3x with one trial 1/2 tsp and two trials with 1 tsp.) Other:: Luc cracker-soft texture over one trial. Oral Phase - Oral Phase Labial Closure: Mild Impairment Bolus Formation: Mild Impairment Mastication: Moderate Impairment Lingual Movement: Mild Impairment A/P Propulsion: Moderate Impairment Premature Vallecular Pooling: Coating Oral Residue: Coating Comments:: Weakness and poor coordination with oral structures which can be attributed to alertness and recent physical change. Spontaneous improvements noted since bedside evaluation. Pharyngeal Phase Pharyngeal Response: Moderate Impairment Base of Tongue: Moderate Impairment Epiglottic Movement: Mild Impairment Laryngeal Excursion: Mild Impairment Vallecular Residue: Scant Pyriform Residue: Scant Comments:: Decreased sensation noted with pharyngeal response. Pt required verbal cues to swallow at times when moderate residue or bolus was present on base of tongue or pooling in valleculae. Delay in swallow initiation increases patient's risk for aspiration. Summary and Recommendations - Recommendations PO Diet: Mechanical Soft, [place]-Thick Liquids, Teaspoon Sips ONLY-- NO STRAWS or CUP SIPS Comments:: Pt presented with mild oropharyngeal dysphagia. Pt demonstrated mild- moderate difficulty with swallow function due to decreased sensation and awareness of bolus. Pt required verbal cues to swallow when presented all sizes of boli and consistencies. Pt safest with nectar thick due to moderate delay in swallow initiation. However no penetration or aspiration was noted on MBSS with nectar thick or thin liquids. To decrease risk for aspiration and penetration, nectar thick was recommended with all meals. Pt can tolerate tsp of thin liquids presented via spoon with 1:1 supervision, post adequate oral care. Further Therapy Indicated?: No Functional Reporting G Codes: Swallowing current -CK, D/C-CK Severity Impairment Rationale: Pt is on mechanical soft and nectar thick liquids. Plan Duration of Treatment: One Time Treatment Anticipated Discharge Destination: [facility] Comments: Pt will be d/c to LTC facility. DIRECTOR OF CARDIOLOGY SERVICE LINE recommends to have supervision with all PO intake. Monitor lung sounds. Complete strict oral care routine post meals and prior to laying flat in bed. Present mechanical soft diet texture with nectar thick liquids via tsp for all PO intake. Medications crushed in pudding/applesauce. Yane free-water protocol can be utilized if followed appropriately. Pt is at risk for aspiration due to decreased sensation and delay in swallow initiation with all PO intake. - Treatment Code (1) Oropharyngeal dysphagia Code(s): R13.12 - DYSPHAGIA, OROPHARYNGEAL PHASE
--- NOTE | 2018-01-22 16:33 | RS.PTINEVL ---
Subjective - Patient information Date of Evaluation: 01/22/18 Date of Arrival on Unit: 01/18/18 Admitted From:: [facility] Diagnosis: CVA Usual Living Arrangement: [facility] Home Environment: Level/No stairs Medical History: Hypertension, CVA/TIA Medical History Comments:: encephalopathy, pulmonary edema LATEX ALLERGY?: No Surgical History Comments:: craniotomy, cardiac stent, pacemaker Medications: see chart Subjective Information/ Patient Comments:: pt's caregiver states he was amb prior to CVA with assist at longterm. pt answers questions only occasionally. - Level of function Prior to this admission, the patient could do the following:: Partially Dependent Ambulation Current Level of Function: Dependent Current Equipment Used at Home: rwx Interventions - Objective Patient Orientation: Person (pt oriented to person only) Current Interventions: IV's, Oxygen, Telemetry Range of Motion - ROM Right Upper Extremity AROM: WFL's Left Upper Extremity AROM: WFL's Right Lower Extremity AROM: WFL's Left Lower Extremity AROM: WFL's Muscle Strength - Muscle Strength Right Upper Extremity Strength: Severe Weakness (pt with no active movement noted in RUE) Left Upper Extremity Strength: Mild Weakness (approx 3/5 as noted by ROM, pt unable to follow commands for MMT) Right Lower Extremity Strength: Severe Weakness (as noted by ROM 2+ to 3-/5 difficult to MMT due to unable to follow commands) Left Lower Extremity Strength: Mild Weakness (atleast 3/5 as noted by ROM) Sensation - Sensation Right Upper Extremity Sensation: Impaired Right Lower Extremity Sensation: Impaired Comments: RUE noted neglect, difficult to assess sensation due to cognitive deficits. Palpation Palpation Findings: None/Normal Balance - Sitting Balance and Reactions Static Sitting Balance: Poor Dynamic Sitting Balance: Zero Sitting Equilibrium Reactions: Delayed Left, Absent Right Sitting Protective Reactions: Delayed Left, Absent Right - Comments Balance Assessment Comments: unable to stand. pt unable to maintain static sitting balance leaning to R Functional Mobility - Bed Mobility Rolling R/L: Max Assist, 1 person assist Scooting: Max Assist, 2 person assist Supine to Sit: Max Assist, 2 person assist Sit to Supine: Max Assist, 2 person assist - Transfers Comments:: unable to stand - Safety Awareness Safety Awareness: Poor Treatment time - Time with patient Total treatment time: 26 Patient Education - Education Teaching Recipient: Primary Caregiver (Discussed with caregiver and RN that do not feel pt is appropriate for PT at this time.) Teaching Methods: Discussion Assessment - Assessment Problem List:: Decreased level of function, Decreased safety/Risk of falls, Weakness, Cognitive status limits abilities Rehab Potential: Poor Further Therapy Indicated?: No Comments: Feel pt is not appropriate for skilled PT at this time due to unable to follow commands, requires max assist of 2 for all bed mobility and transfers. Feel pt has poor rehab potential at this time. Feel pt would benefit from being transferred to chair with mechanical lift. Evaluation Complexity: HISTORY: Medium (HTN, CVA, age), EXAM OF BODY SYSTEMS: Medium (musculo, neuro, cogntition), CLINICAL PRESENTATION: High (unstable due to cognitive deficits), CLINICAL DECISION MAKING: Medium Short Term Goals GOAL #1: . GOAL #2: . Comments:: . Assisted Goals GOAL #1: . GOAL #2: . GOAL #3: . Plan Other:: eval only Frequency of Treatment: One time treatment Duration of Treatment: One Time Treatment Anticipated [facility]charge Dest[facility] Has the Physician been added for Co-signature?: Yes
[2018-01-22] MEDS: DILAUDID 1 MG/ML SYRINGE IVP PRN (16:52)
[2018-01-22] MEDS: ROCEPHIN 2 GM in SODIUM CHLORIDE 50 ML IV SCH (20:40)
[2018-01-23] MEDS: DILAUDID 1 MG/ML SYRINGE IVP PRN ×3 (00:14→22:58)
[2018-01-23] MEDS ORDERED: INFUVITE ADULT IV ONE (04:18)
[2018-01-23] MEDS: INFUVITE ADULT 10 ML in D5%-1/4NS-KCL 20 MEQ/L IV SOL 1,000 ML IV SCH ×2 (04:25→06:16)
[2018-01-23] MEDS: DECADRON 4 MG/ML SDV IVP SCH ×4 (05:53→21:41)
--- NOTE | 2018-01-23 06:46 | PN ---
DATE OF VISIT: 01/22/18 SUBJECTIVE: The patient is alert and arousable. I called his name and he opened his eyes briskly. He had dysphagia studies with radiology today and that seemed to be satisfactory. There was no obvious aspiration. Portable chest x-ray showed cardiomegaly but no pneumonitis. This patient does have rales and he also had spike in temperature to 102+. Will continue to monitor that. OBJECTIVE: LUNGS: Still has rales at the bases. NEUROLOGIC: He still persists to have right hemiparesis. The patient's condition remained stable but this [facility] but in the meantime, this patient will be given intravenous antibiotics because I felt that maybe he has a pneumonitis, maybe aspiration rather than hospital acquired pneumonia. The patient's Vital signs at 10 o'clock in the morning today showed a temperature 97.4, pulse 65, BP 117/71, respiratory rate 18, oxygen saturation 97 % on room air. His prognosis is poor in spite of his improvement. This patient has advanced senile dementia. MTDD
[2018-01-23] MEDS: TRANSDERM-SCOP 1.5 MG PATCH TD SCH (08:17)
[2018-01-23] MEDS: COREG PO SCH ×2 (08:17→17:20)
[2018-01-23] MEDS: ROCEPHIN 2 GM in SODIUM CHLORIDE 50 ML IV SCH (21:41)
[2018-01-24] MEDS: DECADRON 4 MG/ML SDV IVP SCH ×2 (03:57→11:07)
[2018-01-24] MEDS: COREG PO SCH (08:30)
[2018-01-24 10:23] VITALS: TEMP 98.4
[2018-01-24] MEDS: DILAUDID 1 MG/ML SYRINGE IVP PRN (11:54)
[2018-01-24 15:23] VITALS: BP 140/73
--- NOTE | 2018-01-31 12:59 | PN ---
DATE OF VISIT: 01/23/18 SUBJECTIVE: The patient is alert and does follow verbal commands at times. He did wake up when I called his name. He has a persistent right hemiparesis. He is moving his legs right as well as the left side. HEART: Audible and mostly regular with good tones ABDOMEN: Protuberant, nontender. I did feel that maybe a CT scan of the head to define where the CVA is probably in order however the relatively does not want any other procedure. He wanted the patient possibly to go to the [facility]. I did tell Tarsha Farris to explore that and if he qualifies that we would send him over to that facility. Otherwise we would [facility] the [facility]. VITAL SIGNS: Temperature 97.5 axillary, pulse 91, blood pressure 129/56, respiratory 18 and oxygen saturation 94 with 2 liters. PROGNOSIS: Poor. MTDD
--- NOTE | 2018-02-05 11:51 | PN ---
DATE OF VISIT: 01/19/18 SUBJECTIVE: 88 year old male was admitted to the hospital yesterday. He had weakness of the right upper extremity beginning with the hand and wrist. It has propagated to the proximal portion of the right upper extremity. The patient still has some mild resistance in the right upper extremity. The patient closes his eyes but arousable. His speech is somewhat slurred. He had problems swallowing food. I had informed them that the radiologist mentioned an MRI however this patient has pacemaker in the left upper anterior chest. The MRI probably can be done with Eva less than 1.3. This however would not be safe in this facility since there is a possibility that the MRI would affect the pacemaker although the chances are minimal but we do not have the abilities to change the pacemaker instantly. We did not have invasive cardiology. We will wait for the swallowing studies this coming Monday and see what the patient can do with regards to meals. I did also advise the family that we are keeping him until Monday to have an idea whether he has an aspiration problem or not. LUNGS: Still has rales in both lung courtney HEART: Audible and regular, not tachycardiac PROGNOSIS: Poor MTDD
--- NOTE | 2018-02-09 11:44 | HP ---
CHIEF COMPLAINT: Right sided weakness. HISTORY OF PRESENT ILLNESS: The patient, about 01/16/2018, was noted to have some weakness of the right hand. I had asked more particulars about it whether there was any speech problems or any other problems accompanying the weakness or tingling of the right hand and was told that there was none. I did see the patient on 01/17/2018 at the office and indeed the patient has some hemiparesis of the right upper extremity, although he was still able to lift his shoulder and arm to about 90 degrees. His speech was not slurred. He was answering questions and he was alert. The pupils were equal. The patient was sent for CT scan of the head and the CT did not show any acute changes and compared to a scan that was done on September 20, 2017. The patient's weakness had increased on 01/18/2018 and so admission was recommended and the family was asked before transferring from the intermediate to which hospital they would prefer, [facility] [place], [facility] or [facility] and they elected to come to [place] and the patient was then admitted as a direct admission. 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 PAST PERSONAL HISTORY: This patient was admitted 01/05/2018 because of pain in the hip after a fall. The studies, however, showed no fractures by pelvic CT or lumbar spine CT. Because of the pain, the patient was admitted to the hospital. 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 The patient at one time was admitted because of vomiting and diarrhea, which resolved spontaneously. He also had a spontaneous subdural hematoma and was surgically evacuated in the left parietal. Type II diabetes mellitus, senile dementia-progressive since 2008, atrial fibrillation with a pacemaker, prostatic carcinoma operated, inguinal hernia repair, cardiac catheterization with coronary angioplasty and stent, history of pneumonia, bilateral venous insufficiency with some dermal discolorations on both lower extremities, peripheral arterial disease, absent tibial pulses. FAMILY HISTORY: Mother had CVA and cerebral tumor, plus diabetes mellitus. Father had chronic obstructive lung disease. SOCIAL HISTORY: The patient is a and had been at the [facility] for some time. He is now in the intermediate since the last admission. The family felt that he should be in the intermediate. He does not smoke any cigarettes or use any tobacco products and no alcoholic beverages. MEDICATIONS: Prior to this admission consisted of: Multivitamin one capsule daily Carvedilol 3.125 mg twice a day Tylenol 650 mg every 6 hours prn Trazodone 50 mg at bedtime ALLERGIES: Codeine. REVIEW OF SYSTEMS: CONSTITUTIONAL: The patient has no fever and no chills. He has weakness of the right upper extremity. 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 No seizure disorder or syncopal episode. VISUAL: The patient is not able to answer correctly and he claims that he can see. RESPIRATORY: The patient does not seem to be short of breath in a sitting position. He has problems ambulating. CARDIOVASCULAR: Denies any chest pain or chest tightness. GASTROINTESTINAL: The patient may have some problems swallowing somewhat. There is some pooling of saliva. He denies any abdominal pain and no diarrhea. GENITOURINARY: The patient is continent of urine. MUSCULOSKELETAL: The patient has weakness of the right upper extremity. He has problems standing. ENDOCRINE: Negative. The patient does have diabetes mellitus type II. INTEGUMENT: The patient does not have any eruptions or redness. He had not been itching. HEMATOLOGIC: No signs of prolonged bleeding. PSYCHIATRIC: The patient has senile dementia and is not able to answer questions well. PHYSICAL EXAMINATION: GENERAL: We have an 88 year old male admitted to the hospital because of right hemiparesis. The CT scan of the head without contrast done 01/17/2018 does not show any acute infarction or hemorrhage. His condition has somewhat deteriorated requiring admission. The patient does answer to his name. He is not significantly lethargic. VITAL SIGNS: On admission showed a temperature of 97.5 at 10:58 a.m., pulse 71, blood pressure 122/73, respiratory rate 16, oxygen saturation 97 at room air. HEAD: Unremarkable, except for the defect in the left parietal area. FACE: Symmetrical and equal with no facial weakness. When you ask him to bite his teeth, which he followed initially and maybe there is some weakness on the right, but not very significant. No tenderness in the frontal or maxillary sinus areas. EYES: Pupils equal/reactive to light about 3 mm in size. Conjunctivae not pale. Sclerae not icteric. MOUTH: Unremarkable. THROAT: No inflammation, tumors or exudate. NECK: No masses. No bruit. No tenderness. No rigidity. No venous distention at near supine posture. CHEST: Essentially symmetrical and equal with good expansion. There is a pacemaker generator in the left upper anterior chest. No remarkable tenderness. LUNGS: Breath sounds are heard in both sides, diminished. Rales at the bases. No wheezing. HEART: Audible and regular with good tones. No murmurs. Not tachycardic. ABDOMEN: Protuberant, soft with no remarkable tenderness, no guarding. Bowel sounds are active. No masses palpable. EXTERNAL GENITALIA: Not examined. RECTAL: Not performed. LOWER EXTREMITIES: Edematous lower extremities. UPPER EXTREMITIES: The right upper extremity is weak and this patient is no longer able to raise the right upper extremity, but still has some resistance. There is some slight weakness of the right lower extremity. ASSESSMENT: 1. CVA LEFT WITH MILD RIGHT HEMIPARESIS 2. SENILE DEMENTIA, SEVERE 3. HISTORY OF SUBDURAL HEMATOMA TREATED WITH SURGICAL EVACUATION 4. HISTORY OF DVT AND PULMONARY EMBOLI WITH IVC 5. HISTORY OF TYPE II DIABETES MELLITUS 6. HISTORY OF ATRIAL FIBRILLATION WITH PACEMAKER DEFIBRILLATOR 7. HISTORY OF PROSTATIC CARCINOMA, POST SURGERY 8. HISTORY OF CORONARY ARTERY DISEASE, STATUS POST CARDIAC CATHETERIZATION, ANGIOPLASTY AND STENT 9. HISTORY OF DEGENERATIVE DISC DISEASE OF LUMBAR SPINE PLAN: 1. Repeat CT scan of the head today to see if there is any progression of the problem. 2. Further observation. [facility]
--- NOTE | 2018-02-15 09:48 | DS ---
PATIENT IDENTIFICATION: 88 year old male who was a resident of [facility] experienced some numbness and weakness of the right hand and right wrist. The weakness had progressed and the patient was seen at the office and had a CT scan of the head without any contrast. The CT scan showed no acute intracranial process. Chronic changes are essentially the same as in the past. The patient's problem had progressed and so he was admitted on 01/18/18. HOSPITAL COURSE: The patient was alert and responsive at times. He had more weakness of the right upper extremity and his speech is somewhat slurred. The patient had another CT scan of the head showing no difference from the day previous. The patient on 01/20/18 was more lethargic and very hard to arouse. The family was concerned and I did explain to them that most likely this is secondary to cerebral edema secondary to the infarction although we were not able to visualize this of CT scan. The daughter, Cely, does not desire to have and MRI of the brain and also it is very difficult for him to since he has a pacemaker. MRI's have been done with patient's who have pacemakers when it is below 1.3 without any significant problems, but there are occasional problems such as a complete malfunction of the pacemaker generator requiring immediate replacement, which we are not able to do at this facility. The patient was given a Decadron 2 mg IV every 6 hours. The patient on 01/21/18 is now alert and responsive. Temperature is normal. The patient most likely will be able to tolerate dysphagia study this coming Monday. Dysphagia study was successful and indeed this patient had some difficulty swallowing bolus. A recommendation as to the kind of food and the feedings is being followed. The patient on 01/23/18 was alert and does follow some verbal commands at times. He does wake up when I called his name. He has persistent right hemiparesis. Speech is somewhat slurred and not legible. I did order a CT scan of the head, but the relatives do not desire for him to undergo this procedure. They decided for him to be discharged on Hospice and choice for going back to [facility] with [facility] or go to [facility] facility. The patient on 01/24/18 was alert and does follow verbal commands, questionable whether he is oriented completely to person. I did talk to the Hospice nurse on 01/24/18 and after evaluation she felt that the patient meets criteria to be admitted to the facility at [facility]. Daughter agreed for the patient to be transferred to [place] to be admitted to the [facility]. He still has rales on both lung courtney at the bases. FINAL DIAGNOSES: 1. CEREBRAL VASCULAR ACCIDENT, LEFT WITH RIGHT HEMIPARESIS 2. SENILE DEMENTIA, SEVERE 3. HISTORY OF SUBDURAL HEMATOMA, LEFT PARIETAL TREATED WITH DECOMPRESSION 4. PERIPHERAL ARTERIAL DISEASE, ABSENT TIBIAL PULSES 5. HISTORY OF DVT AND PULMONARY EMBOLI WITH IVC FILTER 6. HISTORY OF ATRIAL FIBRILLATION WITH A PACEMAKER 7. HISTORY OF PROSTATIC CARCINOMA, STATUS POST SURGERY 8. HISTORY OF CORONARY ARTERY DISEASE, POST CARDIAC CATHETERIZATION, ANGIOPLASTY AND STENT PROGNOSIS: Poor. MTDD
== END 2018-01-24 15:00 | disposition hospice, inpatient (51) | DRG 66 ==
LOC: SCU 10:28
PROVIDERS: ADMIT General Practice; ATTEND General Practice
DX: I63.9 Cerebral infarction, unspecified (principal); G83.21 Monoplegia of upper limb affecting right dominant side; I69.328 Other speech and language deficits following cerebral infarction; F03.90 Unspecified dementia, unspecified severity, without behavioral disturbance, psychotic disturbance, mood disturbance, and anxiety; I73.9 Peripheral vascular disease, unspecified; Z86.718 Personal history of other venous thrombosis and embolism; I48.91 Unspecified atrial fibrillation; I25.10 Atherosclerotic heart disease of native coronary artery without angina pectoris; R13.10 Dysphagia, unspecified; R50.9 Fever, unspecified; R09.89 Other specified symptoms and signs involving the circulatory and respiratory systems; Z86.711 Personal history of pulmonary embolism; Z95.828 Presence of other vascular implants and grafts; Z95.5 Presence of coronary angioplasty implant and graft; Z95.0 Presence of cardiac pacemaker; Z85.46 Personal history of malignant neoplasm of prostate
CPT/HCPCS: 36415; 80053; 80061; 81001; 83880; 84443; 85025; 87040; 87081; 93005; 93010; 97802; 99223; 99232

== ENCOUNTER 2018-01-24 15:04 | Outpatient (CLI) | END 2018-01-24 15:05 | disposition hospice, inpatient (51) | LOC: AMBL 15:04 | PROVIDERS: ATTEND Internal Medicine | DX: R53.1 Weakness (principal); I69.351 Hemiplegia and hemiparesis following cerebral infarction affecting right dominant side ==